=== PATIENT | female | born 1940 | race Caucasian/White ===

== ENCOUNTER 2017-04-11 16:50 | Inpatient (IN) | payer MEDICARE, OTHER ==
[~2017-04-11 16:50] MED LIST: ISOVUE-370 76%-LOCM 1 ML ONE; Iopamidol 370 76% 50 ML VIAL FS ONE
[2017-04-11] MEDS ORDERED: Ondansetron HCl/PF 4 MG/2 ML Vial ONE (17:27)
[2017-04-11] MEDS ORDERED: Morphine 4 MG/ML VIAL ONE (17:27)
[2017-04-11 18:06] LABS: #Lymphocytes 0.7 thou/uL (1.20-3.40); #Monocytes 0.5 thou/uL (0.11-0.59); #Neutrophils 10.1 thou/uL (1.40-6.50); %Basophils 0.4 % (0.0-1.0); %Lymphocytes 6.2 % (21.0-51.0); %Monocytes 4.1 % (0.0-10.0); %Neutrophils 89.3 % (42.0-75.0); Hemoglobin 14.4 g/dL (12.0-16.0); Mean Corpuscular HGB CONC 32.9 g/dL (32.0-36.0); Mean Corpuscular Hemoglobin 31.1 pg (27.0-31.0); Mean Corpuscular Volume 94.5 fl (81.0-99.0); Mean Platelet Volume 10.5 fL (7.4-10.4); Platelet Count 110 thou/uL (130-400); RBC Distribution Width 16.3 % (11.5-14.5); Red Blood Cell (RBC) Count 4.63 mill/uL (4.20-5.40); White Blood Cell (WBC) Count 11.3 thou/uL (4.8-10.8)
[2017-04-11] MEDS ORDERED: ADMIXTURE FEE IVPB SCH (18:15)
[2017-04-11] MEDS ORDERED: STERILE WATER IVPB SCH (18:15)
[2017-04-11] MEDS ORDERED: MEROPENEM IVPB SCH (18:15)
[2017-04-11] MEDS ORDERED: Meropenem 1 GM, Admixture Fee 1 EACH in Sterile Water 20 ML IVPB SCH (18:15)
[2017-04-11 18:28] LABS: Troponin I 0.235 ng/mL (< 0.028)
[2017-04-11 18:31] LABS: ALT (SGPT) 61 U/L (8-55); AST (SGOT) 115 U/L (5-34); Albumin 2.9 g/dL (3.4-4.8); Alkaline Phosphatase 44 U/L (40-150); Anion Gap 20 mmol/L (10-20); BUN (Urea Nitrogen) 57 mg/dL (9.8-20.1); Bilirubin, Total 0.8 mg/dL (0.2-1.2); Calc. Creatinine Clearance 0 mL/min (70-130); Calcium 9.4 mg/dL (7.8-10.44); Carbon Dioxide 13 mmol/L (23-31); Chloride 107 mmol/L (98-107); Estimated GFR-MDRD 26; Globulin 3.6 g/dL (2.4-3.5); Glucose 138 mg/dL (83-110); Lipase 144 U/L (8-78); Potassium 4.8 mmol/L (3.5-5.1); Protein, Total 6.5 g/dL (6.0-8.3); Sodium 135 mmol/L (136-145)
[2017-04-11 18:41] LABS: CKMB 7.8 ng/mL (0-6.6)
[2017-04-11 18:51] LABS: Bilirubin Small (Negative); Blood, Urine Negative (Negative); Clarity CLOUDY (Clear); Glucose, Urine (Dipstick) Negative (Negative); Leukocyte Negative (Negative); Nitrite Negative (Negative); Protein, Urine (Dipstick) 30 mg/dL (Neg-Trace); Specific Gravity, Urine 1.028 (1.002-1.036); Urobilinogen 0.2 mg/dL (0.2-1.0)
[2017-04-11 18:54] LABS: Bacteria/HPF None Seen HPF (None Seen); RBC/HPF 0-3 HPF (0-3); Squamous Epithelial 0-3 HPF (0-3); WBC/HPF 0-3 HPF (0-3); Yeast-AUWi Flag 24.2 (0-25.0)
[2017-04-11 18:55] LABS: Hyaline Casts/LPF 0-3 HYALINE CAST LPF (0-3 Hyaline); Pathc Cast-AUWi Flag 5.01 (0-2.49)
[2017-04-11 18:56] LABS: Manual Microscopic Reviewed? No Path Casts Seen
[2017-04-11] MEDS ORDERED: Sodium Bicarb 50 MEQ/50 ML Abboject 8.4% SYRINGE ONE (19:00)
--- NOTE | 2017-04-11 20:38 | RAD ---
PORTABLE SEMI UPRIGHT CHEST ONE VIEW: History: 76-year-old female for tube placement evaluation. Comparison: 11-13-16 FINDINGS: An NG tube is noted extending into the stomach. Right subclavian catheter in place with the tip in th e superior vena cava. No evidence for pneumothorax, pleural effusion, or other acute process. Stable biapical pleural thickening. IMPRESSION: Minimal stable chronic changes. Left subclavian catheter and NG tubes in satisfactory position. No pn eumothorax, pleural effusion, or other acute process. POS: [facility]
--- NOTE | 2017-04-11 21:57 | CON ---
DATE OF CONSULTATION: 04/11/2017 REQUESTING PHYSICIAN: Dr. Sheng Presley. HISTORY OF PRESENT ILLNESS: A 76-year-old woman with a history of steroid dependent COPD. The patient has been in the inpatient rehabilitation due to steroid-induced myopathy. The patient p resented with acute onset generalized abdominal pain today. She was brought to the CT scan for evalu ation. Following the CT scan, she was directly admitted to the emergency department. I have been as ked to evaluate the patient for the abdominal pain suspicious for partial small-bowel obstruction. A t the time of my evaluation, the patient rates her pain at 10/10. She has had multiple episodes of n onbilious emesis throughout today. She reports having had an episode of diarrhea this morning. She does not recall the last time she passed flatus. The patient denies any unexplained weight loss. Sh e denies any recent hematochezia or melena. She reports profound fatigue over the last several weeks . She denies any symptoms of gastroesophageal reflux disease. She denies any fevers or chills. PAST MEDICAL HISTORY: Significant for steroid dependent COPD, coronary arterial disease, aortic valv ular disease. Other pertinent past medical history includes hypothyroidism, obstructive sleep apnea, gastroesophageal reflux disease, chronic anxiety disorder and degenerative arthritic disease. PAST SURGICAL HISTORY: Pertinent for open cholecystectomy, total abdominal hysterectomy, partial col ectomy with primary anastomosis for diverticular disease, exploratory laparotomy and segmental small bowel resection with primary anastomosis for acute small-bowel obstruction, patient also has had perc utaneous transluminal coronary angiography. I suspect no stent was placed. Coronary arterial bypass graft and also bilateral knee surgeries. SOCIAL HISTORY: Patient is . She denies any cigarette smoking, ethanol or illicit drug abuse . FAMILY HISTORY: Noncontributory for this patient's age. PREHOSPITAL MEDICATION: Has been reviewed and is extensive. ALLERGIES: NEOMYCIN and STATINS. REVIEW OF SYSTEMS: A 10-point review of system is essentially unremarkable except for as stated in p ast medical history and chief complaint. PHYSICAL EXAMINATION: GENERAL: This reveals a 76-year-old normally developed woman who is otherwise coherent, interactive and appears stated age. The patient is alert and oriented x3. She appears to be in moderate acute d istress secondary to abdominal pain. VITAL SIGNS: Initial vital signs included a systolic blood pressure of 104, heart rate was in the 12 0, respiratory rate was 18, oxygen saturation is 100% on 2 L by nasal cannula oxygen. HEENT: Reveals normocephalic and atraumatic. Pupils equal, round, reactive to light and accommodati on. Extraocular muscles are intact bilaterally. No sclerae icterus is present. HEART: Reveals regular rate with sinus tachycardia. No murmurs or gallops auscultated. LUNGS: Clear to auscultation bilaterally. Breathing is regular and unlabored. ABDOMEN: Soft and nondistended. She has diffuse tenderness to palpation, which is nonfocal. Bowel sounds hypoactive. Liver and spleen nonpalpable below costal margins. EXTREMITIES: Reveals 2+ radial and pedal pulses bilaterally. No ankle edema is present. NEUROLOGIC: Reveals no focal deficits present. PERTINENT LABORATORY FINDINGS: Today includes a CBC with 11,300 white blood cells, hemoglobin 14.4, hematocrit is 43.7, platelet count is 110,000. Metabolic profile: Sodium 135, potassium is 4.8, chl oride is 107, bicarbonate 13, BUN 57, creatinine is 1.88, glucose is 138, lactic acid is 4.6, total b ilirubin is 0.8, AST and ALT noted at 115 and 61, respectively. Troponin I is elevated at 0.235. Se rum lipase is mildly elevated at 144. I have reviewed previously obtained noncontrast CT scan of the abdomen and pelvis, which reveals mildly dilated proximal small bowel, no free peritoneal fluid or p neumoperitoneum is noted. The involved dilated small bowel wall is thickened. IMPRESSION: Acute abdominal pain, likely secondary to acute partial small-bowel obstruction versus acute gastroen teritis versus acute ischemic enterocolitis. PLAN: 1. Nasogastric tube will be placed for decompression. 2. We will obtain a repeat CT scan of the abdomen and pelvis at this time with p.o. and IV contrast. 3. In the interim, we will provide patient with aggressive fluid resuscitation prior to repeat CT sc an of abdomen and pelvis. 4. Serial physical examination will be continued. 5. There is no acute surgical indication for this patient at this time; however, should a CT scan of the abdomen and pelvis or serial clinical examination should indicate, we will consider surgical exp loration at that time. Above findings and plan has been discussed with the patient and granddaughter at bedside. They both indicated understanding of information given. I have answered their questions. Thank you again, Dr. Presley, for allowing me the opportunity to participate in the care of this ashley ent.
[2017-04-11 22:52] LABS: Lactic Acid 2.7 mmol/L (0.5-2.2)
--- NOTE | 2017-04-11 23:25 | CT ---
ABDOMEN AND PELVIS CT SCAN WITH AND WITHOUT IV CONTRAST: History: Worsening abdominal pain. Comparison: Noncontrast study, 04-11-17. FINDINGS: Again noted are some parenchymal changes in the right lower lobe. Oral contrast was given approximate ly 2 hours ago, although oral contrast is still only within the stomach and has not progressed into t he duodenum. There is noted to be an area of abnormal intramural gas noted within the fourth portion of the duodenum raising concern for either that of a distal duodenal ulcer or possibly a focal area o f necrosis. There is some minimal focal decreased enhancement in the wall of the duodenum adjacent to this abnormal gas. There is notably one tiny punctate focus of extraluminal gas noted in the adjacen t mesentery concerning for a microperforation. The remainder of the small bowel demonstrates some dil atation and some minimal contrast enhancement of the wall as well as some surrounding mesenteric fat stranding. There is some minimal free fluid around the liver and in the pelvis. The celiac artery and superior mesenteric artery and inferior mesenteric arteries are patent. There is no noted to be a so mewhat flattened IVC raising concern for possible hypovolemia. There are multiple bilateral renal cys ts. Multiple anterior abdominal wall fat containing hernias are noted. There is some reflux into the distal esophagus from the stomach. IMPRESSION: Some abnormal gas within the wall of the fourth portion of the duodenum as well as some surrounding d ecreased wall enhancement and one very tiny punctate focus of gas within the mesentery raising concer n for an area of necrosis and microperforation from ischemia or possibly associated with an ulceratio n. The remainder of the small bowel shows some heterogeneous enhancement and some periintestinal mese nteric fat stranding which can also be seen in ischemia, but is nonspecific. Minimal free fluid aroun d the right lobe of the liver and also within the pelvis. Gastroesophageal reflux. Bilateral renal cy sts. Findings were discussed with Dr. Larson by phone at 10:40 p.m., including the need for potential surge ry. Code CR POS: [facility]
[2017-04-12] MEDS ORDERED: HYDROcodone/Acetaminophen 5/325 mg Tablet PO PRN (00:47)
[2017-04-12] MEDS ORDERED: Morphine 2 MG/ML SYRINGE SLOW IVP PRN (00:47)
[2017-04-12] MEDS ORDERED: Acetaminophen 325 MG TAB PO PRN (00:47)
[2017-04-12 00:58] VITALS: BMI 27.8
[2017-04-12] MEDS ORDERED: Pantoprazole 40 MG VIAL IVP SCH ×3 (01:30→17:00)
[2017-04-12] MEDS: Sodium Bicarbonate 75 MEQ in Dextrose 5% in Water 500 ML IV SCH ×4 (01:45→07:28)
[2017-04-12] MEDS: metroNIDAZOLE 500 MG in Premix Bag 1 BAG IVPB SCH ×2 (02:04→09:20)
[2017-04-12 02:22] LABS: Anion Gap 13 mmol/L (10-20); BUN (Urea Nitrogen) 59 mg/dL (9.8-20.1); Calc. Creatinine Clearance 32 mL/min (70-130); Calcium 8.4 mg/dL (7.8-10.44); Carbon Dioxide 19 mmol/L (23-31); Chloride 109 mmol/L (98-107); Estimated GFR-MDRD 25; Glucose 129 mg/dL (83-110); Potassium 4.9 mmol/L (3.5-5.1); Sodium 136 mmol/L (136-145)
[2017-04-12 02:33] LABS: Anisocytosis SLIGHT = 6-15 cells (100X) (0-5/hpf); Band 19 % (5-11); Lymphocytes 2 % (21-51); MDiff Complete? YES; Mean Corpuscular HGB CONC 32.7 g/dL (32.0-36.0); Mean Corpuscular Hemoglobin 31.3 pg (27.0-31.0); Mean Corpuscular Volume 95.9 fl (81.0-99.0); Mean Platelet Volume 10.3 fL (7.4-10.4); Monocytes 1 % (0-10); Neutrophil 78 % (42-75); PLT Morphology Comment Appears Decreased; Platelet Count 91 thou/uL (130-400); RBC Distribution Width 16.3 % (11.5-14.5); Red Blood Cell (RBC) Count 3.83 mill/uL (4.20-5.40); White Blood Cell (WBC) Count 12.8 thou/uL (4.8-10.8)
[2017-04-12] MEDS: MEROPENEM 1 GM/50 ML 1 GM in Premix Bag 1 BAG IVPB SCH ×2 (04:23→12:00)
[2017-04-12 05:55] LABS: Lactic Acid 1.6 mmol/L (0.5-2.2)
[2017-04-12] MEDS ORDERED: Meropenem 1 GM in Sodium Chloride 0.9% 100 ML IVPB SCH (06:00)
--- NOTE | 2017-04-12 06:33 | HP ---
CHIEF COMPLAINT: Abdominal pain, nausea, vomiting. HISTORY OF PRESENT ILLNESS: This is a 76-year-old pleasant lady, who was admitted to rehabilitation facility for progressive weakness due to steroid induced myopathy on the 03/26 and comes into the [facility] today because of sudden onset of severe abdominal pain, nausea and vomiting. The people out th were consulted and sent her to the hospital to do a CT scan and from there she came to our hospit al. Initial evaluation revealed a troponin of 0.035 and lactate of 4.6 because of the severe abdomin al pain. Dr. Larson was consulted and he has recommended the patient be admitted to the [facility] to rule out ischemic bowel. We are going to do a CT scan of the abdomen with p.o. contrast and IV contrast a s well for further investigation. She also had episodes of vomiting nonbilious material with no bloo d in it today. PAST MEDICAL HISTORY: Significant for steroid induced myopathy, acute renal failure on chronic kidne y injury, coronary artery disease, aortic stenosis, hypertension, hypothyroidism, XU, , GERD, a nxiety, systemic rheumatoid arthritis, CABG, cholecystectomy, hysterectomy, PTCA, bilateral knee surg eries, bilateral shoulder surgeries, and history of colon surgery. The patient also has moderate aor tic stenosis. PSYCHIATRIC HISTORY: Significant for anxiety and depression. PAST SURGICAL HISTORY: Significant for CABG x2, cholecystectomy, hernia repair, hysterectomy, knee s urgery. SOCIAL HISTORY: She is , lives near by the daughter. Denies alcohol, tobacco, or illicit jewell g use. FAMILY HISTORY: No strong family history of premature coronary artery disease, stroke or cancer. ALLERGIES: NEOMYCIN and STATIN. MEDICATIONS: Please see MAR. REVIEW OF SYSTEMS: Significant for abdominal pain and nausea, vomiting, otherwise no fever, no chill s, no headache, no eye pain, no hearing loss, no latencies. No cough or chest pain, diarrhea, dysuri a or polyuria. No memory or mood changes. No neck pain. PHYSICAL EXAMINATION: VITAL SIGNS: Blood pressure 108/85, pulse is 126, respirations 20, temperature afebrile. GENERAL: Patient is lying in bed in moderate distress because of the abdominal pain. HEENT: Atraumatic, normocephalic. Pupils are equally round, react to light. Extraocular movements are intact. Mucous members moist. NECK: Supple. No JVD. CHEST: Breath sounds heard. There are no rales or rhonchi. HEART: S1, S2. No murmurs or gallops. ABDOMEN: Diffusely tender. Bowel sounds are sluggish. No pulsatile masses noted. EXTREMITIES: No cyanosis, clubbing, or edema. Distal pulses present. NEUROLOGIC: Alert, awake, and oriented. No cranial deficits. No sensorimotor deficits. LABORATORY DATA: Lipase is 144. CT scan without contrast reveals enteritis and periumbilical hernia s. Chest x-ray was negative. Ejection fraction done on 10/2016 was 60%. Lactic acid is 4.6, tropon in I 0.235. WBC count is 11 with neutrophils of 83%, hemoglobin is 14, INR is 1.0. Potassium is 4.8 , creatinine is 1.8, AST is 115, ALT is 61. ASSESSMENT AND PLAN: 1. Abdominal pain with nausea and vomiting with a high lactic acid and elevated white count, rule ou t ischemic bowel. Consult Dr. Larson and follow his recommendations. Follow CT with IV contrast and p.o. contrast. 2. Lactic acidosis. IV fluids with 1 ampule of bicarbonate. 3. Follow lactate levels. Empirically treat with Zosyn. 4. Elevated troponins with a history of coronary artery disease, status post coronary artery bypass graft. We will consult Dr. Gusman. We will consult Cardiology and trend troponins. 5. Acute renal failure on chronic kidney disease. We will consult Dr. Freitas and continue IV fluids. 6. History of chronic obstructive pulmonary disease, stable. 7. Coronary artery disease status post coronary artery bypass graft, stable. 8. Moderate aortic stenosis, stable. 9. Hypothyroidism, stable. 10. History of dermatomyositis stable with steroid dependency, stable. We will put the patient on h ydrocortisone. Patient is FULL CODE right now. 11. Sequential compression devices for deep venous thrombosis prophylaxis. I will work with Dr. Danny kay and other consultants further caring for the patient.
--- NOTE | 2017-04-12 06:54 | OP ---
DATE OF OPERATION: 04/11/2017 PREOPERATIVE DIAGNOSES: 1. Acute abdominal pain. 2. Acute lactic acidosis secondary to dehydration secondary to possible ischemic bowel disease versu s gastroenteritis. 3. Acute kidney injury, secondary to #2. POSTOPERATIVE DIAGNOSES: 1. Acute abdominal pain. 2. Acute lactic acidosis secondary to dehydration secondary to possible ischemic bowel disease versu s gastroenteritis. 3. Acute kidney injury, secondary to #2. PROCEDURES PERFORMED: Placement of triple lumen left subclavian central venous catheter. INDICATIONS FOR PROCEDURE: This is a 76-year-old woman presented with acute severe abdominal pain. Noncontrast abdominal CT scan was suspicious for acute partial small-bowel obstruction versus gastroe nteritis versus ischemic gastroenteritis. The patient has a complicating acute lactic acidosis as we ll as acute kidney injury. Multiple attempts to secure a dependable peripheral IV access was then un successful. Placing a central venous catheter to facilitate therapeutics. DESCRIPTION OF PROCEDURE: Informed consent obtained from the [facility] Left chest wall was sterilely prepped and draped in usual fashion. Skin below the left clavicle anesthetized with 1% lidocaine. The left subclavian vein was cannulated with an 18 gauge introducer needle returning dark venous blood. Guidewire was passed through this needle and advanced into the s ubclavian vein without resistance. Needle was withdrawn over the guidewire. A stab incision was mad e adjacent to the guidewire using an 11 scalpel. Dilator was passed over the guidewire dilating subc utaneous tissues. Triple-lumen central venous catheter was then advanced over the guidewire and plac ed in the left subclavian vein without resistance and stopping at the 18 cm ivory. The guidewire was removed. Dark venous blood was aspirated from all 3 ports, which were then individually flushed with saline. Catheter was secured to the anterior chest wall using 3-0 silk suture at 2 points. Biopatc h and sterile dressings was applied. Portable chest x-ray was obtained, which reveals proper placeme nt and no pneumothorax. The patient tolerated this procedure without any apparent complication and r emains hemodynamically stable following completion of the procedure.
[2017-04-12] MEDS ORDERED: FLU VACC TS2017-18 (>65YR) 0.5 ML SYRINGE IM ONE (09:00)
--- NOTE | 2017-04-12 09:25 | RAD ---
KUB: Comparison: 04-11-17 History: Abdominal pain. FINDINGS: Single view of the abdomen shows a nonspecific, nonobstructed bowel gas pattern. Contrast is seen in the colon from previous contrast examination. Contrast is seen in the bladder. No obvious free air is seen on this examination. An NG tube is seen in the stomach. IMPRESSION: Nonobstructed bowel gas pattern. POS: [facility]
[2017-04-12] MEDS: Heparin 5,000 UNITS/ML VIAL SC SCH ×3 (09:26→21:37)
--- NOTE | 2017-04-12 11:05 | PRG ---
DATE OF SERVICE: 04/12/2017 SUBJECTIVE: Ms. Millan is awake and alert today. She reports a 7-8/10 abdominal pain. She denies any nausea at this time. Nasogastric tube returned over a liter of nonbilious effluent since placement yesterday. The patient denies any fever or chills. Urinary output has been approximately 30 mL hour . OBJECTIVE: VITAL SIGNS: Today includes blood pressure 124/69, pulse 122, respiratory rate is 22, maximum temper ature in the last 24 hours is 99 degrees Fahrenheit, oxygen saturation is 100% on 2 liters by nasal c annula oxygen. HEENT: Reveals normocephalic and atraumatic. Pupils equal, round, and reactive to light and accommo dation. HEART: Reveals regular rate with tachycardia. No murmurs or gallops auscultated. CHEST: Lungs clear to auscultation bilaterally. Breathing is regular and unlabored. ABDOMEN: Soft and moderately distended. She has severe pallor umbilical right-sided abdominal pain with gross rebound tenderness present. Bowel sounds hypoactive. Liver and spleen remains nonpalpabl e below costal margins. NEUROLOGIC: Reveals no focal deficits present. LABORATORY DATA: Today includes CBC with increased white blood cell count 12,800, hemoglobin 12.0, h ematocrit is 36.7, platelet count is 91,000. Metabolic profile: Sodium 136, potassium is 4.9, chlor manjula is 109, bicarbonate 19, BUN 59, creatinine is 1.92, glucose is 129. Lactate is normal today at 1 .6. IMPRESSION: 1. Persistent severe abdominal pain. 2. Acute kidney injury. 3. Resolving lactic acidosis. 4. I am concerned about the persistent abdominal pain given the CT scan findings suggestive of ische waleska process with microperforation. PLAN: 1. I have discussed the above findings with the patient and her daughter, Nohemi, via telephone conver dionisio. 2. I recommend exploratory laparotomy with possibility for small bowel resection. I am concerned th at the patient may have a closed loop obstructive process secondary to intra-abdominal adhesions. Th e patient and daughter indicates understanding of information given. I answered their questions.
--- NOTE | 2017-04-12 11:06 | CON ---
DATE OF CONSULTATION: 04/12/2017 HISTORY: The patient is a 76-year-old female who has been to our office before. She has chronic obs tructive pulmonary disease. She is on low flow O2. She presented with abdominal pain. She was seen by General Surgery. She is scheduled to go to surgery this morning for an exploratory l aparotomy. Small-bowel obstruction. She had pain off and on for a period of time, vomiting, also had some loose stools. PAST MEDICAL HISTORY: Pertinent for chronic obstructive pulmonary disease, coronary artery disease, reflux, hypertension, arthritis, renal insufficiency. PAST SURGICAL HISTORY: Have included bypass, gallbladder, hernia repair. SOCIAL/FAMILY HISTORY: No alcohol abuse or tobacco abuse. She has never smoked in the past. Her pulmonary function test done 11/2016 shows mild reduction of vital capacity, flows are normal, de creased capacity, normal essentially and normal study. MEDICATIONS FROM HOME: Her list of medicine from home includes prednisone 10 twice a day, Ranexa 100 0, omeprazole 20, vitamin, Dulera, Midodrine 5, metoprolol 12.5, methotrexate 7.5, lisinopril 10, Syn throid 25, Lasix 10, aspirin, allopurinol. ALLERGIES: NEOMYCIN. REVIEW OF SYSTEMS: Ten point negative. PHYSICAL EXAMINATION: GENERAL: She is much improved. She has had less abdominal pain compared to yesterday. VITAL SIGNS: Sats 100% on 2 liters, respiratory rate 18, temperature 98, pulse 122. CHEST: Chest revealed no wheezing. CARDIAC: Normal S1, S2. ABDOMEN: Soft, no masses. Initial chest x-ray shows no acute infiltrates. Previous surgical scar from her coronary artery bypa ss graft. White count 12,000, H&H 12 and 36, platelet count is low at 91,000. Creatinine 1.92. IMPRESSION: 1. Acute abdomen. 2. Nonsmoker with a relatively normal pulmonary function test. 3. Azotemia. 4. Rheumatoid arthritis. 5. Anxiety. 6. Depression. 7. Acid reflux. 8. Coronary artery disease. 9. Aortic stenosis. PLAN: Broad-spectrum antibiotics as per Surgery. Meropenem and Flagyl initiated. She is to go for a lap today. Pulmonary will follow postoperatively. This is a 50 minute time spent at the bedside for patient management and care.
[2017-04-12] MEDS ORDERED: Midazolam HCl 2 mg/2 ml Vial ONE (11:11)
[2017-04-12] MEDS ORDERED: Fentanyl 250 MCG/5 ML VIAL ONE (11:11)
[2017-04-12] MEDS ORDERED: Ondansetron HCl/PF 4 MG/2 ML Vial IVP PRN (12:43)
--- NOTE | 2017-04-12 13:14 | PDOC.PN ---
- Subjective Encounter Start Date: 04/12/17 Encounter Start Time: 09:15 -: old records requested/rev pt has abdominal pain, has NG tube with LIS, no fever has not passed BM or have bowel sound - Objective MAR Reviewed: Yes Vital Signs & Weight: Vital Signs (12 hours) Temp Pulse Resp BP Pulse Ox 04/12/17 07:53 98.8 F 122 H 22 H 100 04/12/17 07:00 98.7 F 113 H 20 124/69 100 04/12/17 04:00 98.8 F 122 H 22 H 125/68 100 04/12/17 01:45 99.0 F 116 H 20 100 Weight Weight 178 lb 3.2 oz I&O: 04/11/17 04/12/17 04/13/17 06:59 06:59 06:59 Intake Total 850 Output Total 400 Balance 450 Result Diagrams: 04/12/17 01:36 04/12/17 01:36 Radiology Reviewed by me: Yes (CT abdomen) EKG Reviewed by me: Yes (NSR) Phys Exam - Physical Examination Constitutional: NAD HEENT: PERRLA, moist MMs, sclera anicteric NG tube with LIS Neck: no JVD, supple Respiratory: no wheezing, no rales, no rhonchi Cardiovascular: RRR, no rub SM+ at aortic area right side rebount tenderness, Musculoskeletal: no edema, pulses present Neurological: non-focal, normal sensation, moves all 4 limbs Psychiatric: normal affect, A&O x 3 Skin: no rash, normal turgor Dx/Plan (1) Acute abdominal pain Code(s): R10.9 - UNSPECIFIED ABDOMINAL PAIN Status: Acute (2) Acute kidney failure Status: Acute (3) Demand ischemia of myocardium Code(s): I24.8 - OTHER FORMS OF ACUTE ISCHEMIC HEART DISEASE Status: Acute (4) Ischemia, bowel Code(s): K55.9 - VASCULAR DISORDER OF INTESTINE, UNSPECIFIED Status: Acute (5) Lactic acidosis Code(s): E87.2 - ACIDOSIS Status: Acute (6) Transaminitis Code(s): R74.0 - NONSPEC ELEV OF LEVELS OF TRANSAMNS & LACTIC ACID DEHYDRGNSE Status: Acute (7) Anxiety and depression Code(s): F41.9 - ANXIETY DISORDER, UNSPECIFIED; F32.9 - MAJOR DEPRESSIVE DISORDER, SINGLE EPISODE, UNSPECIFIED Status: Chronic (8) Arthritis, rheumatoid Code(s): M06.9 - RHEUMATOID ARTHRITIS, UNSPECIFIED Status: Chronic (9) CAD (coronary artery disease) Code(s): I25.10 - ATHSCL HEART DISEASE OF [place] CORONARY ARTERY W/O ANG PCTRS Status: Chronic (10) COPD (chronic obstructive pulmonary disease) Status: Chronic (11) Dyslipidemia Code(s): E78.5 - HYPERLIPIDEMIA, UNSPECIFIED Status: Chronic (12) GERD (gastroesophageal reflux disease) Code(s): K21.9 - GASTRO-ESOPHAGEAL REFLUX DISEASE WITHOUT ESOPHAGITIS Status: Chronic (13) Gout Code(s): M10.9 - GOUT, UNSPECIFIED Status: Chronic (14) Hypertension Code(s): I10 - ESSENTIAL (PRIMARY) HYPERTENSION Status: Chronic (15) Moderate aortic stenosis Code(s): I35.0 - NONRHEUMATIC AORTIC (VALVE) STENOSIS Status: Chronic - Plan cont current plan of care, continue antibiotics * continue IVF * keep NPO * control pain with pain meds * still has no improvement with conservative treatment * ? may need surgery * continue NG tube with LIS * supportive care * surgeon on case. * monitor labs Review of Systems - Review of Systems ENT: negative: Ear Pain, Ear Discharge, Nose Pain, Nose Discharge, Nose Congestion, Mouth Pain, Mouth Swelling, Throat Pain, Throat Swelling, Other Respiratory: negative: Cough, Dry, Shortness of Breath, Hemoptysis, SOB with Excertion, Pleuritic Pain, Sputum, Wheezing Cardiovascular: negative: chest pain, palpitations, orthopnea, paroxysmal nocturnal dyspnea, edema, light headedness, other Gastrointestinal: Nausea, Abdominal Pain. negative: Vomiting, Diarrhea, Constipation, Melena, Hematochezia, Other Genitourinary: negative: Dysuria, Frequency, Incontinence, Hematuria, Retention , Other Musculoskeletal: negative: Neck Pain, Shoulder Pain, Arm Pain, Back Pain, Hand Pain, Leg Pain, Foot Pain, Other Skin: negative: Rash, Lesions, Abad, Bruising, Other - Medications/Allergies Allergies/Adverse Reactions: Allergies Allergy/AdvReac Type Severity Reaction Status Date / Time latex Allergy Rash Verified 04/12/17 01:00 neomycin Allergy Hives Verified 04/12/17 01:00 Medications: Current Medications Acetaminophen (Tylenol) 650 mg PO Q4H PRN PRN Reason: Headache/Fever or Pain Hydrocodone Bitart/Acetaminophen ([place] 5/325) 1 tab PO Q4H PRN PRN Reason: Moderate Pain (4-6) Fentanyl (Pacu-Sublimaze) 50 mcg SLOW IVP Q10MIN PRN PRN Reason: Moderate to Severe Pain (6-10) Stop: 04/12/17 15:43 Heparin Sodium (Porcine) (Heparin) 5,000 units SC TID [facility] Last Admin: 04/12/17 09:26 Dose: Not Given Metronidazole 500 mg/ Device 100 mls @ 100 mls/hr IVPB 0200,1000,1800 [facility] Last Admin: 04/12/17 09:20 Dose: 100 mls Sodium Bicarbonate 75 meq/ (Dextrose/Water) 575 mls @ 125 mls/hr IV 0115 [facility] Last Admin: 04/12/17 07:28 Dose: 575 mls Meropenem 1 gm/ Device 50 mls @ 100 mls/hr IVPB 0400,1200,2000 [facility] Last Admin: 04/12/17 04:23 Dose: 50 mls Morphine Sulfate (Morphine) 2 mg SLOW IVP Q4H PRN PRN Reason: Mild-Moderate Pain (1-5) Ondansetron HCl (Pacu-Zofran) 4 mg IVP ONE PRN PRN Reason: Nausea/Vomiting Stop: 04/12/17 15:43 Pantoprazole Sodium (Protonix) 40 mg IVP Q12HR [facility] Last Admin: 04/12/17 09:25 Dose: 40 mg Sodium Chloride (Flush - Normal Saline) 10 ml IV Q12HR [facility] Last Admin: 04/12/17 09:26 Dose: 10 ml
[2017-04-12] MEDS ORDERED: Fentanyl 100 MCG/2 ML VIAL ONE ×2 (14:26→15:26)
--- NOTE | 2017-04-12 14:41 | OP ---
DATE OF CONSULTATION: 04/12/2017 GI ENDOSCOPY NOTE SURGEON: Gurmeet Barrios M.D. MILL MANAGER SURGEON: None. PROCEDURES: 1. Esophagogastroduodenoscopy, diagnostic, intraoperative. 2. Flexible sigmoidoscopy, diagnostic, intraoperative. INDICATIONS: 1. Bowel perforation, suspected to be in the fourth portion of the duodenum based on CT imaging appe arance. 2. History of left hemicolectomy. I was called into the operating room by Dr. Larson, who was in the middle of open laparotomy for suspe cted perforation of the fourth portion of the duodenum, based on CT appearance. The patient presente d with acute abdomen and peritonitis. Dr. Larson is requesting intraoperative EGD to try to localize the area of perforation and assess etiology, whether it be ischemic bowel versus duodenal ulcer. He had to take down some dense adhesions from the area of colocolonic anastomosis in the left colon and is requesting evaluation of the anastomotic site with flexible sigmoidoscopy as well. The portable e ndoscopy equipment was brought into the operating room. At first, a Pentax adult upper endoscope was placed into the oropharynx and passed through the cricopharyngeus under direct visualization. The e sophageal mucosa appeared normal throughout. The endoscope was passed into the stomach. Forward and retroflexed views of the entire gastric mucosa were obtained. There are few small ulceration in the gastric fundus which may just represent nasogastric tube trauma. Remainder of the gastric mucosa ap pears normal. The endoscope was passed through the pylorus and into the first and second portions of the duodenum. Unfortunately, the upper endoscope was not long enough with the way the body was posi tioned to reach the area in question and therefore, the upper endoscope was removed and a Pentax adul t colonoscope was used. This was passed through the cricopharyngeus beyond the pylorus and all the w ay to the first portion of the jejunum. Careful examination of the entire duodenum was made. In the fourth portion of the duodenum, there is an edematous ulcerated area. There is no active bleeding f rom this site. I was unable to see into the base of this area, but it does appear to be a duodenal u lcer. On laparoscopic views, this is the site of the perforation confirmed by Dr. Larson with leakage of gas from the bowel at this site with endoscope passage. Therefore, these areas of perforation an d fourth portion of the duodenum was confirmed. The surrounding duodenal mucosa appears normal, so t his is not felt likely to represent ischemic bowel, but rather discrete duodenal ulcer which is perfo rated spontaneously. The endoscope was then removed from the patient's mouth and we changed position . The scope was passed per the rectum. After digital rectal exam was unremarkable, the colonoscope was passed up to 70 cm from the anal verge which is estimated to be just beyond the splenic flexure. This was an unprepped flexible sigmoidoscopy. There was a small amount of adherent stool, but the m ucosa of the entire colon examined and appeared normal. There was a healthy appearing anastomosis in the rectosigmoid area. There was no evidence of perforation or disruption of the lower colonic anas tomosis. The colonoscope was completely withdrawn and my portion of the procedure was complete. Dr. Larson then proceeded with the case. IMPRESSION: 1. Discrete ulcer in the fourth portion of the duodenum, unable to visualize the base, nonbleeding, but representing the site of spontaneous perforation. 2. Few small ulcerations in the gastric fundus, possibly just representing nasogastric tube trauma. 3. Otherwise, normal esophagogastroduodenoscopy. 4. Healthy anastomosis in rectosigmoid colon. 5. Otherwise, normal unprepped flexible sigmoidoscopy to 70 cm. RECOMMENDATIONS: 1. Dr. Larson to complete surgery. 2. Per Dr. Larson, plan will likely be to have the patient on a PPI drip with drains in place and all ow for ulcer to heal. He plans to feed via nasojejunal tube in the meantime. 3. Please call back if GI can be of any assistance going forward.
[2017-04-12] MEDS ORDERED: HYDROmorphone 0.5 MG/0.5 ML SYRINGE ONE (15:26)
[2017-04-12] MEDS ORDERED: Fentanyl 20 MCG/ML 250 ML IVPB SCH (17:00)
[2017-04-12] MEDS ORDERED: ePHEDrine/0.9% NaCl/PF SYRINGE 50 mg/10 ml ONE (17:30)
[2017-04-12] MEDS ORDERED: Lidocaine 1% PF 5 ML VIAL ONE (17:30)
[2017-04-12] MEDS ORDERED: Propofol 200 MG/20 ML VIAL ONE (17:30)
[2017-04-12] MEDS ORDERED: Hydrocortisone Sod Succ/PF 100 mg/2 ml Vial ONE (17:30)
[2017-04-12] MEDS ORDERED: Succinylcholine Chloride 20 MG/ML 10 ml SYRINGE FS ONE (17:30)
[2017-04-12] MEDS ORDERED: PHENYLEPHRINE-NS 100 MCG/ML 10 ML SYRINGE ONE (17:30)
[2017-04-12] MEDS: Acetaminophen 1,000 MG in Premix Bag 1 BAG IVPB SCH (17:49)
[2017-04-12 18:35] LABS: Actual Bicarbonate (HCO3a) 19.4 mEq/L (22-26); Base Excess (BEa) -5.7 mEq/L (0 (+/-) 2.5); CO2 Tension 36.2 mmHg (35.0-45.0); Calcium, Ionized 1.1 mmol/L (1.12-1.30); Hematocrit-ABG 30.1 % (36.0-47.0); Hemoglobin (Hb) 9.8 g/dL (12.0-16.0); O2 Tension (PaO2) 173.5 mmHg (80.0-100.0); Puncture Site RRA; pH, Arterial 7.35 (7.35-7.45)
[2017-04-12] MEDS ORDERED: Lactated Ringer's 1,000 ML IV SCH (18:45)
[2017-04-12] MEDS: Lactated Ringer's 1,000 ML IV SCH ×2 (19:42→21:39)
--- NOTE | 2017-04-12 19:47 | OP ---
DATE OF OPERATION: 04/12/2017 PREOPERATIVE DIAGNOSES: 1. Acute abdominal pain. 2. Suspected ischemic enteritis with partial small-bowel obstruction. POSTOPERATIVE DIAGNOSES: 1. Acute abdominal pain. 2. Perforated fourth portion duodenal ulcer. 3. Extensive intra-abdominal adhesions with acute small-bowel obstruction. SURGERY PERFORMED: 1. Exploratory laparotomy. 2. Extensive adhesiolysis. 3. Oversew of fourth portion of the duodenal ulcer with Maulik patch. 4. Segmental small bowel resection with primary jejunojejunostomy. 5. Feeding surgical jejunostomy tube placement. SURGEON: Frederic Larson D.O. ANESTHESIA: General endotracheal. ESTIMATED BLOOD LOSS: 300 mL. FLUIDS GIVEN: 2200 mL crystalloids. SPONGE AND INSTRUMENT COUNT: Certified as correct x2. COMPLICATIONS: None apparent at the time of operation. INDICATIONS FOR OPERATION: This is a 76-year-old woman presented with severe abdominal pain. Clinic al and radiographic examination was consistent with a partial small-bowel obstruction with a suspicio n for ischemic proximal jejunum at the level of the fourth portion of the duodenum with micro-pneumop eritoneum adjacent to this area. Findings are consistent with a 3-mm ulcer perforation of the fourth portion of the duodenum at the ligament of Treitz. Also noted, extensive intra-abdominal adhesions causing multiple partial closed loop small bowel obstructions. DESCRIPTION OF PROCEDURE: Informed consent was obtained from the patient who was brought to the oper ating room and placed in supine position. Following general anesthesia, previous nasogastric tube wa s placed to wall suction. The abdomen was sterilely prepped and draped in the usual fashion. Midlin e incision was made using #10 scalpel through the previous incisional scar. Incision was carried kevon n to the level of the fascia using cautery with good hemostasis. Fascia is incised along the line of incision. The peritoneal cavity was carefully entered using a scalpel. Immediately, upon entrance into the peritoneal cavity. Extensive amount of intra-abdominal adhesions was encountered involving multiple loops of small bowel, remnant right and transverse colon as well as the stomach. Meticulous dissection of bowel was carried out, taking down adhesions as they were encountered. Once the right colon as well as the transverse colon were mobilized to reflect this off of the underlying small bow el, large amount of purulent pus was evacuated. Multiple loculations of the interloop abscesses were broken down by finger dissection. We then followed this down to the level of the ligament of Treitz where the bowel was markedly inflamed and thick walled. Given a prior knowledge of microperforation in this area and not seen any obvious ulcer, I invited the city auditor and esophagogastroscop y was performed by the city auditor. It was noted that there was bubbles of air once the stoma ch was insufflated. Then decided therefore to proceed with taking down of the fourth portion of the duodenum. This was mobilized off the ligament of Treitz using Metzenbaum scissors. Care was taken t o avoid injury to underlying structures. Immediately, there was 3-mm ulcer perforation in the antime senteric border. This was repaired with interrupted sutures of 3-0 silk and then imbricated with int errupted sutures of 3-0 silk in a Lembert fashion. The small bowel was then mobilized all the way do wn to the level of the terminal ileum taken down adhesions as they were encountered. It was noted th at the segment of jejunum was completely adhered to the level of the colorectal anastomosis. This wa s difficult to mobilize as this was densely adhered to this area. Using Metzenbaum scissors alternat ed with finger dissection, the loop of jejunum was mobilized up off the deep pelvis, taking care to a void injuries to the colorectal anastomosis. I intentionally performed an enterotomy of the adhering jejunal loop to avoid inadvertent injury to the colorectal anastomosis. This segment of bowel was q uite macerated and was densely adhered, decision was made therefore to perform a segmental small lilian l resection. To achieve this, I created a rent proximal and distal to the involved segment using a h emostat. The bowel was divided using a ROSIE stapler. Mesentery of the specimen was serially divided using LigaSure with good hemostasis. The specimen was passed off the operative field for onward bernard smission to pathology. At this juncture, the city auditor performed a flexible proctoscopy and the distal colon and rectum was insufflated and tested under saline. No bubbles of air were noted a s the colorectal anastomosis was intact. We then proceeded at this juncture to perform anastomosis. The staple end of the jejunum was brought in a [id number]-blmm fashion using interrupted sutures of 3-0 silk. Enterotomies were created, performed on both apices through which free ends of ROSIE stapler wa s introduced and a functional end-to-end, but anatomic [id number]-fr-[id number] jejunojejunostomy was perfected. The enterotomies were then closed using a reload of the ROSIE. Mesenteric defect was then repaired us ing interrupted sutures of 2-0 silk. I then turned my attention to the repaired fourth portion of th e duodenum which was inspected for good integrity. The abdominal cavity was copiously irrigated josé antonio r with saline solution at this juncture. I mobilized a lip of omentum placed in this over the repair site of the ulcer perforation in a Maulik patch fashion. This was achieved using 3-0 silk suture. Finding no other pathology, we decided to place a feeding jejunostomy tube as this patient was quite malnourished prior to surgery and will be placed on bowel rest and continuous infusion of proton pump inhibitor for days. I proceeded to place a jejunostomy tube. To achieve this, a 12-Beninese KAVITA jeju nostomy tube was brought into the peritoneal cavity through a separate stab incision in left upper qu adrant. A pursestring suture was made distal to the ulcer repair site, but proximal to the jejunojej unal anastomosis. Enterotomy was made at the center of the pursestring suture. I then introduced th e jejunostomy tube and advanced this distally. The pursestring suture was cinched into place and the n secured in the posterior peritoneum within the abdominal cavity using interrupted sutures of 3-0 si lk at 3 points. The abdominal cavity was again reirrigated with a saline solution, noting good hemos tasis. A #19 Deangelo drain was introduced adjacent to the ulcer repair site and a second Jose Juan-Barba drain was placed in the deep pelvis. Both drains were allowed to exit the abdominal cavity through separate stab incision, securing the drains to the intra-abdominal wall using 2-0 silk suture. The j ejunostomy tube was also secured to intra-abdominal wall using 2-0 silk suture. Finding no other pat hology, exploration was terminated. All sponges and instruments were accounted for. Small bowel was returned to normal anatomic location after 2 pieces of Seprafilm was placed in the deep pelvis and b etween small bowel loops. The redundant colon was drawn over the small bowel. The fascia was approx imated in the midline using a running stitch of #1 single stranded PDS. The subcutaneous tissues wer e then copiously irrigated with 3 liters of saline with pulse lavage. Good hemostasis noted in place . The skin incision was closed using shakeel. Wound VAC dressing was placed over the closure. The patient tolerated the operation without any apparent complication and was returned to the Intensive C are Unit in critical, but stable condition.
[2017-04-12 20:27] LABS: Actual Bicarbonate (HCO3a) 20.2 mEq/L (22-26); Base Excess (BEa) -4.8 mEq/L (0 (+/-) 2.5); CO2 Tension 36.9 mmHg (35.0-45.0); Hematocrit-ABG 28.1 % (36.0-47.0); Hemoglobin (Hb) 9.4 g/dL (12.0-16.0); O2 Tension (PaO2) 122.5 mmHg (80.0-100.0); pH, Arterial 7.36 (7.35-7.45)
[2017-04-12 20:28] LABS: Calcium, Ionized 1.2 mmol/L (1.12-1.30); Puncture Site ER
[2017-04-12 20:29] LABS: ALV-art Gradient 116.575 (0-20)
[2017-04-12] MEDS ORDERED: Calcium Chloride 13.6 MEQ in Sodium Chloride 0.9% 100 ML IVPB SCH (21:00)
[2017-04-12] MEDS ORDERED: STERILE WATER SLOW IVP SCH ×6 (22:30)
[2017-04-12] MEDS ORDERED: MEROPENEM SLOW IVP SCH ×6 (22:30)
[2017-04-12] MEDS ORDERED: ADMIXTURE FEE SLOW IVP SCH ×6 (22:30)
[2017-04-13] MEDS: Acetaminophen 1,000 MG in Premix Bag 1 BAG IVPB SCH ×4 (00:34→18:09)
[2017-04-13] MEDS: Pantoprazole 40 MG VIAL IVP SCH ×3 (00:36→18:09)
[2017-04-13] MEDS ORDERED: ADMIXTURE FEE SLOW IVP SCH (06:00)
[2017-04-13] MEDS ORDERED: STERILE WATER SLOW IVP SCH (06:00)
[2017-04-13] MEDS ORDERED: MEROPENEM SLOW IVP SCH (06:00)
[2017-04-13 06:04] LABS: #Lymphocytes 0.8 thou/uL (1.20-3.40); #Monocytes 0.2 thou/uL (0.11-0.59); #Neutrophils 7.7 thou/uL (1.40-6.50); %Basophils 0.5 % (0.0-1.0); %Lymphocytes 8.8 % (21.0-51.0); %Monocytes 2.4 % (0.0-10.0); %Neutrophils 88.3 % (42.0-75.0); Hemoglobin 8.2 g/dL (12.0-16.0); Mean Corpuscular HGB CONC 31.7 g/dL (32.0-36.0); Mean Corpuscular Hemoglobin 30.6 pg (27.0-31.0); Mean Corpuscular Volume 96.8 fl (81.0-99.0); Mean Platelet Volume 10.3 fL (7.4-10.4); Platelet Count 76 thou/uL (130-400); RBC Distribution Width 16.2 % (11.5-14.5); Red Blood Cell (RBC) Count 2.67 mill/uL (4.20-5.40); White Blood Cell (WBC) Count 8.7 thou/uL (4.8-10.8)
[2017-04-13] MEDS: Meropenem 1 GM, Admixture Fee 1 EACH in Sterile Water 20 ML SLOW IVP SCH ×2 (06:06→13:58)
[2017-04-13 06:22] LABS: Anion Gap 12 mmol/L (10-20); BUN (Urea Nitrogen) 52 mg/dL (9.8-20.1); Calc. Creatinine Clearance 37 mL/min (70-130); Calcium 8.9 mg/dL (7.8-10.44); Carbon Dioxide 24 mmol/L (23-31); Chloride 107 mmol/L (98-107); Estimated GFR-MDRD 30; Glucose 142 mg/dL (83-110); Magnesium 1.5 mg/dL (1.6-2.6); Sodium 138 mmol/L (136-145)
[2017-04-13] MEDS ORDERED: Fentanyl 100 MCG/2 ML VIAL ONE ×2 (07:27→07:30)
[2017-04-13] MEDS: Heparin 5,000 UNITS/ML VIAL SC SCH ×3 (07:33→22:54)
[2017-04-13 08:13] LABS: Actual Bicarbonate (HCO3a) 20.8 mEq/L (22-26); Base Excess (BEa) -2.4 mEq/L (0 (+/-) 2.5); Calcium, Ionized 1.2 mmol/L (1.12-1.30); Hematocrit-ABG 23.7 % (36.0-47.0); Hemoglobin (Hb) 7.9 g/dL (12.0-16.0); O2 Tension (PaO2) 161.6 mmHg (80.0-100.0); pH, Arterial 7.47 (7.35-7.45)
[2017-04-13 08:14] LABS: Puncture Site RRA
--- NOTE | 2017-04-13 08:26 | RAD ---
PORTABLE CHEST: 04/13/2017 PROVIDED CLINICAL HISTORY: Respiratory insufficiency. COMPARISON: 04/11/2017 FINDINGS: Significant interval change with respect to the prior examination is not evident. IMPRESSION: As above. POS: FLORES
[2017-04-13] MEDS ORDERED: Ondansetron HCl/PF 4 MG/2 ML Vial IVP PRN (09:19)
[2017-04-13] MEDS ORDERED: diphenhydrAMINE 50 MG/ML VIAL IM/IV PRN (09:19)
[2017-04-13] MEDS ORDERED: Promethazine HCl 25 MG/ML VIAL IM PRN (09:19)
[2017-04-13] MEDS ORDERED: Zolpidem Tartrate 5 MG TAB PO PRN (09:19)
[2017-04-13] MEDS ORDERED: diphenhydrAMINE 25 MG CAP PO PRN (09:19)
[2017-04-13] MEDS ORDERED: diphenhydrAMINE 50 MG/ML VIAL IM PRN (09:19)
[2017-04-13] MEDS ORDERED: HYDROmorphone 10 mg/100 ml CADD IVPB PRN (09:19)
[2017-04-13] MEDS ORDERED: Naloxone HCl 0.4 mg/ml Vial IV PRN (09:19)
[2017-04-13] MEDS ORDERED: Communication Order-Pharmacy FS SCH (09:30)
--- NOTE | 2017-04-13 09:31 | PRG ---
DATE OF SERVICE: 04/13/2017 SUBJECTIVE: She is extubated post-surgery, she is doing well, less abdominal pain. PHYSICAL EXAMINATION: VITAL SIGNS: Blood pressure 130/70, pulse is 87, respirations 18. CHEST: Reveals bilateral rhonchi. CARDIAC: Normal S1-S2. No gallops. ABDOMEN: Soft. No masses. LABORATORY: White count 8000, H&H 8 and 25, platelet count low at 76. X-ray was otherwise unremarka ble. Creatinine 1.6. IMPRESSION: 1. Abdominal sepsis. 2. Chronic obstructive pulmonary disease. PLAN: Continue neb treatments, broad-spectrum antibiotics per Surgery. She is thrombocytopenic. I will follow.
[2017-04-13] MEDS: Dextrose 5 %-0.45 % NaCl 1,000 ML IV SCH ×2 (10:00→21:11)
[2017-04-13] MEDS: MEROPENEM 1 GM/50 ML 1 GM in Premix Bag 1 BAG IVPB SCH ×2 (10:02→22:57)
--- NOTE | 2017-04-13 10:40 | PRG ---
DATE OF SERVICE: 04/13/2017 SUBJECTIVE: Ms. Millan is postoperative day #1 status post exploratory laparotomy, oversew of a perfor ated duodenal ulcer. The patient is awake and alert on mechanical ventilator support. She is tolera ting ventilatory wean. She reports adequate pain control. Urinary output has been marginal, but imp roving at 25-30 mL per hour which is slightly less than 0.5 liters per kilogram per hour. She is on no vasopressor support. OBJECTIVE: VITAL SIGNS: Includes blood pressure 128/70, pulse is 99, respiratory rate is 15, temperature is 99. 4 degrees Fahrenheit, oxygen saturation is 100% on FiO2 of 40% on CPAP. HEENT: Reveals normocephalic and atraumatic. Pupils equal, round, reactive to light and accommodati on. She has no sclerae icterus present. HEART: Reveals regular rate and rhythm, no murmurs or gallops auscultated. CHEST: Lungs are clear to auscultation bilaterally. Her breathing is regular and unlabored. ABDOMEN: Soft, nondistended. Incision remains intact and clean. She has no gross rebound tendernes s present. Two Jose Juan-Barba drains remain in place with moderate output of serosanguineous fluid. NEUROLOGIC: Reveals no focal deficits present. LABORATORY DATA: Includes CBC with 8700 white blood cells, hemoglobin 8.2, hematocrit is 25.8, plate let count is 76,000. Metabolic profile: Sodium 138, potassium 5.0, chloride is 107, bicarbonate is 24, BUN 52, creatinine is 1.67, glucose is 142, phosphorus is 5.0, magnesium is 1.5. I have personally reviewed chest x-ray obtained this morning which reveals no pneumothorax, pleural e ffusion or cardiomegaly. There is a slight increase in perihilar markings, worse on the left side. IMPRESSION: 1. Postoperative day #1 status post exploratory laparotomy with oversew of a perforated duodenal ulc er. The patient is hemodynamically stable. 2. Acute blood loss anemia with no clinical evidence of ongoing hemorrhage. 3. Resolving acute kidney injury. PLAN: 1. Wean and extubate the patient. 2. Increase activity as tolerated with physical and occupational therapy in progress. 3. Initiate trophic tube feeds through the surgical jejunostomy tube. Above findings and plan discussed with the patient who indicates understanding of the information giv en. I answered her questions.
--- NOTE | 2017-04-13 11:48 | PDOC.PN ---
- Subjective Encounter Start Date: 04/13/17 Encounter Start Time: 10:00 pt had surgery yesterday, after that she required intubation, this morning pt is extubated - Objective MAR Reviewed: Yes Vital Signs & Weight: Vital Signs (12 hours) Temp Pulse Resp BP 04/13/17 08:00 99.4 F 11 L 04/13/17 06:00 13 04/13/17 04:00 98.8 F 12 04/13/17 02:22 100 173/82 H 04/13/17 02:00 12 04/13/17 00:00 98.8 F 12 Weight Weight 178 lb 3.2 oz Most Recent Monitor Data Heart Rate from ECG 101 NIBP 150/66 NIBP BP-Mean 101 Respiration from ECG 17 SpO2 100 I&O: 04/12/17 04/13/17 04/14/17 06:59 06:59 06:59 Intake Total 850 3258 30 Output Total 400 623 205 Balance 450 2635 -175 Result Diagrams: 04/13/17 05:25 04/13/17 05:25 Radiology Reviewed by me: Yes (chest xray- stable) EKG Reviewed by me: Yes (sinus tachycardia) Phys Exam - Physical Examination Constitutional: NAD HEENT: PERRLA, sclera anicteric NG tube+ Neck: no JVD, supple central line+ Respiratory: no wheezing, no rales, no rhonchi Cardiovascular: RRR, no rub SM+ Gastrointestinal: soft surgical site with wound vac, J-tube+, SAMIR drain+ Musculoskeletal: no edema, pulses present Neurological: non-focal, normal sensation Lymphatic: no nodes Psychiatric: normal affect Skin: no rash, normal turgor Dx/Plan (1) Acute abdominal pain Code(s): R10.9 - UNSPECIFIED ABDOMINAL PAIN Status: Acute (2) Acute kidney failure Status: Acute (3) Demand ischemia of myocardium Code(s): I24.8 - OTHER FORMS OF ACUTE ISCHEMIC HEART DISEASE Status: Acute (4) Ischemia, bowel Code(s): K55.9 - VASCULAR DISORDER OF INTESTINE, UNSPECIFIED Status: Acute (5) Lactic acidosis Code(s): E87.2 - ACIDOSIS Status: Acute (6) Transaminitis Code(s): R74.0 - NONSPEC ELEV OF LEVELS OF TRANSAMNS & LACTIC ACID DEHYDRGNSE Status: Acute (7) Anxiety and depression Code(s): F41.9 - ANXIETY DISORDER, UNSPECIFIED; F32.9 - MAJOR DEPRESSIVE DISORDER, SINGLE EPISODE, UNSPECIFIED Status: Chronic (8) Arthritis, rheumatoid Code(s): M06.9 - RHEUMATOID ARTHRITIS, UNSPECIFIED Status: Chronic (9) CAD (coronary artery disease) Code(s): I25.10 - ATHSCL HEART DISEASE OF [place] CORONARY ARTERY W/O ANG PCTRS Status: Chronic (10) COPD (chronic obstructive pulmonary disease) Status: Chronic (11) Dyslipidemia Code(s): E78.5 - HYPERLIPIDEMIA, UNSPECIFIED Status: Chronic (12) GERD (gastroesophageal reflux disease) Code(s): K21.9 - GASTRO-ESOPHAGEAL REFLUX DISEASE WITHOUT ESOPHAGITIS Status: Chronic (13) Gout Code(s): M10.9 - GOUT, UNSPECIFIED Status: Chronic (14) Hypertension Code(s): I10 - ESSENTIAL (PRIMARY) HYPERTENSION Status: Chronic (15) Moderate aortic stenosis Code(s): I35.0 - NONRHEUMATIC AORTIC (VALVE) STENOSIS Status: Chronic (16) Hypomagnesemia Code(s): E83.42 - HYPOMAGNESEMIA Status: Acute (17) Jejunostomy tube present Code(s): Z93.4 - OTHER ARTIFICIAL OPENINGS OF GASTROINTESTINAL TRACT STATUS Status: Acute (18) Perforated duodenal ulcer Code(s): K26.5 - CHRONIC OR UNSPECIFIED DUODENAL ULCER WITH PERFORATION Status : Acute (19) Respiratory insufficiency Code(s): R06.89 - OTHER ABNORMALITIES OF BREATHING Status: Acute (20) S/P exploratory laparotomy Status: Acute (21) S/P small bowel resection Code(s): Z90.49 - ACQUIRED ABSENCE OF OTHER SPECIFIED PARTS OF DIGESTIVE TRACT Status: Acute (22) Small bowel obstruction due to adhesions Code(s): K56.50 - INTESTNL ADHESIONS, UNSP TO PARTIAL VERSUS COMPLETE OBST Status: Acute (23) Status post jejunostomy Code(s): Z93.4 - OTHER ARTIFICIAL OPENINGS OF GASTROINTESTINAL TRACT STATUS Status: Acute - Plan cont current plan of care, continue antibiotics, respiratory therapy * pt is extubated * critical care post op as per Dr Larson * post surgical care * J-tube feeding * OUTPATIENT PHARMACY MANAGER for pain control * continue meropenam * medication reviewed as below * symptomatic treatment * will monitor in CCU. Review of Systems - Review of Systems Other: pt is sleepy and groggy after extubation , unable to participate with ROS so not reliable. - Medications/Allergies Allergies/Adverse Reactions: Allergies Allergy/AdvReac Type Severity Reaction Status Date / Time latex Allergy Rash Verified 04/12/17 01:00 neomycin Allergy Hives Verified 04/12/17 01:00 Medications: Current Medications Albuterol/Ipratropium (Duoneb) 3 ml NEB [id number] GABY Diphenhydramine HCl (Benadryl) 25 mg IM/IV Q3H PRN PRN Reason: Itching Diphenhydramine HCl (Benadryl) 25 mg PO Q3H PRN PRN Reason: Itching Heparin Sodium (Porcine) (Heparin) 5,000 units SC TID [facility] Last Admin: 04/13/17 07:33 Dose: 5,000 units Hydromorphone HCl (Dilaudid Cadd) 0 mg IVPB INF PRN PRN Reason: Pain Last Admin: 04/13/17 10:57 Dose: 10 mg Acetaminophen 1,000 mg/ Device 100 mls @ 400 mls/hr IVPB Q6HR [facility] Stop: 04/13/17 18:01 Last Admin: 04/13/17 06:06 Dose: 100 mls Meropenem 1 gm/ Miscellaneous Medication 1 each/ Sterile Water 20 mls @ 120 mls /hr SLOW IVP Q8HR [facility] Last Admin: 04/13/17 06:06 Dose: 20 mls Dextrose/Sodium Chloride (D5 1/2 Ns) 1,000 mls @ 100 mls/hr IV .Q10H [facility] Last Admin: 04/13/17 10:00 Dose: 1,000 mls Mometasone Furoate/Formoterol Fumar (Dulera 200 Mcg/5 Mcg Inhaler) 2 puff INH BID-RT [facility] Naloxone HCl (Narcan) 0.2 mg IV Q5MIN PRN PRN Reason: Opiate Reversal Ondansetron HCl (Zofran) 4 mg IVP Q6H PRN PRN Reason: Nausea/Vomiting Pantoprazole Sodium (Protonix) 40 mg IVP 0100,0900,1700 [facility] Last Admin: 04/13/17 07:33 Dose: 40 mg Promethazine HCl (Phenergan) 12.5 mg IM Q4H PRN PRN Reason: Nausea/Vomiting Sodium Chloride (Flush - Normal Saline) 10 ml IV 0100,0900,1700 [facility] Last Admin: 04/13/17 07:33 Dose: 10 ml Sodium Chloride (Flush - Normal Saline) 10 ml IVF PRN PRN PRN Reason: Saline Flush Zolpidem Tartrate (Ambien) 5 mg PO HSPRN PRN PRN Reason: Insomnia
[2017-04-13] MEDS ORDERED: Fentanyl 100 MCG/2 ML VIAL SLOW IVP SCH (12:15)
[2017-04-13] MEDS ORDERED: Albumin 5% 0 ML ONE (13:17)
[2017-04-13] MEDS ORDERED: Insulin Detemir 100 UNITS/ML 16 UNITS in Pre-Filled Syringe 1 EACH SC SCH (15:00)
[2017-04-13] MEDS: Mometasone/Formoterol 120 PUFF INHALER INH SCH (20:05)
[2017-04-14] MEDS: Pantoprazole 40 MG VIAL IVP SCH ×3 (01:46→17:29)
[2017-04-14] MEDS: MEROPENEM 1 GM/50 ML 1 GM in Premix Bag 1 BAG IVPB SCH (05:23)
[2017-04-14] MEDS: Dextrose 5 %-0.45 % NaCl 1,000 ML IV SCH ×2 (05:23→14:04)
[2017-04-14 05:51] LABS: #Lymphocytes 0.7 thou/uL (1.20-3.40); #Monocytes 0.2 thou/uL (0.11-0.59); #Neutrophils 6.3 thou/uL (1.40-6.50); %Basophils 0.2 % (0.0-1.0); %Eosinophils 0.3 % (0.0-10.0); %Lymphocytes 9.7 % (21.0-51.0); %Monocytes 2.1 % (0.0-10.0); %Neutrophils 87.7 % (42.0-75.0); Hemoglobin 6.8 g/dL (12.0-16.0); Mean Corpuscular Hemoglobin 31.1 pg (27.0-31.0); Mean Corpuscular Volume 97.2 fl (81.0-99.0); Mean Platelet Volume 9.7 fL (7.4-10.4); Platelet Count 79 thou/uL (130-400); RBC Distribution Width 16.1 % (11.5-14.5); Red Blood Cell (RBC) Count 2.17 mill/uL (4.20-5.40); White Blood Cell (WBC) Count 7.2 thou/uL (4.8-10.8)
[2017-04-14] MEDS: Mometasone/Formoterol 120 PUFF INHALER INH SCH ×2 (07:22→20:00)
[2017-04-14] MEDS ORDERED: Magnesium Sulfate 3 GM in Sodium Chloride 0.9% 100 ML IVPB SCH (07:30)
[2017-04-14] MEDS ORDERED: Furosemide 40 MG/4 ML VIAL SLOW IVP SCH (08:30)
[2017-04-14 08:56] LABS: Anion Gap 9 mmol/L (10-20); BUN (Urea Nitrogen) 38 mg/dL (9.8-20.1); Calc. Creatinine Clearance 58 mL/min (70-130); Calcium 8.4 mg/dL (7.8-10.44); Carbon Dioxide 24 mmol/L (23-31); Chloride 108 mmol/L (98-107); Estimated GFR-MDRD 50; Glucose 115 mg/dL (83-110); Magnesium 1.5 mg/dL (1.6-2.6); Phosphorus 3.2 mg/dL (2.3-4.7); Potassium 4.2 mmol/L (3.5-5.1); Sodium 137 mmol/L (136-145)
--- NOTE | 2017-04-14 10:07 | PDOC.PN ---
- Subjective Encounter Start Date: 04/14/17 Encounter Start Time: 08:30 Patient seen and examined. No new complaints. No overnight events - Objective MAR Reviewed: Yes Vital Signs & Weight: Vital Signs (12 hours) Temp Pulse Resp BP Pulse Ox 04/14/17 07:45 98.3 F 109 H 16 151/74 H 97 04/14/17 07:20 97 20 98 04/14/17 04:00 97.7 F 94 16 144/70 H 97 04/13/17 23:58 99.4 F 95 17 131/62 97 Weight Admit Weight 178 lb Weight 178 lb 3.2 oz Most Recent Monitor Data Heart Rate from ECG 104 NIBP 116/54 NIBP BP-Mean 78 Respiration from ECG 17 SpO2 95 I&O: 04/13/17 04/14/17 04/15/17 06:59 06:59 06:59 Intake Total 3258 3254 0 Output Total 623 1520 Balance 2635 1734 0 Result Diagrams: 04/14/17 05:21 04/14/17 05:21 Phys Exam - Physical Examination Constitutional: NAD HEENT: PERRLA, moist MMs, sclera anicteric NG tube+ Neck: no JVD, supple Respiratory: no wheezing, no rales, no rhonchi reduced air entry at base Cardiovascular: RRR, no significant murmur, no rub Gastrointestinal: soft surigcal site with wound vac, 2 SAMIR drain, J-tube+, hill+ Musculoskeletal: no edema, pulses present SCD+ Neurological: non-focal, normal sensation Lymphatic: no nodes Psychiatric: normal affect Skin: no rash, normal turgor Dx/Plan (1) Acute abdominal pain Code(s): R10.9 - UNSPECIFIED ABDOMINAL PAIN Status: Acute (2) Acute kidney failure Status: Acute (3) Demand ischemia of myocardium Code(s): I24.8 - OTHER FORMS OF ACUTE ISCHEMIC HEART DISEASE Status: Acute (4) Ischemia, bowel Code(s): K55.9 - VASCULAR DISORDER OF INTESTINE, UNSPECIFIED Status: Acute (5) Lactic acidosis Code(s): E87.2 - ACIDOSIS Status: Acute (6) Transaminitis Code(s): R74.0 - NONSPEC ELEV OF LEVELS OF TRANSAMNS & LACTIC ACID DEHYDRGNSE Status: Acute (7) Anxiety and depression Code(s): F41.9 - ANXIETY DISORDER, UNSPECIFIED; F32.9 - MAJOR DEPRESSIVE DISORDER, SINGLE EPISODE, UNSPECIFIED Status: Chronic (8) Arthritis, rheumatoid Code(s): M06.9 - RHEUMATOID ARTHRITIS, UNSPECIFIED Status: Chronic (9) CAD (coronary artery disease) Code(s): I25.10 - ATHSCL HEART DISEASE OF [place] CORONARY ARTERY W/O ANG PCTRS Status: Chronic (10) COPD (chronic obstructive pulmonary disease) Status: Chronic (11) Dyslipidemia Code(s): E78.5 - HYPERLIPIDEMIA, UNSPECIFIED Status: Chronic (12) GERD (gastroesophageal reflux disease) Code(s): K21.9 - GASTRO-ESOPHAGEAL REFLUX DISEASE WITHOUT ESOPHAGITIS Status: Chronic (13) Gout Code(s): M10.9 - GOUT, UNSPECIFIED Status: Chronic (14) Hypertension Code(s): I10 - ESSENTIAL (PRIMARY) HYPERTENSION Status: Chronic (15) Moderate aortic stenosis Code(s): I35.0 - NONRHEUMATIC AORTIC (VALVE) STENOSIS Status: Chronic (16) Hypomagnesemia Code(s): E83.42 - HYPOMAGNESEMIA Status: Acute (17) Jejunostomy tube present Code(s): Z93.4 - OTHER ARTIFICIAL OPENINGS OF GASTROINTESTINAL TRACT STATUS Status: Acute (18) Perforated duodenal ulcer Code(s): K26.5 - CHRONIC OR UNSPECIFIED DUODENAL ULCER WITH PERFORATION Status : Acute (19) Respiratory insufficiency Code(s): R06.89 - OTHER ABNORMALITIES OF BREATHING Status: Acute (20) S/P exploratory laparotomy Status: Acute (21) S/P small bowel resection Code(s): Z90.49 - ACQUIRED ABSENCE OF OTHER SPECIFIED PARTS OF DIGESTIVE TRACT Status: Acute (22) Small bowel obstruction due to adhesions Code(s): K56.50 - INTESTNL ADHESIONS, UNSP TO PARTIAL VERSUS COMPLETE OBST Status: Acute (23) Status post jejunostomy Code(s): Z93.4 - OTHER ARTIFICIAL OPENINGS OF GASTROINTESTINAL TRACT STATUS Status: Acute (24) Anemia due to acute blood loss Code(s): D62 - ACUTE POSTHEMORRHAGIC ANEMIA Status: Acute (25) Thrombocytopenia Code(s): D69.6 - THROMBOCYTOPENIA, UNSPECIFIED Status: Acute - Plan cont current plan of care, continue antibiotics, incentive spirometry, DVT proph w/SCDs * continue J-tube feeding * replace magnesium * transfuse 1 unit PRBC * monitor labs * post operative care as per surgeon * medication reviewed as below * symptomatic treatment. * continue BAB[employer] REG[employer] SALES CONSULTANT for pain control * continue meropenam Review of Systems - Review of Systems ENT: negative: Ear Pain, Ear Discharge, Nose Pain, Nose Discharge, Nose Congestion, Mouth Pain, Mouth Swelling, Throat Pain, Throat Swelling, Other Respiratory: negative: Cough, Dry, Shortness of Breath, Hemoptysis, SOB with Excertion, Pleuritic Pain, Sputum, Wheezing Cardiovascular: negative: chest pain, palpitations, orthopnea, paroxysmal nocturnal dyspnea, edema, light headedness, other Gastrointestinal: negative: Nausea, Vomiting, Abdominal Pain, Diarrhea, Constipation, Melena, Hematochezia, Other Genitourinary: negative: Dysuria, Frequency, Incontinence, Hematuria, Retention , Other Musculoskeletal: negative: Neck Pain, Shoulder Pain, Arm Pain, Back Pain, Hand Pain, Leg Pain, Foot Pain, Other - Medications/Allergies Allergies/Adverse Reactions: Allergies Allergy/AdvReac Type Severity Reaction Status Date / Time latex Allergy Rash Verified 04/12/17 01:00 neomycin Allergy Hives Verified 04/12/17 01:00 Oltnndg-Rnk-Xmi Reductase Allergy Verified 04/14/17 07:53 Inhibitor Medications: Current Medications Albuterol/Ipratropium (Duoneb) 3 ml NEB [id number] GABY Last Admin: 04/14/17 07:20 Dose: 3 ml Diphenhydramine HCl (Benadryl) 25 mg IM/IV Q3H PRN PRN Reason: Itching Diphenhydramine HCl (Benadryl) 25 mg PO Q3H PRN PRN Reason: Itching Hydromorphone HCl (Dilaudid Cadd) 0 mg IVPB INF PRN PRN Reason: Pain Last Admin: 04/13/17 10:57 Dose: 10 mg Dextrose/Sodium Chloride (D5 1/2 Ns) 1,000 mls @ 100 mls/hr IV .Q10H [facility] Last Admin: 04/14/17 05:23 Dose: 1,000 mls Meropenem 1 gm/ Device 50 mls @ 100 mls/hr IVPB Q8HR [facility] Last Admin: 04/14/17 05:23 Dose: 50 mls Meropenem 1 gm/ Sterile Water 20 mls @ 240 mls/hr IVPB Q8HR GABY Mometasone Furoate/Formoterol Fumar (Dulera 200 Mcg/5 Mcg Inhaler) 2 puff INH BID-RT [facility] Last Admin: 04/14/17 07:22 Dose: 2 puff Naloxone HCl (Narcan) 0.2 mg IV Q5MIN PRN PRN Reason: Opiate Reversal Ondansetron HCl (Zofran) 4 mg IVP Q6H PRN PRN Reason: Nausea/Vomiting Pantoprazole Sodium (Protonix) 40 mg IVP 0100,0900,1700 [facility] Last Admin: 04/14/17 08:12 Dose: 40 mg Promethazine HCl (Phenergan) 12.5 mg IM Q4H PRN PRN Reason: Nausea/Vomiting Sodium Chloride (Flush - Normal Saline) 10 ml IV 0100,0900,1700 [facility] Last Admin: 04/14/17 08:12 Dose: 10 ml Sodium Chloride (Flush - Normal Saline) 10 ml IVF PRN PRN PRN Reason: Saline Flush Zolpidem Tartrate (Ambien) 5 mg PO HSPRN PRN PRN Reason: Insomnia
--- NOTE | 2017-04-14 12:54 | PRG ---
DATE OF VISIT: 04/14/2017 SUBJECTIVE: Ms. Millan is postoperative day #3 status post exploratory laparotomy, repair of perforate d duodenal ulcer, extensive adhesiolysis, segmental bowel resection with primary anastomosis. The pa aura reports adequate pain control. She denies any flatus or bowel movement. OBJECTIVE: VITAL SIGNS: Today includes blood pressure 151/74, pulse 109, respiratory rate is 16, maximum temper ature in the last 24 hours is 99.4 degrees Fahrenheit. Oxygen saturation is 97% on room air. HEENT: Reveals normocephalic and atraumatic. Pupils are equal, round, and reactive to light and acc ommodation. HEART: Reveals regular rate with sinus tachycardia. No murmurs or gallops auscultated. CHEST: Clear to auscultation bilaterally. Breathing is regular and unlabored. ABDOMEN: Soft and nondistended. Bowel sounds in all four quadrants appear normoactive. Nasogastric tube return is 210 mL of bile-tinged fluid over the last 24 hours. Left Jose Juan-Barba drain 190 mL, right drain 120 mL, both serous within the last 24 hours. Urinary output has been adequate. PERTINENT LABORATORY FINDINGS: Today includes CBC with 7200 white blood cells, hemoglobin 6.8, hemat ocrit is 21.1, platelet count is 79,000. Metabolic profile: Sodium 137, potassium is 4.2, chloride is 108, bicarbonate 24, BUN 38, creatinine is 1.06, glucose 115, magnesium 1.5, phosphorus is 3.2. ASSESSMENT AND PLAN: 1. Postoperative day #3 status post exploratory laparotomy with oversew of perforated duodenal ulcer . 2. Acute blood loss anemia. 3. Acute hypomagnesemia. PLAN: 1. Correct abnormal electrolytes. 2. The patient will be transfused with a unit of packed red blood cells. 3. Increase activity per physical and occupational therapy. 4. Continue trophic tube feeds until return of bowel function. Above findings and plan discussed with the patient who indicates understanding of the information giv en. I have answered her questions.
[2017-04-14] MEDS: Meropenem 1 GM in Sterile Water 20 ML IVPB SCH ×2 (14:03→21:18)
--- NOTE | 2017-04-14 15:34 | PQF ---
CLINICAL DOCUMENTATION IMPROVEMENT CLARIFICATION FORM: ICD-10 Updated PLEASE DO AN ADDENDUM TO THE PROGRESS NOTE WITH ANY DOCUMENTATION UPDATES OR ADDITIONS AND CARRY THROUGH TO DC SUMMARY. THANK YOU. DATE: 04/14/17 ATTN: Dr. Baird Please exercise your independent, professional judgment in responding to the clarification form. Clinical indicators are provided on the bottom of this form for your review Please check appropriate box(s): [ ] Sepsis due to: (Pna, UTI, gangrenous gall bladder, etc.) [ x] Severe sepsis with acute organ dysfunction of: (Examples: respiratory failure, encephalopathy, acute kidney failure, other ) [ ] Localized infection without sepsis [ ] Other diagnosis [ ] Unable to determine In addition, please specify: Present on Admission (POA): [x ] Yes [ ] No [ ] Unable to determine For continuity of documentation, please document condition throughout progress notes and discharge summary. Thank You. CLINICAL INDICATORS - SIGNS / SYMPTOMS / LABS ED REPORT: BP 101/77, PULSE 126, RESP 22 H&P: LACTATE 4.6 PULMONOLOGY PN 04/13: ABDOMINAL SEPSIS RISKS: H&P: HIGH LACTIC ACID & ELEVATED WHITE COUNT. ACUTE RENAL FAILURE ON CKD. HX OF STEROID INDUCED MYOPATHY, CAD. HTN. OP REPORT 04/12: PERFORATED FOURTH DUODENAL ULCER. TREATMENT: ORDER 04/14: MEROPENEM 1 GM IV Q 8 HR OP REPORT 04/11: OVERSEW OF FOURTH PORTION OF DUODENAL ULCER W/ CYDNEY PATCH. Thank you, Angelita (This form is maintained as a part of the permanent medical record) 2015 [employer]. All Rights Reserved Angelita Mccrary RN, BSN [email or web address] Office: [phone] [facility]
--- NOTE | 2017-04-14 18:34 | PRG ---
DATE OF SERVICE: 04/14/2017 SUBJECTIVE: Valarie Millan this morning, she is better, less pain, less shortness of breath. OBJECTIVE: VITAL SIGNS: Sats 96% on room air, temperature 98, blood pressure 151/74. CHEST: Decreased breath sounds without any wheezing. CARDIAC: Normal S1 and S2. No gallops. LABORATORY DATA: Electrolytes are normal. White count 7, hemoglobin and hematocrit is [address] atelet count is low at 79,000. IMPRESSION: 1. Thrombocytopenia. 2. Anemia. 3. Chronic obstructive pulmonary disease. 4. Status post lap. PLAN: She will benefit from 2 units of packed cells. Otherwise continue neb treatments, supportive care. We will follow.
[2017-04-15 01:25] LABS: Hemoglobin 8.6 g/dL (12.0-16.0)
[2017-04-15] MEDS: Pantoprazole 40 MG VIAL IVP SCH ×3 (01:43→19:22)
[2017-04-15] MEDS: Dextrose 5 %-0.45 % NaCl 1,000 ML IV SCH (01:44)
[2017-04-15] MEDS: Meropenem 1 GM in Sterile Water 20 ML IVPB SCH ×3 (05:48→21:27)
[2017-04-15] MEDS: Mometasone/Formoterol 120 PUFF INHALER INH SCH ×2 (06:45→20:07)
[2017-04-15] MEDS ORDERED: traMADol HCl 50 MG TAB PO PRN (08:23)
[2017-04-15 08:46] LABS: #Monocytes 0.2 thou/uL (0.11-0.59); #Neutrophils 6.5 thou/uL (1.40-6.50); %Basophils 0.1 % (0.0-1.0); %Eosinophils 0.4 % (0.0-10.0); %Lymphocytes 13.1 % (21.0-51.0); %Neutrophils 83.3 % (42.0-75.0); Hemoglobin 8.7 g/dL (12.0-16.0); Mean Corpuscular HGB CONC 31.7 g/dL (32.0-36.0); Mean Corpuscular Hemoglobin 30.4 pg (27.0-31.0); Mean Corpuscular Volume 95.9 fl (81.0-99.0); Mean Platelet Volume 9.5 fL (7.4-10.4); Platelet Count 96 thou/uL (130-400); RBC Distribution Width 16.2 % (11.5-14.5); Red Blood Cell (RBC) Count 2.87 mill/uL (4.20-5.40); White Blood Cell (WBC) Count 7.7 thou/uL (4.8-10.8)
[2017-04-15 09:13] LABS: ALT (SGPT) 69 U/L (8-55); AST (SGOT) 133 U/L (5-34); Albumin 2.3 g/dL (3.4-4.8); Alkaline Phosphatase 45 U/L (40-150); Anion Gap 9 mmol/L (10-20); BUN (Urea Nitrogen) 31 mg/dL (9.8-20.1); Bilirubin, Total 0.4 mg/dL (0.2-1.2); Calc. Creatinine Clearance 61 mL/min (70-130); Calcium 8.3 mg/dL (7.8-10.44); Carbon Dioxide 26 mmol/L (23-31); Chloride 105 mmol/L (98-107); Estimated GFR-MDRD 54; Globulin 2.7 g/dL (2.4-3.5); Glucose 120 mg/dL (83-110); Potassium 4.3 mmol/L (3.5-5.1); Sodium 136 mmol/L (136-145)
[2017-04-15] MEDS: Acetaminophen 500 MG TAB PO SCH ×3 (10:37→20:28)
--- NOTE | 2017-04-15 11:07 | PRG ---
DATE OF SERVICE: 04/15/2017 SUBJECTIVE: Ms. Millan is postoperative day #3 status post exploratory laparotomy with oversew of perf orated duodenal ulcer, extensive adhesiolysis, segmental small bowel resection with primary anastomos is. She reports adequate pain control today. She has an indwelling Hancock catheter, which returns ad equate urinary output. The patient denies any flatus or bowel movement. She has no nausea or vomiti ng. The indwelling nasogastric tube has returned 125 mL of slightly bile-tinged fluid over the last 24 ho urs. OBJECTIVE: VITAL SIGNS: Current vital sign includes blood pressure 109/70, pulse 103, respiratory rate 16, temp erature is 97.7 degrees Fahrenheit, oxygen saturation is 99% on 2 liters by nasal cannula oxygen. HEENT: Reveals normocephalic and atraumatic. Pupils are equal, round, and reactive to light and acc ommodation. Extraocular muscles are intact bilaterally. She has no sclerae icterus is present. Ora l mucosa is pink and moist. No lesions are noted. HEART: Reveals regular rate and rhythm. No murmurs or gallops auscultated. CHEST: Lungs clear to auscultation bilaterally. Her breathing is regular and unlabored. ABDOMEN: Soft and nondistended. Incision remains intact, clean, and dry. Two Jose Juan-Barba drain r emains in place returning 90 and 85 mL of serous fluid respectively. NEUROLOGIC: Reveals no focal deficits present. PERTINENT LABORATORY FINDINGS: Today includes CBC with a stable white blood cell count 7700, hemoglo bin and hematocrit stable at 8.7 and 27.5 respectively. Platelet count 96,000. Metabolic profile: Sodium 136, potassium 4.3, chloride is 105, bicarbonate 26, BUN 31, creatinine is 1.0, glucose 120, m agnesium is 2.0. AST and ALT noted at 133 and 69 respectively. IMPRESSION: 1. Postoperative day #3 status post exploratory laparotomy. The patient is hemodynamically stable. 2. Stable acute blood loss anemia. PLAN: 1. The patient will be saline locked. 2. We will increase tube feeds to 20 mL per hour. 3. Nasogastric tube was discontinued and the patient may start to take ice chips, popsicles, and nelsy d candy. 4. We will increase activity per physical and occupational therapy. The patient has been evaluated by PM&R for possible inpatient rehabilitation upon discharge. Above findings and plan has been discussed with the patient and also with her daughter via telephone conversation. They both indicated understanding of information given. I answered their questions.
--- NOTE | 2017-04-15 11:49 | PDOC.PN ---
- Subjective Encounter Start Date: 04/15/17 Encounter Start Time: 07:45 pt's pain controlled with TYPING BOOKKEEPER, on tube feeding, did not have BM yet - Objective MAR Reviewed: Yes Vital Signs & Weight: Vital Signs (12 hours) Temp Pulse Resp BP Pulse Ox 04/15/17 11:43 93 16 99 04/15/17 07:27 97.7 F 103 H 16 109/70 99 04/15/17 06:45 99 16 100 04/15/17 06:43 99 16 100 04/15/17 04:29 97.7 F 111 H 17 140/77 97 04/15/17 01:16 113 H 20 99 04/15/17 00:02 97.9 F 117 H 18 113/68 96 Weight Admit Weight 178 lb Weight 178 lb 3.2 oz Most Recent Monitor Data Heart Rate from ECG 104 NIBP 136/77 NIBP BP-Mean 78 Respiration from ECG 17 SpO2 95 I&O: 04/14/17 04/15/17 04/16/17 06:59 06:59 06:59 Intake Total 3254 3040 Output Total 1520 2500 Balance 1734 540 Result Diagrams: 04/15/17 08:05 04/15/17 08:05 Phys Exam - Physical Examination Constitutional: NAD HEENT: PERRLA, moist MMs, sclera anicteric NG tube with LIS Neck: no JVD, supple Respiratory: no wheezing, no rales, no rhonchi central line+ Cardiovascular: RRR, no significant murmur, no rub Gastrointestinal: soft surgical site with wound vac, 2 SAMIR drain+, J-tube+, hill+ Musculoskeletal: no edema, pulses present scd+ Neurological: non-focal, normal sensation Lymphatic: no nodes Psychiatric: normal affect, A&O x 3 Skin: no rash, normal turgor Dx/Plan (1) Acute abdominal pain Code(s): R10.9 - UNSPECIFIED ABDOMINAL PAIN Status: Resolved (2) Acute kidney failure Status: Resolved (3) Demand ischemia of myocardium Code(s): I24.8 - OTHER FORMS OF ACUTE ISCHEMIC HEART DISEASE Status: Acute (4) Ischemia, bowel Code(s): K55.9 - VASCULAR DISORDER OF INTESTINE, UNSPECIFIED Status: Acute (5) Lactic acidosis Code(s): E87.2 - ACIDOSIS Status: Resolved (6) Transaminitis Code(s): R74.0 - NONSPEC ELEV OF LEVELS OF TRANSAMNS & LACTIC ACID DEHYDRGNSE Status: Acute (7) Anxiety and depression Code(s): F41.9 - ANXIETY DISORDER, UNSPECIFIED; F32.9 - MAJOR DEPRESSIVE DISORDER, SINGLE EPISODE, UNSPECIFIED Status: Chronic (8) Arthritis, rheumatoid Code(s): M06.9 - RHEUMATOID ARTHRITIS, UNSPECIFIED Status: Chronic (9) CAD (coronary artery disease) Code(s): I25.10 - ATHSCL HEART DISEASE OF [place] CORONARY ARTERY W/O ANG PCTRS Status: Chronic (10) COPD (chronic obstructive pulmonary disease) Status: Chronic (11) Dyslipidemia Code(s): E78.5 - HYPERLIPIDEMIA, UNSPECIFIED Status: Chronic (12) GERD (gastroesophageal reflux disease) Code(s): K21.9 - GASTRO-ESOPHAGEAL REFLUX DISEASE WITHOUT ESOPHAGITIS Status: Chronic (13) Gout Code(s): M10.9 - GOUT, UNSPECIFIED Status: Chronic (14) Hypertension Code(s): I10 - ESSENTIAL (PRIMARY) HYPERTENSION Status: Chronic (15) Moderate aortic stenosis Code(s): I35.0 - NONRHEUMATIC AORTIC (VALVE) STENOSIS Status: Chronic (16) Hypomagnesemia Code(s): E83.42 - HYPOMAGNESEMIA Status: Resolved (17) Jejunostomy tube present Code(s): Z93.4 - OTHER ARTIFICIAL OPENINGS OF GASTROINTESTINAL TRACT STATUS Status: Acute (18) Perforated duodenal ulcer Code(s): K26.5 - CHRONIC OR UNSPECIFIED DUODENAL ULCER WITH PERFORATION Status : Acute Comment: s/p surgical repair (19) Respiratory insufficiency Code(s): R06.89 - OTHER ABNORMALITIES OF BREATHING Status: Acute (20) S/P exploratory laparotomy Status: Acute (21) S/P small bowel resection Code(s): Z90.49 - ACQUIRED ABSENCE OF OTHER SPECIFIED PARTS OF DIGESTIVE TRACT Status: Acute (22) Small bowel obstruction due to adhesions Code(s): K56.50 - INTESTNL ADHESIONS, UNSP TO PARTIAL VERSUS COMPLETE OBST Status: Acute (23) Status post jejunostomy Code(s): Z93.4 - OTHER ARTIFICIAL OPENINGS OF GASTROINTESTINAL TRACT STATUS Status: Acute (24) Anemia due to acute blood loss Code(s): D62 - ACUTE POSTHEMORRHAGIC ANEMIA Status: Acute (25) Thrombocytopenia Code(s): D69.6 - THROMBOCYTOPENIA, UNSPECIFIED Status: Acute - Plan cont current plan of care, hill catheter, continue antibiotics, PT/OT, incentive spirometry * continue post operative care as per surgeon * on TYPING BOOKKEEPER, J-tube feeding * labs are OK today * medication reviewed as below * symptomatic treatment * wound care. Review of Systems - Review of Systems ENT: negative: Ear Pain, Ear Discharge, Nose Pain, Nose Discharge, Nose Congestion, Mouth Pain, Mouth Swelling, Throat Pain, Throat Swelling, Other Respiratory: negative: Cough, Dry, Shortness of Breath, Hemoptysis, SOB with Excertion, Pleuritic Pain, Sputum, Wheezing Cardiovascular: negative: chest pain, palpitations, orthopnea, paroxysmal nocturnal dyspnea, edema, light headedness, other Gastrointestinal: negative: Nausea, Vomiting, Abdominal Pain, Diarrhea, Constipation, Melena, Hematochezia, Other Genitourinary: negative: Dysuria, Frequency, Incontinence, Hematuria, Retention , Other Musculoskeletal: negative: Neck Pain, Shoulder Pain, Arm Pain, Back Pain, Hand Pain, Leg Pain, Foot Pain, Other - Medications/Allergies Allergies/Adverse Reactions: Allergies Allergy/AdvReac Type Severity Reaction Status Date / Time latex Allergy Rash Verified 04/12/17 01:00 neomycin Allergy Hives Verified 04/12/17 01:00 Jjwzsgd-Caj-Wll Reductase Allergy Verified 04/14/17 07:53 Inhibitor Medications: Current Medications Acetaminophen (Tylenol) 1,000 mg PO 0300,0900,1500,2100 [facility] Last Admin: 04/15/17 10:37 Dose: 1,000 mg Albuterol/Ipratropium (Duoneb) 3 ml NEB [id number] [facility] Last Admin: 04/15/17 11:43 Dose: 3 ml Ascorbic Acid (Vitamin C) 500 mg PO BID [facility] Diphenhydramine HCl (Benadryl) 25 mg IM/IV Q3H PRN PRN Reason: Itching Diphenhydramine HCl (Benadryl) 25 mg PO Q3H PRN PRN Reason: Itching Enoxaparin Sodium (Lovenox) 40 mg SC 2100 [facility] Ferrous Sulfate (Feosol) 325 mg PO BID-[facility] Meropenem 1 gm/ Sterile Water 20 mls @ 240 mls/hr IVPB Q8HR [facility] Last Admin: 04/15/17 05:48 Dose: 20 mls Mometasone Furoate/Formoterol Fumar (Dulera 200 Mcg/5 Mcg Inhaler) 2 puff INH BID-RT [facility] Last Admin: 04/15/17 06:45 Dose: 2 puff Naloxone HCl (Narcan) 0.2 mg IV Q5MIN PRN PRN Reason: Opiate Reversal Ondansetron HCl (Zofran) 4 mg IVP Q6H PRN PRN Reason: Nausea/Vomiting Pantoprazole Sodium (Protonix) 40 mg IVP 0100,0900,1700 [facility] Last Admin: 04/15/17 10:37 Dose: 40 mg Promethazine HCl (Phenergan) 12.5 mg IM Q4H PRN PRN Reason: Nausea/Vomiting Sodium Chloride (Flush - Normal Saline) 10 ml IV 0100,0900,1700 [facility] Last Admin: 04/15/17 01:44 Dose: 10 ml Sodium Chloride (Flush - Normal Saline) 10 ml IVF PRN PRN PRN Reason: Saline Flush Tramadol HCl (Ultram) 50 mg PO Q6H PRN PRN Reason: Pain Zolpidem Tartrate (Ambien) 5 mg PO HSPRN PRN PRN Reason: Insomnia
--- NOTE | 2017-04-15 12:46 | PRG ---
DATE OF SERVICE: 04/15/2017 SUBJECTIVE: She is feeling better. She is glad that she is off morphine. PHYSICAL EXAMINATION: VITAL SIGNS: Temperature 97.7, pulse 93, respiration rate 16, O2 sat 99% on 2 liters. HEENT: Unremarkable. NECK: No JVD. LUNGS: Clear without wheezing. CARDIAC: S1 and S2 regular. ABDOMEN: Soft. EXTREMITIES: No edema. LABORATORY DATA: White blood cell count 7.7, hematocrit 27.5, platelet count 96. Sodium 136, potass ium 4.3, chloride 105, CO2 26, BUN 31, creatinine 1.0, glucose 120. ASSESSMENT: 1. Chronic obstructive pulmonary disease which seems to be under control with nebulization treatment s. 2. Postoperative from intestine surgery. PLAN: Continue nebulization treatments. We will be available as needed.
[2017-04-15] MEDS: Ferrous Sulfate 325 MG TAB PO SCH (19:23)
[2017-04-15] MEDS: Ascorbic Acid 500 mg Chewable Tablet PO SCH (20:29)
[2017-04-15] MEDS: Enoxaparin Sodium 40 MG/0.4 ML SYRINGE SC SCH (21:27)
[2017-04-15] MEDS: Sodium Chloride 0.9% 1,000 ML IV SCH (22:30)
[2017-04-16] MEDS: Pantoprazole 40 MG VIAL IVP SCH ×3 (00:44→17:21)
[2017-04-16] MEDS: Acetaminophen 500 MG TAB PO SCH ×4 (02:23→18:24)
[2017-04-16] MEDS: Meropenem 1 GM in Sterile Water 20 ML IVPB SCH ×3 (05:55→23:48)
[2017-04-16] MEDS: Mometasone/Formoterol 120 PUFF INHALER INH SCH ×2 (07:42→18:53)
--- NOTE | 2017-04-16 11:14 | PDOC.PN ---
- Subjective Encounter Start Date: 04/16/17 Encounter Start Time: 08:10 pt is anxious, asking for anxiety meds, daughter bedside, NG removed, does not have BM but she feels sound Patient seen and examined. No overnight events - Objective MAR Reviewed: Yes Vital Signs & Weight: Vital Signs (12 hours) Temp Pulse Resp BP BP Pulse Ox 04/16/17 08:33 98.7 F 99 20 153/80 H 98 04/16/17 07:42 100 16 97 04/16/17 04:28 97.7 F 98 14 144/72 H 96 04/16/17 00:45 98 04/16/17 00:00 97.9 F 99 16 136/78 97 Weight Admit Weight 178 lb Weight 178 lb 3.2 oz Most Recent Monitor Data Heart Rate from ECG 104 NIBP 136/77 NIBP BP-Mean 78 Respiration from ECG 17 SpO2 95 I&O: 04/15/17 04/16/17 04/17/17 06:59 06:59 06:59 Intake Total 3040 900 Output Total 2500 725 Balance 540 175 Result Diagrams: 04/15/17 08:05 04/15/17 08:05 Phys Exam - Physical Examination Constitutional: NAD HEENT: PERRLA, moist MMs, sclera anicteric Neck: no JVD, supple Respiratory: no wheezing, no rales, no rhonchi Cardiovascular: RRR, no rub SM+ Gastrointestinal: soft, no distention, positive bowel sounds surgical site with small wound vac, [address], J-tube+ Musculoskeletal: no edema, pulses present Neurological: non-focal, normal sensation, moves all 4 limbs Lymphatic: no nodes Psychiatric: normal affect Skin: no rash, normal turgor Dx/Plan (1) Acute abdominal pain Code(s): R10.9 - UNSPECIFIED ABDOMINAL PAIN Status: Resolved (2) Acute kidney failure Status: Resolved (3) Demand ischemia of myocardium Code(s): I24.8 - OTHER FORMS OF ACUTE ISCHEMIC HEART DISEASE Status: Acute (4) Ischemia, bowel Code(s): K55.9 - VASCULAR DISORDER OF INTESTINE, UNSPECIFIED Status: Acute (5) Lactic acidosis Code(s): E87.2 - ACIDOSIS Status: Resolved (6) Transaminitis Code(s): R74.0 - NONSPEC ELEV OF LEVELS OF TRANSAMNS & LACTIC ACID DEHYDRGNSE Status: Acute (7) Anxiety and depression Code(s): F41.9 - ANXIETY DISORDER, UNSPECIFIED; F32.9 - MAJOR DEPRESSIVE DISORDER, SINGLE EPISODE, UNSPECIFIED Status: Chronic (8) Arthritis, rheumatoid Code(s): M06.9 - RHEUMATOID ARTHRITIS, UNSPECIFIED Status: Chronic (9) CAD (coronary artery disease) Code(s): I25.10 - ATHSCL HEART DISEASE OF [place] CORONARY ARTERY W/O ANG PCTRS Status: Chronic (10) COPD (chronic obstructive pulmonary disease) Status: Chronic (11) Dyslipidemia Code(s): E78.5 - HYPERLIPIDEMIA, UNSPECIFIED Status: Chronic (12) GERD (gastroesophageal reflux disease) Code(s): K21.9 - GASTRO-ESOPHAGEAL REFLUX DISEASE WITHOUT ESOPHAGITIS Status: Chronic (13) Gout Code(s): M10.9 - GOUT, UNSPECIFIED Status: Chronic (14) Hypertension Code(s): I10 - ESSENTIAL (PRIMARY) HYPERTENSION Status: Chronic (15) Moderate aortic stenosis Code(s): I35.0 - NONRHEUMATIC AORTIC (VALVE) STENOSIS Status: Chronic (16) Hypomagnesemia Code(s): E83.42 - HYPOMAGNESEMIA Status: Resolved (17) Jejunostomy tube present Code(s): Z93.4 - OTHER ARTIFICIAL OPENINGS OF GASTROINTESTINAL TRACT STATUS Status: Acute (18) Perforated duodenal ulcer Code(s): K26.5 - CHRONIC OR UNSPECIFIED DUODENAL ULCER WITH PERFORATION Status : Acute Comment: s/p surgical repair (19) Respiratory insufficiency Code(s): R06.89 - OTHER ABNORMALITIES OF BREATHING Status: Acute (20) S/P exploratory laparotomy Status: Acute (21) S/P small bowel resection Code(s): Z90.49 - ACQUIRED ABSENCE OF OTHER SPECIFIED PARTS OF DIGESTIVE TRACT Status: Acute (22) Small bowel obstruction due to adhesions Code(s): K56.50 - INTESTNL ADHESIONS, UNSP TO PARTIAL VERSUS COMPLETE OBST Status: Acute (23) Status post jejunostomy Code(s): Z93.4 - OTHER ARTIFICIAL OPENINGS OF GASTROINTESTINAL TRACT STATUS Status: Acute (24) Anemia due to acute blood loss Code(s): D62 - ACUTE POSTHEMORRHAGIC ANEMIA Status: Acute (25) Thrombocytopenia Code(s): D69.6 - THROMBOCYTOPENIA, UNSPECIFIED Status: Acute - Plan cont current plan of care, plan discussed w/ family, continue antibiotics * continue meropenam * J-tube feeding * will add xanax and lexapro * APPLICATION COORDINATOR is off, pt does not like narcotics, continue IV tyelnol as needed * ambulate as tolerated * pt is slowly recovering * medication reviewed as below * symptomatic treatment. Review of Systems - Review of Systems ENT: negative: Ear Pain, Ear Discharge, Nose Pain, Nose Discharge, Nose Congestion, Mouth Pain, Mouth Swelling, Throat Pain, Throat Swelling, Other Respiratory: negative: Cough, Dry, Shortness of Breath, Hemoptysis, SOB with Excertion, Pleuritic Pain, Sputum, Wheezing Cardiovascular: negative: chest pain, palpitations, orthopnea, paroxysmal nocturnal dyspnea, edema, light headedness, other Gastrointestinal: negative: Nausea, Vomiting, Abdominal Pain, Diarrhea, Constipation, Melena, Hematochezia, Other Genitourinary: negative: Dysuria, Frequency, Incontinence, Hematuria, Retention , Other Musculoskeletal: negative: Neck Pain, Shoulder Pain, Arm Pain, Back Pain, Hand Pain, Leg Pain, Foot Pain, Other - Medications/Allergies Allergies/Adverse Reactions: Allergies Allergy/AdvReac Type Severity Reaction Status Date / Time latex Allergy Rash Verified 04/12/17 01:00 neomycin Allergy Hives Verified 04/12/17 01:00 Kacfurc-Jdf-Klc Reductase Allergy Verified 04/14/17 07:53 Inhibitor Medications: Current Medications Albuterol/Ipratropium (Duoneb) 3 ml NEB [id number] [facility] Last Admin: 04/16/17 07:42 Dose: 3 ml Alprazolam (Xanax) 0.25 mg PO TIDPRN PRN PRN Reason: Anxiety Ascorbic Acid (Vitamin C) 500 mg PO BID [facility] Last Admin: 04/15/17 20:29 Dose: Not Given Enoxaparin Sodium (Lovenox) 40 mg SC 2100 [facility] Last Admin: 04/15/17 21:27 Dose: Not Given Escitalopram Oxalate (Lexapro) 10 mg PO DAILY [facility] Ferrous Sulfate (Feosol) 325 mg PO BID-[facility] Last Admin: 04/15/17 19:23 Dose: 325 mg Meropenem 1 gm/ Sterile Water 20 mls @ 240 mls/hr IVPB Q8HR [facility] Last Admin: 04/16/17 05:55 Dose: 20 mls Sodium Chloride (Normal Saline 0.9%) 1,000 mls @ 50 mls/hr IV .Q20H [facility] Last Admin: 04/15/17 22:30 Dose: 1,000 mls Acetaminophen 1,000 mg/ Device 100 mls @ 400 mls/hr IVPB Q6HR [facility] Stop: 04/17/17 12:01 Levothyroxine Sodium (Synthroid) 25 mcg PO 0600 [facility] Metoprolol Succinate (Toprol Xl) 12.5 mg PO DAILY [facility] Mometasone Furoate/Formoterol Fumar (Dulera 200 Mcg/5 Mcg Inhaler) 2 puff INH BID-RT [facility] Last Admin: 04/16/17 07:42 Dose: 2 puff Naloxone HCl (Narcan) 0.2 mg IV Q5MIN PRN PRN Reason: Opiate Reversal Pantoprazole Sodium (Protonix) 40 mg IVP 0100,0900,1700 [facility] Last Admin: 04/16/17 00:44 Dose: 40 mg Promethazine HCl (Phenergan) 12.5 mg IM Q4H PRN PRN Reason: Nausea/Vomiting Sodium Chloride (Flush - Normal Saline) 10 ml IV 0100,0900,1700 [facility] Last Admin: 04/16/17 00:48 Dose: 10 ml Sodium Chloride (Flush - Normal Saline) 10 ml IVF PRN PRN PRN Reason: Saline Flush Tramadol HCl (Ultram) 50 mg PO Q6H PRN PRN Reason: Pain Last Admin: 04/16/17 05:54 Dose: 50 mg Zolpidem Tartrate (Ambien) 5 mg PO HSPRN PRN PRN Reason: Insomnia
[2017-04-16] MEDS ORDERED: traMADol HCl 50 MG TAB PO PRN (11:25)
[2017-04-16] MEDS: Ferrous Sulfate 325 MG TAB PO SCH ×2 (11:50→17:21)
[2017-04-16] MEDS: traMADol HCl 50 MG TAB PO SCH ×2 (11:51→17:21)
[2017-04-16] MEDS: Ascorbic Acid 500 mg Chewable Tablet PO SCH ×2 (11:52→21:09)
[2017-04-16] MEDS: ALPRAZolam 0.25 MG TAB PO PRN ×2 (11:52→21:09)
[2017-04-16] MEDS ORDERED: Acetaminophen 1,000 MG in Premix Bag 1 BAG IVPB SCH (12:00)
[2017-04-16] MEDS ORDERED: Levothyroxine Sodium 25 MCG TAB PO SCH (13:30)
[2017-04-16] MEDS ORDERED: Escitalopram Oxalate 10 mg Tablet PO SCH (13:30)
--- NOTE | 2017-04-16 13:53 | PRG ---
DATE OF SERVICE: 04/16/2017 SUBJECTIVE: Ms. Millan is a 76-year-old woman who is 4 days status post exploratory laparotomy, overse w of perforated duodenal ulcer, segmental small bowel resection with primary anastomosis. The patien t is awake and alert today. She reports adequate pain control. She denies any flatus or bowel movem ent. She also denies any nausea. She was placed on ice chips and popsicle by mouth. She denies any fevers or chills. OBJECTIVE: VITAL SIGNS: This morning includes blood pressure 149/80, pulse is 104, respiratory rate is 18, temp erature 98.7 degrees Fahrenheit, oxygen saturation is 96% on room air. HEENT: Examination reveals normocephalic and atraumatic. Pupils are equal, round, and reactive to l ight and accommodation. She has no jugular venous distention noted. HEART: Reveals regular rate with mild sinus tachycardia, no murmurs or gallops auscultated. CHEST: Clear to auscultation bilaterally. Her breathing is regular and unlabored. ABDOMEN: Soft and nondistended. Incisions remain intact, clean, and dry. Jose Juan-Barba drain retur ns serous fluid. Bowel sounds in all 4 quadrants are normoactive. Liver and spleen remained nonpalp able below costal margins. NEUROLOGIC: Examination reveals no focal deficits present. LABORATORY DATA: Urine output has been marginal. IMPRESSION: 1. Postoperative day #4 status post exploratory laparotomy and oversew of perforated duodenal ulcer. The patient is hemodynamically stable. 2. Acute blood loss anemia, stable. 3. We will obtain laboratory studies today first to evaluate patient's renal function as well as mon itor serum hemoglobin for hemostasis. PLAN: 1. We will initiate clear liquid diet today. 2. Increase activity per physical and occupational therapy. 3. Gentle fluid resuscitation will be provided. 4. We will rule out acute congestive heart failure as the etiology of low urinary output which may w arrant diuresis. Above findings and plan have been discussed with the patient who indicates understanding of the infor mation given. I answered all of her questions.
[2017-04-16 13:58] LABS: #Eosinphils 0.1 thou/uL (0.0-0.7); #Lymphocytes 0.8 thou/uL (1.20-3.40); #Monocytes 0.2 thou/uL (0.11-0.59); #Neutrophils 5.8 thou/uL (1.40-6.50); %Basophils 0.1 % (0.0-1.0); %Eosinophils 0.8 % (0.0-10.0); %Lymphocytes 11.9 % (21.0-51.0); %Monocytes 3.1 % (0.0-10.0); Mean Corpuscular HGB CONC 32.4 g/dL (32.0-36.0); Mean Corpuscular Hemoglobin 30.8 pg (27.0-31.0); Mean Platelet Volume 9.7 fL (7.4-10.4); Platelet Count 105 thou/uL (130-400); RBC Distribution Width 16.2 % (11.5-14.5); Red Blood Cell (RBC) Count 2.93 mill/uL (4.20-5.40); White Blood Cell (WBC) Count 6.9 thou/uL (4.8-10.8)
[2017-04-16 14:17] LABS: Anion Gap 11 mmol/L (10-20); BUN (Urea Nitrogen) 31 mg/dL (9.8-20.1); Calc. Creatinine Clearance 69 mL/min (70-130); Calcium 7.8 mg/dL (7.8-10.44); Carbon Dioxide 23 mmol/L (23-31); Chloride 105 mmol/L (98-107); Estimated GFR-MDRD 62; Glucose 109 mg/dL (83-110); Magnesium 1.7 mg/dL (1.6-2.6); Phosphorus 3.1 mg/dL (2.3-4.7); Potassium 4.5 mmol/L (3.5-5.1); Sodium 134 mmol/L (136-145)
[2017-04-16] MEDS: Enoxaparin Sodium 40 MG/0.4 ML SYRINGE SC SCH (21:10)
[2017-04-17] MEDS: Sodium Bicarbonate Tab 325 MG TAB PER TUBE PRN ×3 (01:23→19:49)
[2017-04-17] MEDS: Pancrelipase DR 12000 1 CAP FS PRN ×3 (01:27→19:50)
[2017-04-17] MEDS: Acetaminophen 500 MG TAB PO SCH ×4 (01:31→18:03)
[2017-04-17] MEDS: traMADol HCl 50 MG TAB PO SCH ×4 (01:32→18:03)
[2017-04-17] MEDS: Pantoprazole 40 MG VIAL IVP SCH ×3 (01:33→22:28)
[2017-04-17] MEDS: Sodium Chloride 0.9% 1,000 ML IV SCH (02:33)
[2017-04-17] MEDS: Meropenem 1 GM in Sterile Water 20 ML IVPB SCH ×3 (06:57→22:20)
[2017-04-17] MEDS: Levothyroxine Sodium 25 MCG TAB PO SCH (06:58)
[2017-04-17] MEDS: Mometasone/Formoterol 120 PUFF INHALER INH SCH ×2 (07:55→19:20)
--- NOTE | 2017-04-17 10:02 | PDOC.PN ---
- Subjective Encounter Start Date: 04/17/17 Encounter Start Time: 07:40 Patient seen and examined. No new complaints. No overnight events today J-tube is clogged, no anxiety - Objective MAR Reviewed: Yes Vital Signs & Weight: Vital Signs (12 hours) Temp Pulse Resp BP Pulse Ox 04/17/17 07:53 87 14 94 L 04/17/17 07:30 97.9 F 86 14 133/74 94 L 04/17/17 00:02 87 12 04/17/17 00:00 98.3 F 93 14 149/74 H 93 L Weight Admit Weight 178 lb Weight 178 lb 3.2 oz Most Recent Monitor Data Heart Rate from ECG 104 NIBP 136/77 NIBP BP-Mean 78 Respiration from ECG 17 SpO2 95 I&O: 04/16/17 04/17/17 04/18/17 06:59 06:59 06:59 Intake Total 900 2140 Output Total 725 605 Balance 175 1535 Result Diagrams: 04/16/17 13:34 04/16/17 13:34 Phys Exam - Physical Examination Constitutional: NAD HEENT: PERRLA, moist MMs, sclera anicteric Neck: no JVD, supple Respiratory: no wheezing, no rales, no rhonchi Cardiovascular: RRR, no rub SM+ Gastrointestinal: soft, non-tender, no distention, positive bowel sounds surgical site with dressing, misty drain, j-tube, hill+ Musculoskeletal: no edema, pulses present Neurological: non-focal, normal sensation Psychiatric: normal affect, A&O x 3 Skin: no rash, normal turgor Dx/Plan (1) Acute abdominal pain Code(s): R10.9 - UNSPECIFIED ABDOMINAL PAIN Status: Resolved (2) Acute kidney failure Status: Resolved (3) Demand ischemia of myocardium Code(s): I24.8 - OTHER FORMS OF ACUTE ISCHEMIC HEART DISEASE Status: Acute (4) Ischemia, bowel Code(s): K55.9 - VASCULAR DISORDER OF INTESTINE, UNSPECIFIED Status: Acute (5) Lactic acidosis Code(s): E87.2 - ACIDOSIS Status: Resolved (6) Transaminitis Code(s): R74.0 - NONSPEC ELEV OF LEVELS OF TRANSAMNS & LACTIC ACID DEHYDRGNSE Status: Acute (7) Anxiety and depression Code(s): F41.9 - ANXIETY DISORDER, UNSPECIFIED; F32.9 - MAJOR DEPRESSIVE DISORDER, SINGLE EPISODE, UNSPECIFIED Status: Chronic (8) Arthritis, rheumatoid Code(s): M06.9 - RHEUMATOID ARTHRITIS, UNSPECIFIED Status: Chronic (9) CAD (coronary artery disease) Code(s): I25.10 - ATHSCL HEART DISEASE OF [place] CORONARY ARTERY W/O ANG PCTRS Status: Chronic (10) COPD (chronic obstructive pulmonary disease) Status: Chronic (11) Dyslipidemia Code(s): E78.5 - HYPERLIPIDEMIA, UNSPECIFIED Status: Chronic (12) GERD (gastroesophageal reflux disease) Code(s): K21.9 - GASTRO-ESOPHAGEAL REFLUX DISEASE WITHOUT ESOPHAGITIS Status: Chronic (13) Gout Code(s): M10.9 - GOUT, UNSPECIFIED Status: Chronic (14) Hypertension Code(s): I10 - ESSENTIAL (PRIMARY) HYPERTENSION Status: Chronic (15) Moderate aortic stenosis Code(s): I35.0 - NONRHEUMATIC AORTIC (VALVE) STENOSIS Status: Chronic (16) Hypomagnesemia Code(s): E83.42 - HYPOMAGNESEMIA Status: Resolved (17) Jejunostomy tube present Code(s): Z93.4 - OTHER ARTIFICIAL OPENINGS OF GASTROINTESTINAL TRACT STATUS Status: Acute (18) Perforated duodenal ulcer Code(s): K26.5 - CHRONIC OR UNSPECIFIED DUODENAL ULCER WITH PERFORATION Status : Acute Comment: s/p surgical repair (19) Respiratory insufficiency Code(s): R06.89 - OTHER ABNORMALITIES OF BREATHING Status: Acute (20) S/P exploratory laparotomy Status: Acute (21) S/P small bowel resection Code(s): Z90.49 - ACQUIRED ABSENCE OF OTHER SPECIFIED PARTS OF DIGESTIVE TRACT Status: Acute (22) Small bowel obstruction due to adhesions Code(s): K56.50 - INTESTNL ADHESIONS, UNSP TO PARTIAL VERSUS COMPLETE OBST Status: Acute (23) Status post jejunostomy Code(s): Z93.4 - OTHER ARTIFICIAL OPENINGS OF GASTROINTESTINAL TRACT STATUS Status: Acute (24) Anemia due to acute blood loss Code(s): D62 - ACUTE POSTHEMORRHAGIC ANEMIA Status: Acute (25) Thrombocytopenia Code(s): D69.6 - THROMBOCYTOPENIA, UNSPECIFIED Status: Acute - Plan cont current plan of care, plan discussed w/ family, continue antibiotics, PT/OT , social welfare administrator * medication reviewed as below * symptomatic treatment * discussed with daughter * discussed with surgeon * continue meropenam * will need rehab on discharge * diet as tolerated. Review of Systems - Review of Systems ENT: negative: Ear Pain, Ear Discharge, Nose Pain, Nose Discharge, Nose Congestion, Mouth Pain, Mouth Swelling, Throat Pain, Throat Swelling, Other Respiratory: negative: Cough, Dry, Shortness of Breath, Hemoptysis, SOB with Excertion, Pleuritic Pain, Sputum, Wheezing Cardiovascular: negative: chest pain, palpitations, orthopnea, paroxysmal nocturnal dyspnea, edema, light headedness, other Gastrointestinal: negative: Nausea, Vomiting, Abdominal Pain, Diarrhea, Constipation, Melena, Hematochezia, Other Genitourinary: negative: Dysuria, Frequency, Incontinence, Hematuria, Retention , Other Musculoskeletal: negative: Neck Pain, Shoulder Pain, Arm Pain, Back Pain, Hand Pain, Leg Pain, Foot Pain, Other - Medications/Allergies Allergies/Adverse Reactions: Allergies Allergy/AdvReac Type Severity Reaction Status Date / Time latex Allergy Rash Verified 04/12/17 01:00 neomycin Allergy Hives Verified 04/12/17 01:00 Zlpvobc-Bpw-Twu Reductase Allergy Verified 04/14/17 07:53 Inhibitor Medications: Current Medications Acetaminophen (Tylenol) 1,000 mg PO Q6HR [facility] Last Admin: 04/17/17 06:58 Dose: 1,000 mg Albuterol/Ipratropium (Duoneb) 3 ml NEB [id number] [facility] Last Admin: 04/17/17 07:53 Dose: 3 ml Alprazolam (Xanax) 0.25 mg PO TIDPRN PRN PRN Reason: Anxiety Last Admin: 04/16/17 21:09 Dose: 0.25 mg Lipase/Protease/Amylase ([place] [id number]) 1 cap FS .PER PROTOCOL PRN PRN Reason: TUBE OCCLUSION PROTOCOL Last Admin: 04/17/17 01:50 Dose: 1 cap Ascorbic Acid (Vitamin C) 500 mg PO BID [facility] Last Admin: 04/16/17 21:09 Dose: 500 mg Enoxaparin Sodium (Lovenox) 40 mg SC 2100 [facility] Last Admin: 04/16/17 21:10 Dose: 40 mg Escitalopram Oxalate (Lexapro) 10 mg PO DAILY [facility] Ferrous Sulfate (Feosol) 325 mg PO BID-[facility] Last Admin: 04/16/17 17:21 Dose: 325 mg Furosemide (Lasix) 40 mg SLOW IVP DAILY [facility] Meropenem 1 gm/ Sterile Water 20 mls @ 240 mls/hr IVPB Q8HR [facility] Last Admin: 04/17/17 06:57 Dose: 20 mls Levothyroxine Sodium (Synthroid) 25 mcg PO 0600 [facility] Last Admin: 04/17/17 06:58 Dose: 25 mcg Metoprolol Succinate (Toprol Xl) 12.5 mg PO DAILY [facility] Mometasone Furoate/Formoterol Fumar (Dulera 200 Mcg/5 Mcg Inhaler) 2 puff INH BID-RT [facility] Last Admin: 04/17/17 07:55 Dose: 2 puff Naloxone HCl (Narcan) 0.2 mg IV Q5MIN PRN PRN Reason: Opiate Reversal Pantoprazole Sodium (Protonix) 40 mg IVP 0100,0900,1700 [facility] Last Admin: 04/17/17 01:33 Dose: 40 mg Promethazine HCl (Phenergan) 12.5 mg IM Q4H PRN PRN Reason: Nausea/Vomiting Sodium Bicarbonate (Bicarbonate, Sodium) 650 mg PER TUBE .PER PROTOCOL PRN PRN Reason: ENTERAL TUBE OCCLUSION Last Admin: 04/17/17 01:48 Dose: 650 mg Sodium Chloride (Flush - Normal Saline) 10 ml IV 0100,0900,1700 [facility] Last Admin: 04/17/17 01:33 Dose: 10 ml Sodium Chloride (Flush - Normal Saline) 10 ml IVF PRN PRN PRN Reason: Saline Flush Tramadol HCl (Ultram) 50 mg PO Q6H PRN PRN Reason: breakthrough painn Tramadol HCl (Ultram) 50 mg PO Q6HR [facility] Last Admin: 04/17/17 06:58 Dose: 50 mg Zolpidem Tartrate (Ambien) 5 mg PO HSPRN PRN PRN Reason: Insomnia
--- NOTE | 2017-04-17 11:38 | PRG ---
DATE OF SERVICE: 04/17/2017. SUBJECTIVE: Ms. Millan is postoperative day #5 status post exploratory laparotomy, oversew of a perfor ated fourth portion duodenal ulcer, extensive adhesiolysis, segmental small bowel resection with prim lawrence anastomosis. The patient reports adequate pain control. She is passing flatus, but has not had any bowel movement . She tolerates clear liquid diet. The surgical jejunostomy tube inadvertently clogged last night. Attempts to clog has been successful . Urinary output has been marginal. The patient denies any dyspnea. She reports feeling "100% better than yesterday." OBJECTIVE: VITAL SIGNS: Today includes blood pressure 133/74, pulse is 86, respiratory rate 14. Maximum temper ature in the last 24 hours is 98.3 degrees Fahrenheit, oxygen saturation is 94% on room air. HEENT: Reveals normocephalic and atraumatic. Pupils are equal, round, and reactive to light and acc ommodation. She has a slight sclerae edema. NECK: No jugular venous distention noted. HEART: Reveals regular rate and rhythm, no murmurs or gallops auscultated. CHEST: Clear to auscultation bilaterally. Her breathing is regular and unlabored. CARDIOVASCULAR: Regular and unlabored. ABDOMEN: Soft and nondistended. She has mild tenderness to palpation with no gross rebound tenderne ss present. Two Jose Juan-Barba drains remain in place with moderate amount of serous fluid present. NEUROLOGIC: Reveals no focal deficits present. I removed the wound VAC dressing and the incisional wound remains intact, clean, and dry. IMPRESSION: Postoperative day #5, status post exploratory laparotomy. The patient is hemodynamicall y stable. PLAN: 1. We will start gentle diuresis. 2. The patient will be saline locked. 3. We will obtain a small bowel follow through, which if normal, diet will be advanced as tolerated. 4. Increase activity per physical and occupational therapy in anticipation to return to inpatient re habilitation.
[2017-04-17] MEDS: Ferrous Sulfate 325 MG TAB PO SCH ×2 (11:43→18:02)
[2017-04-17] MEDS: Ascorbic Acid 500 mg Chewable Tablet PO SCH ×2 (11:43→22:28)
[2017-04-17] MEDS: Escitalopram Oxalate 10 mg Tablet PO SCH (11:44)
[2017-04-17] MEDS: Furosemide 40 MG/4 ML VIAL SLOW IVP SCH (11:45)
[2017-04-17] MEDS ORDERED: Mag-Al 1200 mg/1200 mg/30 ML UDCUP PO PRN (12:34)
[2017-04-17] MEDS ORDERED: Diabetic Tussin 200 MG/10 ML UDCUP PO PRN (12:34)
[2017-04-17] MEDS ORDERED: Milk Of Magnesia 30 ML UDCUP PO PRN (12:34)
[2017-04-17] MEDS ORDERED: Ondansetron ODT 4 MG TAB PO PRN (12:34)
[2017-04-17] MEDS ORDERED: Senokot 8.6 MG TAB PO PRN (12:34)
[2017-04-17] MEDS ORDERED: Sodium Chloride 0.65% Nasal 44 ML BOT EA NARE PRN (12:34)
[2017-04-17] MEDS ORDERED: Artificial Tears 18 DROP/0.9 ML EA EYE PRN (12:34)
[2017-04-17] MEDS ORDERED: Eucerin (Mineral Oil/Petrolatum,White) 30 gm Jar TOP PRN (12:34)
[2017-04-17] MEDS ORDERED: hydrALAZINE 20 MG/ML VIAL SLOW IVP PRN (12:34)
[2017-04-17] MEDS ORDERED: Chloraseptic Spray 180 ml Bottle PO PRN (12:34)
[2017-04-17] MEDS ORDERED: Loratadine 10 MG TAB PO PRN (12:34)
[2017-04-17] MEDS: Ondansetron HCl/PF 4 MG/2 ML Vial IVP PRN (12:52)
[2017-04-17] MEDS ORDERED: MD-Gastroview 120 ML BOT ONE (17:07)
--- NOTE | 2017-04-17 20:10 | RAD ---
SMALL BOWEL FOLLOW-THROUGH: INDICATIONS: Gastroduodenal ulcer perforation. FINDINGS: [employer] images demonstrate some mildly distended loops of small bowel within the left central abdomen. There are surgical shakeel overlying the midline. There is a surgical drain projecting within the u pper aspect of the mid abdomen. There is gas present within the colon and rectum. Subsequent images after the administration of Gastrografin contrast demonstrate opacification of the stomach and loops of small bowel within the left lower quadrant. There is mild distention of a few l oops of small bowel within the left upper quadrant of the abdomen. Subsequent images performed over an eight-hour time period demonstrate eventual passage of the contrast through loops of normal appear ing small bowel, to the level of the colon and rectum. IMPRESSION: 1. Mild delay in transit of the Gastrografin contrast through the small bowel with contrast visualiz ed within the region of the colon and rectum by eight hours. 2. Mildly distended loops of small bowel in the left upper quadrant may reflect changes of a regiona l ileus. Continued followup is recommended. POS: [facility]
[2017-04-17] MEDS: Enoxaparin Sodium 40 MG/0.4 ML SYRINGE SC SCH (22:21)
[2017-04-17] MEDS ORDERED: Sodium Chloride 0.9% 500 ML IV SCH (23:00)
[2017-04-17] MEDS: D5 1/2 NS w/20 mEq KCL 1,000 ML IV SCH (23:54)
[2017-04-18] MEDS: traMADol HCl 50 MG TAB PO SCH ×4 (00:10→16:38)
[2017-04-18] MEDS: Acetaminophen 500 MG TAB PO SCH ×4 (00:10→16:38)
[2017-04-18 05:10] LABS: #Lymphocytes 0.6 thou/uL (1.20-3.40); #Monocytes 0.3 thou/uL (0.11-0.59); #Neutrophils 7.4 thou/uL (1.40-6.50); %Basophils 0.1 % (0.0-1.0); %Eosinophils 0.2 % (0.0-10.0); %Lymphocytes 7.6 % (21.0-51.0); Hemoglobin 9.3 g/dL (12.0-16.0); Mean Corpuscular HGB CONC 32.4 g/dL (32.0-36.0); Mean Corpuscular Hemoglobin 30.7 pg (27.0-31.0); Mean Corpuscular Volume 94.8 fl (81.0-99.0); Mean Platelet Volume 9.6 fL (7.4-10.4); Platelet Count 126 thou/uL (130-400); RBC Distribution Width 16.1 % (11.5-14.5); Red Blood Cell (RBC) Count 3.04 mill/uL (4.20-5.40); White Blood Cell (WBC) Count 8.3 thou/uL (4.8-10.8)
[2017-04-18 05:43] LABS: Anion Gap 14 mmol/L (10-20); BUN (Urea Nitrogen) 34 mg/dL (9.8-20.1); Calc. Creatinine Clearance 59 mL/min (70-130); Calcium 8.3 mg/dL (7.8-10.44); Carbon Dioxide 23 mmol/L (23-31); Chloride 109 mmol/L (98-107); Estimated GFR-MDRD 52; Glucose 119 mg/dL (83-110); Magnesium 1.6 mg/dL (1.6-2.6); Phosphorus 4.2 mg/dL (2.3-4.7); Potassium 4.6 mmol/L (3.5-5.1); Sodium 141 mmol/L (136-145)
[2017-04-18] MEDS: Levothyroxine Sodium 25 MCG TAB PO SCH (06:26)
[2017-04-18] MEDS: Pantoprazole 40 MG VIAL IVP SCH ×3 (06:27→16:38)
[2017-04-18] MEDS: Meropenem 1 GM in Sterile Water 20 ML IVPB SCH ×3 (06:46→22:07)
[2017-04-18] MEDS: Mometasone/Formoterol 120 PUFF INHALER INH SCH ×2 (08:41→20:49)
[2017-04-18] MEDS: Ascorbic Acid 500 mg Chewable Tablet PO SCH ×2 (09:30→21:50)
[2017-04-18] MEDS: Escitalopram Oxalate 10 mg Tablet PO SCH (09:30)
[2017-04-18] MEDS: Ferrous Sulfate 325 MG TAB PO SCH ×2 (09:30→10:35)
--- NOTE | 2017-04-18 10:07 | PDOC.PN ---
- Subjective Encounter Start Date: 04/18/17 Encounter Start Time: 08:50 Patient seen and examined. No new complaints. No overnight events pt had recurrent vomiting, required NG tube today resting - Objective MAR Reviewed: Yes Vital Signs & Weight: Vital Signs (12 hours) Temp Pulse Resp BP Pulse Ox 04/18/17 08:36 111 H 24 H 98 04/18/17 07:37 97.5 F L 102 H 14 147/73 H 96 04/18/17 04:00 97.3 F L 104 H 16 156/79 H 92 L 04/18/17 00:00 97.8 F 114 H 14 144/82 H 95 04/17/17 23:28 111 H 16 96 04/17/17 23:05 148/81 H Weight Admit Weight 178 lb Weight 178 lb 3.2 oz Most Recent Monitor Data Heart Rate from ECG 104 NIBP 136/77 NIBP BP-Mean 78 Respiration from ECG 17 SpO2 95 I&O: 04/17/17 04/18/17 04/19/17 06:59 06:59 06:59 Intake Total 2140 100 Output Total 605 2755 Balance 1535 -2655 Result Diagrams: 04/18/17 04:38 04/18/17 04:38 Radiology Reviewed by me: Yes (chest xray, abdomen xray) Phys Exam - Physical Examination Constitutional: NAD HEENT: moist MMs, sclera anicteric NG tube with LIS Neck: no JVD, supple Respiratory: no wheezing, no rales, no rhonchi Cardiovascular: RRR, no significant murmur, no rub Gastrointestinal: soft surgical site clean, 2 SAMIR drain+, J-tube+ Musculoskeletal: no edema, pulses present hill+ Neurological: non-focal, normal sensation Lymphatic: no nodes Psychiatric: normal affect Skin: no rash, normal turgor Dx/Plan (1) Acute abdominal pain Code(s): R10.9 - UNSPECIFIED ABDOMINAL PAIN Status: Resolved Comment: s/p laparotomy (2) Acute kidney failure Status: Resolved (3) Demand ischemia of myocardium Code(s): I24.8 - OTHER FORMS OF ACUTE ISCHEMIC HEART DISEASE Status: Resolved (4) Ischemia, bowel Code(s): K55.9 - VASCULAR DISORDER OF INTESTINE, UNSPECIFIED Status: Acute Comment: treated surgically (5) Lactic acidosis Code(s): E87.2 - ACIDOSIS Status: Resolved (6) Transaminitis Code(s): R74.0 - NONSPEC ELEV OF LEVELS OF TRANSAMNS & LACTIC ACID DEHYDRGNSE Status: Acute (7) Anxiety and depression Code(s): F41.9 - ANXIETY DISORDER, UNSPECIFIED; F32.9 - MAJOR DEPRESSIVE DISORDER, SINGLE EPISODE, UNSPECIFIED Status: Chronic (8) Arthritis, rheumatoid Code(s): M06.9 - RHEUMATOID ARTHRITIS, UNSPECIFIED Status: Chronic (9) CAD (coronary artery disease) Code(s): I25.10 - ATHSCL HEART DISEASE OF [place] CORONARY ARTERY W/O ANG PCTRS Status: Chronic (10) COPD (chronic obstructive pulmonary disease) Status: Chronic (11) Dyslipidemia Code(s): E78.5 - HYPERLIPIDEMIA, UNSPECIFIED Status: Chronic (12) GERD (gastroesophageal reflux disease) Code(s): K21.9 - GASTRO-ESOPHAGEAL REFLUX DISEASE WITHOUT ESOPHAGITIS Status: Chronic (13) Gout Code(s): M10.9 - GOUT, UNSPECIFIED Status: Chronic (14) Hypertension Code(s): I10 - ESSENTIAL (PRIMARY) HYPERTENSION Status: Chronic (15) Moderate aortic stenosis Code(s): I35.0 - NONRHEUMATIC AORTIC (VALVE) STENOSIS Status: Chronic (16) Hypomagnesemia Code(s): E83.42 - HYPOMAGNESEMIA Status: Resolved (17) Jejunostomy tube present Code(s): Z93.4 - OTHER ARTIFICIAL OPENINGS OF GASTROINTESTINAL TRACT STATUS Status: Acute (18) Perforated duodenal ulcer Code(s): K26.5 - CHRONIC OR UNSPECIFIED DUODENAL ULCER WITH PERFORATION Status : Acute Comment: s/p surgical repair (19) Respiratory insufficiency Code(s): R06.89 - OTHER ABNORMALITIES OF BREATHING Status: Resolved (20) S/P exploratory laparotomy Status: Acute (21) S/P small bowel resection Code(s): Z90.49 - ACQUIRED ABSENCE OF OTHER SPECIFIED PARTS OF DIGESTIVE TRACT Status: Acute (22) Small bowel obstruction due to adhesions Code(s): K56.50 - INTESTNL ADHESIONS, UNSP TO PARTIAL VERSUS COMPLETE OBST Status: Acute (23) Status post jejunostomy Code(s): Z93.4 - OTHER ARTIFICIAL OPENINGS OF GASTROINTESTINAL TRACT STATUS Status: Acute (24) Anemia due to acute blood loss Code(s): D62 - ACUTE POSTHEMORRHAGIC ANEMIA Status: Acute (25) Thrombocytopenia Code(s): D69.6 - THROMBOCYTOPENIA, UNSPECIFIED Status: Acute (26) Ileus, postoperative Code(s): K91.89 - OTH POSTPROCEDURAL COMPLICATIONS AND DISORDERS OF DGSTV SYS; K56.7 - ILEUS, UNSPECIFIED Status: Acute - Plan cont current plan of care, continue antibiotics * continue post operative care as per surgeon * continue meropenam * NG tube with LIS * J-tube feeding as tolerated * continue IVF * medication reviewed as below * symptomatic treatment. Review of Systems - Review of Systems Other: unable to review this morning as pt was sleeping - Medications/Allergies Allergies/Adverse Reactions: Allergies Allergy/AdvReac Type Severity Reaction Status Date / Time latex Allergy Rash Verified 04/12/17 01:00 neomycin Allergy Hives Verified 04/12/17 01:00 [id number] Reductase Allergy Verified 04/14/17 07:53 Inhibitor Medications: Current Medications Acetaminophen (Tylenol) 1,000 mg PO Q6HR [facility] Last Admin: 04/18/17 06:26 Dose: Not Given Al Hydroxide/Mg Hydroxide (Maalox) 15 ml PO Q4H PRN PRN Reason: Heartburn or Indigestion Albuterol/Ipratropium (Duoneb) 3 ml NEB [id number] Last Admin: 04/18/17 08:36 Dose: 3 ml Alprazolam (Xanax) 0.25 mg PO TIDPRN PRN PRN Reason: Anxiety Last Admin: 04/16/17 21:09 Dose: 0.25 mg Lipase/Protease/[place] ([place] [id number]) 1 cap FS .PER PROTOCOL PRN PRN Reason: TUBE OCCLUSION PROTOCOL Last Admin: 04/17/17 19:50 Dose: 1 cap Artificial Tears (Tears Naturale) 0 drop EA EYE PRN PRN PRN Reason: Dry Eyes Ascorbic Acid (Vitamin C) 500 mg PO BID [facility] Last Admin: 04/18/17 09:30 Dose: Not Given Enoxaparin Sodium (Lovenox) 40 mg SC 2100 [facility] Last Admin: 04/17/17 22:21 Dose: 40 mg Escitalopram Oxalate (Lexapro) 10 mg PO DAILY [facility] Last Admin: 04/18/17 09:30 Dose: Not Given Ferrous Sulfate (Feosol) 325 mg PO BID-[facility] Last Admin: 04/18/17 09:30 Dose: Not Given Furosemide (Lasix) 40 mg SLOW IVP DAILY [facility] Last Admin: 04/17/17 11:45 Dose: 40 mg Guaifenesin (Robitussin Sf) 200 mg PO Q4H PRN PRN Reason: Cough Hydralazine HCl (Apresoline) 10 mg SLOW IVP Q4H PRN PRN Reason: Systolic BP > 180 Meropenem 1 gm/ Sterile Water 20 mls @ 240 mls/hr IVPB Q8HR [facility] Last Admin: 04/18/17 06:46 Dose: 20 mls Potassium Chloride/Dextrose/Sod Cl (D5 1/2 Ns W/20 Meq Kcl) 1,000 mls @ 100 mls /hr IV .Q10H [facility] Last Admin: 04/17/17 23:54 Dose: 1,000 mls Sodium Chloride (Normal Saline 0.9%) 500 mls @ 999 mls/hr IV .Q31M [facility] Stop: 04/18/17 12:00 Levothyroxine Sodium (Synthroid) 25 mcg PO 0600 [facility] Last Admin: 04/18/17 06:26 Dose: Not Given Loratadine (Claritin) 10 mg PO DAILYPRN PRN PRN Reason: Sinus Symptoms Magnesium Hydroxide (Milk Of Magnesium) 30 ml PO DAILYPRN PRN PRN Reason: Constipation Metoprolol Succinate (Toprol Xl) 12.5 mg PO DAILY [facility] Last Admin: 04/17/17 11:43 Dose: 12.5 mg Mineral Oil/White Petrolatum (Eucerin Cream) 0 gm TOP BIDPRN PRN PRN Reason: Dry Skin Mometasone Furoate/Formoterol Fumar (Dulera 200 Mcg/5 Mcg Inhaler) 2 puff INH BID-[facility] Last Admin: 04/18/17 08:41 Dose: 2 puff Naloxone HCl (Narcan) 0.2 mg IV Q5MIN PRN PRN Reason: Opiate Reversal Ondansetron HCl (Zofran Odt) 4 mg PO Q6H PRN PRN Reason: Nausea/Vomiting Ondansetron HCl (Zofran) 4 mg IVP Q6H PRN PRN Reason: Nausea/Vomiting Last Admin: 04/17/17 12:52 Dose: 4 mg Pantoprazole Sodium (Protonix) 40 mg IVP 0100,0900,1700 [facility] Last Admin: 04/18/17 06:27 Dose: Not Given Phenol (Chloraseptic [place] 180 Ml Bot) 0 ml PO PRN PRN PRN Reason: Sore Throat Promethazine HCl (Phenergan) 12.5 mg IM Q4H PRN PRN Reason: Nausea/Vomiting Last Admin: 04/17/17 17:37 Dose: 12.5 mg Senna (Senokot) 2 tab PO HSPRN PRN PRN Reason: Constipation Sodium Bicarbonate (Bicarbonate, Sodium) 650 mg PER TUBE .PER PROTOCOL PRN PRN Reason: ENTERAL TUBE OCCLUSION Last Admin: 04/17/17 19:49 Dose: 650 mg Sodium Chloride (Flush - Normal Saline) 10 ml IV 0100,0900,1700 [facility] Last Admin: 04/17/17 22:28 Dose: Not Given Sodium Chloride (Flush - Normal Saline) 10 ml IVF PRN PRN PRN Reason: Saline Flush Sodium Chloride ([place] Nasal [place] 0.65%) 0 ml EA NARE QIDPRN PRN PRN Reason: Nasal Congestion Tramadol HCl (Ultram) 50 mg PO Q6H PRN PRN Reason: breakthrough painn Tramadol HCl (Ultram) 50 mg PO Q6HR [facility] Last Admin: 04/18/17 06:37 Dose: Not Given Zolpidem Tartrate (Ambien) 5 mg PO HSPRN PRN PRN Reason: Insomnia
[2017-04-18] MEDS: Furosemide 40 MG/4 ML VIAL SLOW IVP SCH (10:22)
[2017-04-18] MEDS: D5 1/2 NS w/20 mEq KCL 1,000 ML IV SCH ×2 (10:23→21:47)
[2017-04-18] MEDS: Sodium Chloride 0.9% 500 ML IV SCH ×3 (10:25→14:24)
--- NOTE | 2017-04-18 15:05 | RAD ---
RADIOGRAPH CHEST 1 VIEW: Date: 04-18-2017 Time: 10:04 a.m. HISTORY: 76-year-old female with tachypnea. COMPARISON: 04-13-17 FINDINGS: Endotracheal tube, NG tube, and left subclavian central line remain. Two new foci of subsegmental ate lectasis at the bilateral lower lung zones compared to the previous study. No other interval change. No cardiomegaly, pulmonary edema, pneumothorax, or effacement of lateral costophrenic angles. Sternot denise wires. IMPRESSION: 1. Interval development of subsegmental atelectasis at the bilateral lower lung zones. 2. No other interval change. DORIS POS: [facility]
--- NOTE | 2017-04-18 15:10 | RAD ---
RADIOGRAPH ABDOMEN ONE VIEW SUPINE: Date: 04-18-2017 Time: 10:02 a.m. History: 76-year-old female with ileus. Comparison: The last image of the small bowel series, 04-17-17 at 7:05 p.m. FINDINGS: Almost all of the enteric contrast material has exited the stomach and small intestine, and is now en tirely within the nondilated colon, including the rectum. Midline skin shakeel and multiple catheters coiled over the abdomen, are again noted. IMPRESSION: No evidence of high-grade small bowel obstruction. POS: [facility]
--- NOTE | 2017-04-18 18:32 | PRG ---
DATE OF SERVICE: 04/18/2017 ATTENDING PHYSICIAN: Dr. Carlo Jang. This is Charmaine Mckeon, nurse practitioner, dictating daily progress note for Dr. Carlo Jang. SUBJECTIVE: Ms. Millan is postop day #6 status post exploratory laparotomy, oversew of a perforated fourth portion duodenal ulcer, extensive adhesiolysis, segmental small bowel resection with primary anastomosis. Patient had small bowel follow through yesterday. Last night, she began vomiting and NG tube was placed. A small bowel follow through showed mild delay in transit of Gastrografin contrast through the small bowel with contrast visualized within the region of the colon and rectum by 8 hours as well as mildly distended loops of small bowel in the left upper quadrant, which may reflect ileus. NG tube was placed and nausea subsequently resolved. She was seen multiple times today with Dr. Jang. She has not had any further nausea. She has been passing flatus. Follow up x-ray shows contrast in the colon. Hospital medicine is continuing to follow. OBJECTIVE: VITAL SIGNS: This morning, temperature 97.4, pulse 110, respirations 16, O2 sat 94%, blood pressure 156/83. HEENT: Normocephalic, atraumatic. PULMONARY: Respirations even, unlabored. No respiratory distress. Bilateral breath sounds clear to auscultation. CARDIOVASCULAR: Regular rate and rhythm. ABDOMEN: Soft, nontender, nondistended. G-tube in place. SAMIR drains in place with serosanguineous drainage. EXTREMITIES: Moves all extremities. NEUROLOGIC: GCS of 15. PSYCHIATRIC: A and O x3. ASSESSMENT: 1. Status post exploratory laparotomy with repair of ulcer. 2. Postoperative ileus. 3. Status post NG tube placement. 4. Follow up abdominal x-ray shows contrast in colon. PLAN: 1. Discontinue NG tube and start her on clear liquid diet. 2. Patient out of bed to chair today. 3. Continue maintenance IV fluids. 4. Case management following for discharge planning. Anticipate patient will return to SNF or rehab after discharge. The patient was seen and examined with Dr. Jang, who agrees with the assessment and plan. [facility]
[2017-04-18] MEDS: ALPRAZolam 0.25 MG TAB PO PRN (19:09)
[2017-04-18] MEDS: Enoxaparin Sodium 40 MG/0.4 ML SYRINGE SC SCH (21:50)
[2017-04-19] MEDS: Acetaminophen 500 MG TAB PO SCH ×5 (00:47→23:45)
[2017-04-19] MEDS: traMADol HCl 50 MG TAB PO SCH ×3 (00:48→12:14)
[2017-04-19] MEDS: Pantoprazole 40 MG VIAL IVP SCH ×4 (01:24→23:47)
[2017-04-19] MEDS: D5 1/2 NS w/20 mEq KCL 1,000 ML IV SCH ×2 (03:30→15:56)
[2017-04-19 05:42] LABS: #Eosinphils 0.1 thou/uL (0.0-0.7); #Lymphocytes 0.9 thou/uL (1.20-3.40); #Monocytes 0.4 thou/uL (0.11-0.59); #Neutrophils 6.5 thou/uL (1.40-6.50); %Basophils 0.2 % (0.0-1.0); %Lymphocytes 11.1 % (21.0-51.0); %Monocytes 4.7 % (0.0-10.0); Mean Corpuscular Volume 93.9 fl (81.0-99.0); Mean Platelet Volume 9.5 fL (7.4-10.4); Platelet Count 136 thou/uL (130-400); RBC Distribution Width 16.1 % (11.5-14.5); Red Blood Cell (RBC) Count 2.68 mill/uL (4.20-5.40); White Blood Cell (WBC) Count 7.9 thou/uL (4.8-10.8)
[2017-04-19 06:08] LABS: Anion Gap 9 mmol/L (10-20); BUN (Urea Nitrogen) 33 mg/dL (9.8-20.1); Calc. Creatinine Clearance 63 mL/min (70-130); Calcium 7.9 mg/dL (7.8-10.44); Carbon Dioxide 25 mmol/L (23-31); Chloride 108 mmol/L (98-107); Estimated GFR-MDRD 56; Glucose 137 mg/dL (83-110); Magnesium 1.5 mg/dL (1.6-2.6); Phosphorus 2.8 mg/dL (2.3-4.7); Potassium 4.6 mmol/L (3.5-5.1); Sodium 137 mmol/L (136-145)
[2017-04-19] MEDS: Mometasone/Formoterol 120 PUFF INHALER INH SCH ×2 (06:54→20:26)
[2017-04-19] MEDS: Meropenem 1 GM in Sterile Water 20 ML IVPB SCH ×3 (06:58→21:28)
[2017-04-19] MEDS: Levothyroxine Sodium 25 MCG TAB PO SCH (06:59)
[2017-04-19] MEDS ORDERED: Magnesium Sulfate 3 GM in Sodium Chloride 0.9% 100 ML IVPB SCH (08:00)
[2017-04-19] MEDS: Escitalopram Oxalate 10 mg Tablet PO SCH (08:53)
[2017-04-19] MEDS: Ferrous Sulfate 325 MG TAB PO SCH ×2 (08:53→19:04)
[2017-04-19] MEDS: Ascorbic Acid 500 mg Chewable Tablet PO SCH ×2 (08:54→21:25)
--- NOTE | 2017-04-19 10:20 | PDOC.PN ---
- Subjective Encounter Start Date: 04/19/17 Encounter Start Time: 08:00 today she is doing well. tolerating diet so far, NG removed yesterday - Objective MAR Reviewed: Yes Vital Signs & Weight: Vital Signs (12 hours) Temp Pulse Resp BP BP Pulse Ox 04/19/17 07:50 97.3 F L 96 20 111/69 96 04/19/17 06:51 94 18 95 04/19/17 04:00 97.5 F L 99 18 115/68 98 04/19/17 00:47 105 H 18 92 L 04/19/17 00:00 99 F 102 H 16 135/70 93 L Weight Admit Weight 178 lb Weight 178 lb 3.2 oz Most Recent Monitor Data Heart Rate from ECG 104 NIBP 136/77 NIBP BP-Mean 78 Respiration from ECG 17 SpO2 95 I&O: 04/18/17 04/19/17 04/20/17 06:59 06:59 06:59 Intake Total 100 3940 Output Total 2755 1020 Balance -2655 2920 Result Diagrams: 04/19/17 05:05 04/19/17 05:05 Radiology Reviewed by me: Yes (Small bowel xray) Phys Exam - Physical Examination Constitutional: NAD HEENT: PERRLA, moist MMs, sclera anicteric Neck: no JVD, supple Respiratory: no wheezing, no rales, no rhonchi reduced air entry at base Cardiovascular: RRR, no rub SM+ Gastrointestinal: soft surgical site with shakeel, [address], J-tube+ Musculoskeletal: no edema, pulses present Neurological: non-focal, normal sensation, moves all 4 limbs Psychiatric: normal affect, A&O x 3 Skin: no rash, normal turgor Dx/Plan (1) Acute abdominal pain Code(s): R10.9 - UNSPECIFIED ABDOMINAL PAIN Status: Resolved Comment: s/p laparotomy (2) Acute kidney failure Status: Resolved (3) Demand ischemia of myocardium Code(s): I24.8 - OTHER FORMS OF ACUTE ISCHEMIC HEART DISEASE Status: Resolved (4) Ischemia, bowel Code(s): K55.9 - VASCULAR DISORDER OF INTESTINE, UNSPECIFIED Status: Acute Comment: treated surgically (5) Lactic acidosis Code(s): E87.2 - ACIDOSIS Status: Resolved (6) Transaminitis Code(s): R74.0 - NONSPEC ELEV OF LEVELS OF TRANSAMNS & LACTIC ACID DEHYDRGNSE Status: Acute (7) Anxiety and depression Code(s): F41.9 - ANXIETY DISORDER, UNSPECIFIED; F32.9 - MAJOR DEPRESSIVE DISORDER, SINGLE EPISODE, UNSPECIFIED Status: Chronic (8) Arthritis, rheumatoid Code(s): M06.9 - RHEUMATOID ARTHRITIS, UNSPECIFIED Status: Chronic (9) CAD (coronary artery disease) Code(s): I25.10 - ATHSCL HEART DISEASE OF [place] CORONARY ARTERY W/O ANG PCTRS Status: Chronic (10) COPD (chronic obstructive pulmonary disease) Status: Chronic (11) Dyslipidemia Code(s): E78.5 - HYPERLIPIDEMIA, UNSPECIFIED Status: Chronic (12) GERD (gastroesophageal reflux disease) Code(s): K21.9 - GASTRO-ESOPHAGEAL REFLUX DISEASE WITHOUT ESOPHAGITIS Status: Chronic (13) Gout Code(s): M10.9 - GOUT, UNSPECIFIED Status: Chronic (14) Hypertension Code(s): I10 - ESSENTIAL (PRIMARY) HYPERTENSION Status: Chronic (15) Moderate aortic stenosis Code(s): I35.0 - NONRHEUMATIC AORTIC (VALVE) STENOSIS Status: Chronic (16) Hypomagnesemia Code(s): E83.42 - HYPOMAGNESEMIA Status: Resolved (17) Jejunostomy tube present Code(s): Z93.4 - OTHER ARTIFICIAL OPENINGS OF GASTROINTESTINAL TRACT STATUS Status: Acute (18) Perforated duodenal ulcer Code(s): K26.5 - CHRONIC OR UNSPECIFIED DUODENAL ULCER WITH PERFORATION Status : Acute Comment: s/p surgical repair (19) Respiratory insufficiency Code(s): R06.89 - OTHER ABNORMALITIES OF BREATHING Status: Resolved (20) S/P exploratory laparotomy Status: Acute (21) S/P small bowel resection Code(s): Z90.49 - ACQUIRED ABSENCE OF OTHER SPECIFIED PARTS OF DIGESTIVE TRACT Status: Acute (22) Small bowel obstruction due to adhesions Code(s): K56.50 - INTESTNL ADHESIONS, UNSP TO PARTIAL VERSUS COMPLETE OBST Status: Acute (23) Status post jejunostomy Code(s): Z93.4 - OTHER ARTIFICIAL OPENINGS OF GASTROINTESTINAL TRACT STATUS Status: Acute (24) Anemia due to acute blood loss Code(s): D62 - ACUTE POSTHEMORRHAGIC ANEMIA Status: Acute (25) Thrombocytopenia Code(s): D69.6 - THROMBOCYTOPENIA, UNSPECIFIED Status: Acute (26) Ileus, postoperative Code(s): K91.89 - OTH POSTPROCEDURAL COMPLICATIONS AND DISORDERS OF DGSTV SYS; K56.7 - ILEUS, UNSPECIFIED Status: Acute - Plan cont current plan of care, hill catheter, continue antibiotics, PT/OT, respiratory therapy, incentive spirometry * continue IVF * replace magnesium sulfate * diet as tolerated * wean off fluid * continue post surgical care * will need rehab when surgically cleared * medication reviewed as below * symptomatic treatment. * [facility] Systems - Review of Systems ENT: negative: Ear Pain, Ear Discharge, Nose Pain, Nose Discharge, Nose Congestion, Mouth Pain, Mouth Swelling, Throat Pain, Throat Swelling, Other Respiratory: negative: Cough, Dry, Shortness of Breath, Hemoptysis, SOB with Excertion, Pleuritic Pain, Sputum, Wheezing Cardiovascular: negative: chest pain, palpitations, orthopnea, paroxysmal nocturnal dyspnea, edema, light headedness, other Gastrointestinal: negative: Nausea, Vomiting, Abdominal Pain, Diarrhea, Constipation, Melena, Hematochezia, Other Genitourinary: negative: Dysuria, Frequency, Incontinence, Hematuria, Retention , Other Musculoskeletal: negative: Neck Pain, Shoulder Pain, Arm Pain, Back Pain, Hand Pain, Leg Pain, Foot Pain, Other Skin: negative: Rash, Lesions, Abad, Bruising, Other - Medications/Allergies Allergies/Adverse Reactions: Allergies Allergy/AdvReac Type Severity Reaction Status Date / Time latex Allergy Rash Verified 04/12/17 01:00 neomycin Allergy Hives Verified 04/12/17 01:00 [id number]-Smu-Qbc Reductase Allergy Verified 04/14/17 07:53 Inhibitor Medications: Current Medications Acetaminophen (Tylenol) 1,000 mg PO Q6HR GABY Last Admin: 04/19/17 06:59 Dose: 1,000 mg Al Hydroxide/Mg Hydroxide (Maalox) 15 ml PO Q4H PRN PRN Reason: Heartburn or Indigestion Albumin Human (Albumin 25%) 25 gm IVPB ONE ONE Stop: 04/19/17 10:11 Albuterol/Ipratropium (Duoneb) 3 ml NEB [id number] GABY Last Admin: 04/19/17 06:51 Dose: 3 ml Alprazolam (Xanax) 0.25 mg PO TIDPRN PRN PRN Reason: Anxiety Last Admin: 04/18/17 19:09 Dose: 0.25 mg Lipase/Protease/Amylase ([place] [id number]) 1 cap FS .PER PROTOCOL PRN PRN Reason: TUBE OCCLUSION PROTOCOL Last Admin: 04/17/17 19:50 Dose: 1 cap Artificial Tears (Tears Naturale) 0 drop EA EYE PRN PRN PRN Reason: Dry Eyes Ascorbic Acid (Vitamin C) 500 mg PO BID [facility] Last Admin: 04/19/17 08:54 Dose: 500 mg Enoxaparin Sodium (Lovenox) 40 mg SC 2100 [facility] Last Admin: 04/18/17 21:50 Dose: 40 mg Escitalopram Oxalate (Lexapro) 10 mg PO DAILY [facility] Last Admin: 04/19/17 08:53 Dose: 10 mg [facility]ous S[facility] ([facility]) [facility] Last Admin: 04/19/17 08:53 Dose: 325 mg Furosemide (Lasix) 20 mg SLOW IVP ONE [facility] Guaifenesin (Robitussin Sf) 200 mg PO Q4H PRN PRN Reason: Cough Hydralazine HCl (Apresoline) 10 mg SLOW IVP Q4H PRN PRN Reason: Systolic BP > 180 Meropenem 1 gm/ Sterile Water 20 mls @ 240 mls/hr IVPB Q8HR [facility] Last Admin: 04/19/17 06:58 Dose: 20 mls Potassium Chloride/Dextrose/Sod Cl (D5 1/2 Ns W/20 Meq Kcl) 1,000 mls @ 100 mls /hr IV .Q10H [facility] Last Admin: 04/19/17 03:30 Dose: 1,000 mls Magnesium Sulfate 3 gm/ Sodium (Chloride) 106 mls @ 70.667 mls/hr IVPB 0800 [facility] Stop: 04/19/17 11:00 Last Admin: 04/19/17 08:52 Dose: 106 mls Levothyroxine Sodium (Synthroid) 25 mcg PO 0600 [facility] Last Admin: 04/19/17 06:59 Dose: 25 mcg Loratadine (Claritin) 10 mg PO DAILYPRN PRN PRN Reason: Sinus Symptoms Magnesium Hydroxide (Milk Of Magnesium) 30 ml PO DAILYPRN PRN PRN Reason: Constipation Metoprolol Succinate (Toprol Xl) 12.5 mg PO DAILY [facility] Last Admin: 04/19/17 08:53 Dose: 12.5 mg Mineral Oil/White Petrolatum (Eucerin Cream) 0 gm TOP BIDPRN PRN PRN Reason: Dry Skin Mometasone Furoate/Formoterol Fumar (Dulera 200 Mcg/5 Mcg Inhaler) 2 puff INH BID-RT [facility] Last Admin: 04/19/17 06:54 Dose: 2 puff Naloxone HCl (Narcan) 0.2 mg IV Q5MIN PRN PRN Reason: Opiate Reversal Ondansetron HCl (Zofran Odt) 4 mg PO Q6H PRN PRN Reason: Nausea/Vomiting Ondansetron HCl (Zofran) 4 mg IVP Q6H PRN PRN Reason: Nausea/Vomiting Last Admin: 04/17/17 12:52 Dose: 4 mg Pantoprazole Sodium (Protonix) 40 mg IVP 0100,0900,1700 [facility] Last Admin: 04/19/17 01:24 Dose: 40 mg Phenol (Chloraseptic [place] 180 Ml Bot) 0 ml PO PRN PRN PRN Reason: Sore Throat Promethazine HCl (Phenergan) 12.5 mg IM Q4H PRN PRN Reason: Nausea/Vomiting Last Admin: 04/17/17 17:37 Dose: 12.5 mg Senna (Senokot) 2 tab PO HSPRN PRN PRN Reason: Constipation Sodium Bicarbonate (Bicarbonate, Sodium) 650 mg PER TUBE .PER PROTOCOL PRN PRN Reason: ENTERAL TUBE OCCLUSION Last Admin: 04/17/17 19:49 Dose: 650 mg Sodium Chloride (Flush - Normal Saline) 10 ml IV 0100,0900,1700 [facility] Last Admin: 04/19/17 08:56 Dose: 10 ml Sodium Chloride (Flush - Normal Saline) 10 ml IVF PRN PRN PRN Reason: Saline Flush Sodium Chloride ([place] Nasal [place] 0.65%) 0 ml EA NARE QIDPRN PRN PRN Reason: Nasal Congestion Tramadol HCl (Ultram) 50 mg PO Q6H PRN PRN Reason: breakthrough painn Tramadol HCl (Ultram) 50 mg PO Q6HR [facility] Last Admin: 04/19/17 06:59 Dose: 50 mg Zolpidem Tartrate (Ambien) 5 mg PO HSPRN PRN PRN Reason: Insomnia
--- NOTE | 2017-04-19 11:27 | RAD ---
FRONTAL ABDOMEN SERIES: Comparison: 04-18-17 Clinical history: Ileus. J tube verification. FINDINGS: Catheter tubing overlies the abdomen. There is opacification of small bowel loops of the left abdomen . Residual contrast in the colon is again seen. There are metallic shakeel overlying the abdomen. IMPRESSION: 1. Contrast opacification of loops of small bowel with adjacent catheter tubing of the left abdomen. This corresponds to the provided history of J tube placement. 2. Residual contrast of the colon remains. POS: АЛЕКСАНДР
[2017-04-19] MEDS ORDERED: Albumin 25% 25 GM/100 ML BOT IVPB ONE (11:30)
[2017-04-19] MEDS ORDERED: GASTROGRAFIN 30 ML BOT ONE (11:48)
[2017-04-19] MEDS ORDERED: Furosemide 20 MG/2 ML VIAL SLOW IVP SCH (14:30)
[2017-04-19] MEDS ORDERED: traMADol HCl 50 MG TAB PO PRN ×2 (15:43)
--- NOTE | 2017-04-19 17:14 | PRG ---
DATE OF SERVICE: 04/19/2017 SUBJECTIVE: Ms. Millan is 7 days status post exploratory laparotomy. She denies any abdominal pain. Nausea has resolved. Nasogastric tube has since been discontinued. The nonfunctional surgical jejun ostomy tube has been resolved today. The tube is now patent. The patient reports adequate pain cont rol. She tolerates clear liquid diet. She reports one bowel movement last night. OBJECTIVE: VITAL SIGNS: Today includes blood pressure 118/61, pulse 93, respiratory rate 16, temperature is 98. 2 degrees Fahrenheit, and oxygen saturation is 93% on room air. HEENT: Examination reveals normocephalic and atraumatic. She has no jugular venous distention noted . HEART: Reveals regular rate and rhythm, no murmurs or gallops auscultated. LUNGS: Clear to auscultation bilaterally. Breathing is regular and unlabored. ABDOMEN: Soft, nontender, nondistended. Bowel sounds in all four quadrants appear normoactive. The Jose Juan-Barba drain is returning scant serous fluid. NEUROLOGIC: Examination reveals no focal deficits present. LABORATORY DATA: Pertinent laboratory finding today includes metabolic profile: Sodium 137, potassi um is 4.6, chloride is 108, bicarbonate 25, BUN 33, creatinine is 0.97, glucose is 137, magnesium is 1.5, and phosphorus is 2.8. CBC with 7,900 white blood cells, hemoglobin and hematocrit are stable a t 8.0 and 25.1 respectively, platelet count is 136,000. IMPRESSION: 1. Postoperative day #7 status post exploratory laparotomy. 2. Stable acute blood loss anemia. 3. Acute hypomagnesemia. 4. Acute hypophosphatemia. 5. Resolving acute on chronic renal insufficiency. PLAN: We will saline lock. Diet will be advanced as tolerated. We will correct abnormal electrolyt es. Activity will be increased per physical and occupational therapy in anticipation to return to in patient rehabilitation. Both findings and plan discussed with the patient and adult daughter at [facility]. They both indicated understanding of information given. I have answered her questions.
[2017-04-19] MEDS: Ondansetron HCl/PF 4 MG/2 ML Vial IVP PRN (19:03)
[2017-04-19] MEDS: Enoxaparin Sodium 40 MG/0.4 ML SYRINGE SC SCH (21:25)
[2017-04-19] MEDS: ALPRAZolam 0.25 MG TAB PO PRN (21:34)
--- NOTE | 2017-04-20 00:01 | PRG ---
DATE OF SERVICE: 04/19/2017 SUBJECTIVE: Valarie Millan is a 76-year-old female status post lysis of adhesions. Her J-tube was fer ar today; however, she was started on a clear liquid diet by the day shift team. She was also starte d on Ensure; however, the patient reports that she has had a negative reaction with nausea and diarrh ea associated with Ensure use in the past. Shortly after receiving Ensure, the patient had nausea wi thout vomiting, and diarrhea. Nausea was improved with Zofran. The patient states that she just fee ls tired at this time. OBJECTIVE: VITAL SIGNS: Stable. The patient is afebrile. GENERAL: Resting in bed, in no acute distress. RESPIRATORY: Normal work of breathing. ABDOMEN: Soft, nontender, nondistended. ASSESSMENT AND PLAN: As documented by Dr. Larson earlier today. Continue diet for now. If nausea co ntinues, may need further investigation. However, this episode may be related to Ensure as she has h ad similar occurrences in the past. We will continue to monitor.
[2017-04-20] MEDS: Acetaminophen 500 MG TAB PO SCH ×3 (05:03→17:29)
[2017-04-20] MEDS: Meropenem 1 GM in Sterile Water 20 ML IVPB SCH ×3 (05:04→21:25)
[2017-04-20] MEDS: Levothyroxine Sodium 25 MCG TAB PO SCH (05:04)
--- NOTE | 2017-04-20 10:19 | PDOC.PN ---
- Subjective Encounter Start Date: 04/20/17 Encounter Start Time: 08:20 Patient seen and examined. No new complaints. No overnight events c/o sore throat - Objective MAR Reviewed: Yes Vital Signs & Weight: Vital Signs (12 hours) Temp Pulse Resp BP BP Pulse Ox 04/20/17 08:10 97.4 F L 93 18 126/73 95 04/20/17 03:47 99.1 F 101 H 18 129/65 95 04/20/17 01:30 99.3 F 97 20 125/69 95 04/19/17 23:54 99.7 F H 95 20 130/76 99 Weight Admit Weight 178 lb Weight 178 lb 3.2 oz Most Recent Monitor Data Heart Rate from ECG 104 NIBP 136/77 NIBP BP-Mean 78 Respiration from ECG 17 SpO2 95 I&O: 04/19/17 04/20/17 04/21/17 06:59 06:59 06:59 Intake Total 3940 2117 Output Total 1020 679 Balance 2920 1438 Result Diagrams: 04/19/17 05:05 04/19/17 05:05 Phys Exam - Physical Examination Constitutional: NAD HEENT: PERRLA, moist MMs, sclera anicteric Neck: no JVD, supple Respiratory: no wheezing, no rales, no rhonchi Cardiovascular: RRR, no significant murmur, no rub Gastrointestinal: soft, non-tender, no distention, positive bowel sounds surgical site clean, drain, j-tube Musculoskeletal: no edema, pulses present Neurological: non-focal, normal sensation Lymphatic: no nodes Psychiatric: normal affect Skin: no rash, normal turgor Dx/Plan (1) Acute abdominal pain Code(s): R10.9 - UNSPECIFIED ABDOMINAL PAIN Status: Resolved Comment: s/p laparotomy (2) Acute kidney failure Status: Resolved (3) Demand ischemia of myocardium Code(s): I24.8 - OTHER FORMS OF ACUTE ISCHEMIC HEART DISEASE Status: Resolved (4) Ischemia, bowel Code(s): K55.9 - VASCULAR DISORDER OF INTESTINE, UNSPECIFIED Status: Acute Comment: treated surgically (5) Lactic acidosis Code(s): E87.2 - ACIDOSIS Status: Resolved (6) Transaminitis Code(s): R74.0 - NONSPEC ELEV OF LEVELS OF TRANSAMNS & LACTIC ACID DEHYDRGNSE Status: Acute (7) Anxiety and depression Code(s): F41.9 - ANXIETY DISORDER, UNSPECIFIED; F32.9 - MAJOR DEPRESSIVE DISORDER, SINGLE EPISODE, UNSPECIFIED Status: Chronic (8) Arthritis, rheumatoid Code(s): M06.9 - RHEUMATOID ARTHRITIS, UNSPECIFIED Status: Chronic (9) CAD (coronary artery disease) Code(s): I25.10 - ATHSCL HEART DISEASE OF [place] CORONARY ARTERY W/O ANG PCTRS Status: Chronic (10) COPD (chronic obstructive pulmonary disease) Status: Chronic (11) Dyslipidemia Code(s): E78.5 - HYPERLIPIDEMIA, UNSPECIFIED Status: Chronic (12) GERD (gastroesophageal reflux disease) Code(s): K21.9 - GASTRO-ESOPHAGEAL REFLUX DISEASE WITHOUT ESOPHAGITIS Status: Chronic (13) Gout Code(s): M10.9 - GOUT, UNSPECIFIED Status: Chronic (14) Hypertension Code(s): I10 - ESSENTIAL (PRIMARY) HYPERTENSION Status: Chronic (15) Moderate aortic stenosis Code(s): I35.0 - NONRHEUMATIC AORTIC (VALVE) STENOSIS Status: Chronic (16) Hypomagnesemia Code(s): E83.42 - HYPOMAGNESEMIA Status: Resolved (17) Jejunostomy tube present Code(s): Z93.4 - OTHER ARTIFICIAL OPENINGS OF GASTROINTESTINAL TRACT STATUS Status: Acute (18) Perforated duodenal ulcer Code(s): K26.5 - CHRONIC OR UNSPECIFIED DUODENAL ULCER WITH PERFORATION Status : Acute Comment: s/p surgical repair (19) Respiratory insufficiency Code(s): R06.89 - OTHER ABNORMALITIES OF BREATHING Status: Resolved (20) S/P exploratory laparotomy Status: Acute (21) S/P small bowel resection Code(s): Z90.49 - ACQUIRED ABSENCE OF OTHER SPECIFIED PARTS OF DIGESTIVE TRACT Status: Acute (22) Small bowel obstruction due to adhesions Code(s): K56.50 - INTESTNL ADHESIONS, UNSP TO PARTIAL VERSUS COMPLETE OBST Status: Acute (23) Status post jejunostomy Code(s): Z93.4 - OTHER ARTIFICIAL OPENINGS OF GASTROINTESTINAL TRACT STATUS Status: Acute (24) Anemia due to acute blood loss Code(s): D62 - ACUTE POSTHEMORRHAGIC ANEMIA Status: Acute (25) Thrombocytopenia Code(s): D69.6 - THROMBOCYTOPENIA, UNSPECIFIED Status: Acute (26) Ileus, postoperative Code(s): K91.89 - OTH POSTPROCEDURAL COMPLICATIONS AND DISORDERS OF DGSTV SYS; K56.7 - ILEUS, UNSPECIFIED Status: Acute - Plan cont current plan of care, plan discussed w/ family, continue antibiotics * very weak but needs more PT * throat is clear, no exudate * dc when surgeon ok * high risk for readmission * medication reviewed as below * symptomatic treatment. Review of Systems - Review of Systems ENT: negative: Ear Pain, Ear Discharge, Nose Pain, Nose Discharge, Nose Congestion, Mouth Pain, Mouth Swelling, Throat Pain, Throat Swelling, Other Respiratory: negative: Cough, Dry, Shortness of Breath, Hemoptysis, SOB with Excertion, Pleuritic Pain, Sputum, Wheezing Cardiovascular: negative: chest pain, palpitations, orthopnea, paroxysmal nocturnal dyspnea, edema, light headedness, other Gastrointestinal: negative: Nausea, Vomiting, Abdominal Pain, Diarrhea, Constipation, Melena, Hematochezia, Other Genitourinary: negative: Dysuria, Frequency, Incontinence, Hematuria, Retention , Other Musculoskeletal: negative: Neck Pain, Shoulder Pain, Arm Pain, Back Pain, Hand Pain, Leg Pain, Foot Pain, Other Skin: negative: Rash, Lesions, Abad, Bruising, Other - Medications/Allergies Allergies/Adverse Reactions: Allergies Allergy/AdvReac Type Severity Reaction Status Date / Time latex Allergy Rash Verified 04/12/17 01:00 neomycin Allergy Hives Verified 04/12/17 01:00 Zsbzdta-Axg-Vyk Reductase Allergy Verified 04/14/17 07:53 Inhibitor Medications: Current Medications Acetaminophen (Tylenol) 1,000 mg PO Q6HR [facility] Last Admin: 04/20/17 05:03 Dose: 1,000 mg Al Hydroxide/Mg Hydroxide (Maalox) 15 ml PO Q4H PRN PRN Reason: Heartburn or Indigestion Albuterol/Ipratropium (Duoneb) 3 ml NEB [id number] GABY Last Admin: 04/20/17 01:58 Dose: Not Given Alprazolam (Xanax) 0.25 mg PO TIDPRN PRN PRN Reason: Anxiety Last Admin: 04/19/17 21:34 Dose: 0.25 mg Lipase/Protease/Amylase ([place] [id number]) 1 cap FS .PER PROTOCOL PRN PRN Reason: TUBE OCCLUSION PROTOCOL Last Admin: 04/17/17 19:50 Dose: 1 cap Artificial Tears (Tears Naturale) 0 drop EA EYE PRN PRN PRN Reason: Dry Eyes Ascorbic Acid (Vitamin C) 500 mg PO BID [facility] Last Admin: 04/19/17 21:25 Dose: 500 mg Aspirin (Ecotrin) 81 mg PO DAILY [facility] Calcium Carbonate (Oscal-500) 500 mg PO DAILY [facility] Enoxaparin Sodium (Lovenox) 40 mg SC 2100 [facility] Last Admin: 04/19/17 21:25 Dose: 40 mg Escitalopram Oxalate (Lexapro) 10 mg PO DAILY [facility] Last Admin: 04/19/17 08:53 Dose: 10 mg Ferrous Sulfate (Feosol) 325 [facility] Last Admin: 04/19/17 19:04 Dose: Not Given Folic Acid (Folvite) 1 mg PO DAILY [facility] Guaifenesin (Robitussin Sf) 200 mg PO Q4H PRN PRN Reason: Cough Hydralazine HCl (Apresoline) 10 mg SLOW IVP Q4H PRN PRN Reason: Systolic BP > 180 Meropenem 1 gm/ Sterile Water 20 mls @ 240 mls/hr IVPB Q8HR [facility] Last Admin: 04/20/17 05:04 Dose: 20 mls Levothyroxine Sodium (Synthroid) 25 mcg PO 0600 [facility] Last Admin: 04/20/17 05:04 Dose: 25 mcg Loratadine (Claritin) 10 mg PO DAILYPRN PRN PRN Reason: Sinus Symptoms Magnesium Hydroxide (Milk Of Magnesium) 30 ml PO DAILYPRN PRN PRN Reason: Constipation Metoprolol Succinate (Toprol Xl) 12.5 mg PO DAILY [facility] Last Admin: 04/19/17 08:53 Dose: 12.5 mg Mineral Oil/White Petrolatum (Eucerin Cream) 0 gm TOP BIDPRN PRN PRN Reason: Dry Skin Mometasone Furoate/Formoterol Fumar (Dulera 200 Mcg/5 Mcg Inhaler) 2 puff INH BID-RT [facility] Last Admin: 04/19/17 20:26 Dose: Not Given Naloxone HCl (Narcan) 0.2 mg IV Q5MIN PRN PRN Reason: Opiate Reversal Ondansetron HCl (Zofran Odt) 4 mg PO Q6H PRN PRN Reason: Nausea/Vomiting Ondansetron HCl (Zofran) 4 mg IVP Q6H PRN PRN Reason: Nausea/Vomiting Last Admin: 04/19/17 19:03 Dose: 4 mg Pantoprazole Sodium (Protonix) 40 mg IVP 0100,0900,1700 [facility] Last Admin: 04/19/17 23:47 Dose: 40 mg Phenol (Chloraseptic [place] 180 Ml Bot) 0 ml PO PRN PRN PRN Reason: Sore Throat Promethazine HCl (Phenergan) 12.5 mg IM Q4H PRN PRN Reason: Nausea/Vomiting Last Admin: 04/17/17 17:37 Dose: 12.5 mg Senna (Senokot) 2 tab PO HSPRN PRN PRN Reason: Constipation Sodium Bicarbonate (Bicarbonate, Sodium) 650 mg PER TUBE .PER PROTOCOL PRN PRN Reason: ENTERAL TUBE OCCLUSION Last Admin: 04/17/17 19:49 Dose: 650 mg Sodium Chloride (Flush - Normal Saline) 10 ml IV 0100,0900,1700 [facility] Last Admin: 04/19/17 23:48 Dose: 10 ml Sodium Chloride (Flush - Normal Saline) 10 ml IVF PRN PRN PRN Reason: Saline Flush Sodium Chloride ([place] Nasal [place] 0.65%) 0 ml EA NARE QIDPRN PRN PRN Reason: Nasal Congestion Tramadol HCl (Ultram) 100 mg PO Q4H PRN PRN Reason: Moderate to Severe Pain (6-10) Tramadol HCl (Ultram) 50 mg PO Q4H PRN PRN Reason: Mild-Moderate Pain (1-5) Last Admin: 04/20/17 05:03 Dose: 50 mg Zolpidem Tartrate (Ambien) 5 mg PO HSPRN PRN PRN Reason: Insomnia
[2017-04-20] MEDS: Pantoprazole 40 MG VIAL IVP SCH ×2 (10:29→17:29)
[2017-04-20] MEDS: Calcium Carbonate 500 MG TAB PO SCH (10:30)
[2017-04-20] MEDS: Folic Acid 1 MG TAB PO SCH (10:30)
[2017-04-20] MEDS: Ferrous Sulfate 325 MG TAB PO SCH ×2 (10:30→17:28)
[2017-04-20] MEDS: Escitalopram Oxalate 10 mg Tablet PO SCH (10:31)
[2017-04-20] MEDS: Ascorbic Acid 500 mg Chewable Tablet PO SCH ×2 (10:31→21:25)
[2017-04-20] MEDS: Aspirin 81 mg Enteric Coated Tablet PO SCH (10:31)
[2017-04-20] MEDS: Mometasone/Formoterol 120 PUFF INHALER INH SCH ×2 (12:12→18:51)
[2017-04-20] MEDS ORDERED: Nystatin 100,000 Units/mL UDCUP SSW SCH (13:00)
[2017-04-20 13:21] LABS: #Eosinphils 0.1 thou/uL (0.0-0.7); #Lymphocytes 0.9 thou/uL (1.20-3.40); #Monocytes 0.4 thou/uL (0.11-0.59); #Neutrophils 8.1 thou/uL (1.40-6.50); %Basophils 0.3 % (0.0-1.0); %Lymphocytes 8.9 % (21.0-51.0); %Monocytes 4.6 % (0.0-10.0); %Neutrophils 85.2 % (42.0-75.0); Hemoglobin 8.2 g/dL (12.0-16.0); Mean Corpuscular HGB CONC 32.1 g/dL (32.0-36.0); Mean Corpuscular Hemoglobin 30.4 pg (27.0-31.0); Mean Corpuscular Volume 94.6 fl (81.0-99.0); Mean Platelet Volume 9.5 fL (7.4-10.4); Platelet Count 151 thou/uL (130-400); RBC Distribution Width 16.1 % (11.5-14.5); Red Blood Cell (RBC) Count 2.72 mill/uL (4.20-5.40); White Blood Cell (WBC) Count 9.5 thou/uL (4.8-10.8)
[2017-04-20 13:40] LABS: Anion Gap 15 mmol/L (10-20); BUN (Urea Nitrogen) 32 mg/dL (9.8-20.1); Calc. Creatinine Clearance 65 mL/min (70-130); Calcium 8.3 mg/dL (7.8-10.44); Carbon Dioxide 20 mmol/L (23-31); Chloride 106 mmol/L (98-107); Estimated GFR-MDRD 58; Glucose 70 mg/dL (83-110); Phosphorus 2.7 mg/dL (2.3-4.7); Potassium 4.5 mmol/L (3.5-5.1); Sodium 136 mmol/L (136-145)
--- NOTE | 2017-04-20 14:12 | PRG ---
DATE OF SERVICE: 04/20/2017 SUBJECTIVE: The patient is postop day #7 from exploratory laparotomy. The patient this morning repo rts just being sore "all over", which she states is due to her arthritis and being in bed frequently. Otherwise, she states her pain is controlled. She is tolerating a clear liquid diet. The patient did have an episode of diarrhea last night after she was given Ensure through her J tube. PHYSICAL EXAMINATION: VITAL SIGNS: Temperature is 97.4, heart rate 93, blood pressure 126/73, respirations 18, oxygen satu ration 95% on room air. HEENT: Unremarkable. LUNGS: Clear to auscultation bilaterally. HEART: Regular rate and rhythm. ABDOMEN: Soft, flat, nontender with active bowel sounds. The patient has two SAMIR drains, which have a small amount of serosanguineous fluid. EXTREMITIES: Neurovascularly intact x4. LABORATORY DATA: White blood cell count 9.5, hemoglobin 8.2, hematocrit 25.7, platelets 151. Sodium 136, potassium 4.5, chloride 106, CO2 20, BUN 32, creatinine 0.94, glucose 70, magnesium 2.0, phosph orus 2.7. There are no radiographs reviewed this morning. ASSESSMENT AND PLAN: 1. Status post exploratory laparotomy. 2. Stable acute blood loss anemia. 3. Hypomagnesemia, resolved. Plan will be to continue supportive care. Clear liquid diet. Physical and occupational therapy and await placement. We will also most likely discontinue her SAMIR drains this morning and they have put o ut 60 and 65 mL respectively. We will recheck labs in the morning. We were also having the nurse kenny anna her home medications to resume any that have not been restarted. This case was discussed with Dr. Larson during rounds this morning.
[2017-04-20] MEDS: Nystatin 500,000 UNITS/5 ML UDCUP SSW SCH ×3 (14:42→21:25)
[2017-04-20] MEDS: Enoxaparin Sodium 40 MG/0.4 ML SYRINGE SC SCH (21:25)
--- NOTE | 2017-04-20 23:00 | PRG ---
DATE OF SERVICE: 04/20/2017 SUBJECTIVE: This is a 76-year-old female postop day 7, exploratory laparotomy and lysis of adhesions . Patient states that pain is controlled. She is tolerating her diet. Nausea and diarrhea from yes terday have resolved with the discontinuation of Ensure. OBJECTIVE: VITAL SIGNS: Reviewed and stable. Patient is afebrile. Resting in bed in no acute distress. Breat renetta is nonlabored. ABDOMEN: Soft, nontender, nondistended. ASSESSMENT AND PLAN: As documented in the daily progress note. Continue care as ordered. Continue to monitor.
[2017-04-21] MEDS: Acetaminophen 500 MG TAB PO SCH ×3 (00:55→12:13)
[2017-04-21] MEDS: Pantoprazole 40 MG VIAL IVP SCH (00:55)
[2017-04-21] MEDS: Levothyroxine Sodium 25 MCG TAB PO SCH (06:02)
[2017-04-21] MEDS: Meropenem 1 GM in Sterile Water 20 ML IVPB SCH (06:02)
[2017-04-21] MEDS: Folic Acid 1 MG TAB PO SCH (08:54)
[2017-04-21] MEDS: Ascorbic Acid 500 mg Chewable Tablet PO SCH (08:54)
[2017-04-21] MEDS: Calcium Carbonate 500 MG TAB PO SCH (08:54)
[2017-04-21] MEDS: Aspirin 81 mg Enteric Coated Tablet PO SCH (08:54)
[2017-04-21] MEDS: Ferrous Sulfate 325 MG TAB PO SCH (08:54)
[2017-04-21] MEDS: Escitalopram Oxalate 10 mg Tablet PO SCH (08:54)
[2017-04-21] MEDS ORDERED: predniSONE 5 MG TAB PO SCH (09:00)
[2017-04-21] MEDS: Nystatin 500,000 UNITS/5 ML UDCUP SSW SCH ×2 (09:04→12:16)
[2017-04-21] MEDS: Mometasone/Formoterol 120 PUFF INHALER INH SCH (09:25)
--- NOTE | 2017-04-21 10:18 | PDOC.PN ---
- Subjective Encounter Start Date: 04/21/17 Encounter Start Time: 08:40 Patient seen and examined. No new complaints. No overnight events - Objective MAR Reviewed: Yes Vital Signs & Weight: Vital Signs (12 hours) Temp Pulse Resp BP Pulse Ox 04/21/17 07:15 98.7 F 94 20 127/74 97 04/21/17 05:07 97.3 F L 95 15 124/69 97 04/21/17 00:15 97.7 F 95 18 161/71 H 95 Weight Admit Weight 178 lb Weight 178 lb 3.2 oz Most Recent Monitor Data Heart Rate from ECG 104 NIBP 136/77 NIBP BP-Mean 78 Respiration from ECG 17 SpO2 95 I&O: 04/20/17 04/21/17 04/22/17 06:59 06:59 06:59 Intake Total 2117 960 Output Total 679 1785 Balance 1438 -825 Result Diagrams: 04/20/17 13:12 04/20/17 13:12 Phys Exam - Physical Examination Constitutional: NAD HEENT: PERRLA, moist MMs, sclera anicteric Neck: no JVD, supple Respiratory: no wheezing, no rales, no rhonchi Cardiovascular: RRR, no significant murmur, no rub Gastrointestinal: soft, non-tender, no distention, positive bowel sounds Musculoskeletal: no edema, pulses present Neurological: non-focal, normal sensation Lymphatic: no nodes Psychiatric: normal affect, A&O x 3 Skin: no rash, normal turgor Dx/Plan (1) Acute abdominal pain Code(s): R10.9 - UNSPECIFIED ABDOMINAL PAIN Status: Resolved Comment: s/p laparotomy (2) Acute kidney failure Status: Resolved (3) Demand ischemia of myocardium Code(s): I24.8 - OTHER FORMS OF ACUTE ISCHEMIC HEART DISEASE Status: Resolved (4) Ischemia, bowel Code(s): K55.9 - VASCULAR DISORDER OF INTESTINE, UNSPECIFIED Status: Acute Comment: treated surgically (5) Lactic acidosis Code(s): E87.2 - ACIDOSIS Status: Resolved (6) Transaminitis Code(s): R74.0 - NONSPEC ELEV OF LEVELS OF TRANSAMNS & LACTIC ACID DEHYDRGNSE Status: Acute (7) Anxiety and depression Code(s): F41.9 - ANXIETY DISORDER, UNSPECIFIED; F32.9 - MAJOR DEPRESSIVE DISORDER, SINGLE EPISODE, UNSPECIFIED Status: Chronic (8) Arthritis, rheumatoid Code(s): M06.9 - RHEUMATOID ARTHRITIS, UNSPECIFIED Status: Chronic (9) CAD (coronary artery disease) Code(s): I25.10 - ATHSCL HEART DISEASE OF [place] CORONARY ARTERY W/O ANG PCTRS Status: Chronic (10) COPD (chronic obstructive pulmonary disease) Status: Chronic (11) Dyslipidemia Code(s): E78.5 - HYPERLIPIDEMIA, UNSPECIFIED Status: Chronic (12) GERD (gastroesophageal reflux disease) Code(s): K21.9 - GASTRO-ESOPHAGEAL REFLUX DISEASE WITHOUT ESOPHAGITIS Status: Chronic (13) Gout Code(s): M10.9 - GOUT, UNSPECIFIED Status: Chronic (14) Hypertension Code(s): I10 - ESSENTIAL (PRIMARY) HYPERTENSION Status: Chronic (15) Moderate aortic stenosis Code(s): I35.0 - NONRHEUMATIC AORTIC (VALVE) STENOSIS Status: Chronic (16) Hypomagnesemia Code(s): E83.42 - HYPOMAGNESEMIA Status: Resolved (17) Jejunostomy tube present Code(s): Z93.4 - OTHER ARTIFICIAL OPENINGS OF GASTROINTESTINAL TRACT STATUS Status: Acute (18) Perforated duodenal ulcer Code(s): K26.5 - CHRONIC OR UNSPECIFIED DUODENAL ULCER WITH PERFORATION Status : Acute Comment: s/p surgical repair (19) Respiratory insufficiency Code(s): R06.89 - OTHER ABNORMALITIES OF BREATHING Status: Resolved (20) S/P exploratory laparotomy Status: Acute (21) S/P small bowel resection Code(s): Z90.49 - ACQUIRED ABSENCE OF OTHER SPECIFIED PARTS OF DIGESTIVE TRACT Status: Acute (22) Small bowel obstruction due to adhesions Code(s): K56.50 - INTESTNL ADHESIONS, UNSP TO PARTIAL VERSUS COMPLETE OBST Status: Acute (23) Status post jejunostomy Code(s): Z93.4 - OTHER ARTIFICIAL OPENINGS OF GASTROINTESTINAL TRACT STATUS Status: Acute (24) Anemia due to acute blood loss Code(s): D62 - ACUTE POSTHEMORRHAGIC ANEMIA Status: Acute (25) Thrombocytopenia Code(s): D69.6 - THROMBOCYTOPENIA, UNSPECIFIED Status: Acute (26) Ileus, postoperative Code(s): K91.89 - OTH POSTPROCEDURAL COMPLICATIONS AND DISORDERS OF DGSTV SYS; K56.7 - ILEUS, UNSPECIFIED Status: Acute - Plan cont current plan of care, renal social worker * stable for discharge as per surgeon * medication reviewed as below * symptomatic treatment * dc to rehab * see discharge evans. Review of Systems - Review of Systems ENT: negative: Ear Pain, Ear Discharge, Nose Pain, Nose Discharge, Nose Congestion, Mouth Pain, Mouth Swelling, Throat Pain, Throat Swelling, Other Respiratory: negative: Cough, Dry, Shortness of Breath, Hemoptysis, SOB with Excertion, Pleuritic Pain, Sputum, Wheezing Cardiovascular: negative: chest pain, palpitations, orthopnea, paroxysmal nocturnal dyspnea, edema, light headedness, other Gastrointestinal: negative: Nausea, Vomiting, Abdominal Pain, Diarrhea, Constipation, Melena, Hematochezia, Other Genitourinary: negative: Dysuria, Frequency, Incontinence, Hematuria, Retention , Other Musculoskeletal: negative: Neck Pain, Shoulder Pain, Arm Pain, Back Pain, Hand Pain, Leg Pain, Foot Pain, Other Skin: negative: Rash, Lesions, Abad, Bruising, Other - Medications/Allergies Allergies/Adverse Reactions: Allergies Allergy/AdvReac Type Severity Reaction Status Date / Time latex Allergy Rash Verified 04/12/17 01:00 neomycin Allergy Hives Verified 04/12/17 01:00 [id number] Reductase Allergy Verified 04/14/17 07:53 Inhibitor Medications: Current Medications Acetaminophen (Tylenol) 1,000 mg PO Q6HR [facility] Last Admin: 04/21/17 06:02 Dose: 1,000 mg Al Hydroxide/Mg Hydroxide (Maalox) 15 ml PO Q4H PRN PRN Reason: Heartburn or Indigestion Albuterol/Ipratropium (Duoneb) 3 ml NEB [id number] [facility] Last Admin: 04/21/17 09:25 Dose: Not Given Alprazolam (Xanax) 0.25 mg PO TIDPRN PRN PRN Reason: Anxiety Last Admin: 04/19/17 21:34 Dose: 0.25 mg Lipase/Protease/Amylase ([place] [id number]) 1 cap FS .PER PROTOCOL PRN PRN Reason: TUBE OCCLUSION PROTOCOL Last Admin: 04/17/17 19:50 Dose: 1 cap Artificial Tears (Tears Naturale) 0 drop EA EYE PRN PRN PRN Reason: Dry Eyes Ascorbic Acid (Vitamin C) 500 mg PO BID [facility] Last Admin: 04/21/17 08:54 Dose: 500 mg Aspirin (Ecotrin) 81 mg PO DAILY [facility] Last Admin: 04/21/17 08:54 Dose: 81 mg Calcium Carbonate (Oscal-500) 500 mg PO DAILY [facility] Last Admin: 04/21/17 08:54 Dose: 500 mg Enoxaparin Sodium (Lovenox) 40 mg SC 2100 [facility] Last Admin: 04/20/17 21:25 Dose: 40 mg Escitalopram Oxalate (Lexapro) 10 mg PO DAILY [facility] Last Admin: 04/21/17 08:54 Dose: 10 mg Ferrous Sulfate (Feosol) 325 mg PO BID-[facility] Last Admin: 04/21/17 08:54 Dose: 325 mg Folic Acid (Folvite) 1 mg PO DAILY [facility] Last Admin: 04/21/17 08:54 Dose: 1 mg Guaifenesin (Robitussin Sf) 200 mg PO Q4H PRN PRN Reason: Cough Hydralazine HCl (Apresoline) 10 mg SLOW IVP Q4H PRN PRN Reason: Systolic BP > 180 Levothyroxine Sodium (Synthroid) 25 mcg PO 0600 [facility] Last Admin: 04/21/17 06:02 Dose: 25 mcg Loratadine (Claritin) 10 mg PO DAILYPRN PRN PRN Reason: Sinus Symptoms Magnesium Hydroxide (Milk Of Magnesium) 30 ml PO DAILYPRN PRN PRN Reason: Constipation Metoprolol Succinate (Toprol Xl) 12.5 mg PO DAILY [facility] Last Admin: 04/21/17 08:55 Dose: 12.5 mg Mineral Oil/White Petrolatum (Eucerin Cream) 0 gm TOP BIDPRN PRN PRN Reason: Dry Skin Mometasone Furoate/Formoterol Fumar (Dulera 200 Mcg/5 Mcg Inhaler) 2 puff INH BID-RT [facility] Last Admin: 04/21/17 09:25 Dose: Not Given Naloxone HCl (Narcan) 0.2 mg IV Q5MIN PRN PRN Reason: Opiate Reversal Nystatin (Mycostatin) 500,000 units SSW QID [facility] Last Admin: 04/21/17 09:04 Dose: 500,000 units Ondansetron HCl (Zofran Odt) 4 mg PO Q6H PRN PRN Reason: Nausea/Vomiting Ondansetron HCl (Zofran) 4 mg IVP Q6H PRN PRN Reason: Nausea/Vomiting Last Admin: 04/19/17 19:03 Dose: 4 mg Pantoprazole Sodium (Protonix) 40 mg PO BID [facility] Last Admin: 04/21/17 08:55 Dose: 40 mg Phenol (Chloraseptic Lena 180 Ml Bot) 0 ml PO PRN PRN PRN Reason: Sore Throat Prednisone (Prednisone) 10 mg PO BID [facility] Last Admin: 04/21/17 08:54 Dose: 10 mg Promethazine HCl (Phenergan) 12.5 mg IM Q4H PRN PRN Reason: Nausea/Vomiting Last Admin: 04/17/17 17:37 Dose: 12.5 mg Senna (Senokot) 2 tab PO HSPRN PRN PRN Reason: Constipation Sodium Bicarbonate (Bicarbonate, Sodium) 650 mg PER TUBE .PER PROTOCOL PRN PRN Reason: ENTERAL TUBE OCCLUSION Last Admin: 04/17/17 19:49 Dose: 650 mg Sodium Chloride (Flush - Normal Saline) 10 ml IV 0100,0900,1700 [facility] Last Admin: 04/21/17 08:56 Dose: 10 ml Sodium Chloride (Flush - Normal Saline) 10 ml IVF PRN PRN PRN Reason: Saline Flush Sodium Chloride ([place] Nasal Lena 0.65%) 0 ml EA NARE QIDPRN PRN PRN Reason: Nasal Congestion Tramadol HCl (Ultram) 100 mg PO Q4H PRN PRN Reason: Moderate to Severe Pain (6-10) Tramadol HCl (Ultram) 50 mg PO Q4H PRN PRN Reason: Mild-Moderate Pain (1-5) Last Admin: 04/20/17 05:03 Dose: 50 mg Zolpidem Tartrate (Ambien) 5 mg PO HSPRN PRN PRN Reason: Insomnia
--- NOTE | 2017-04-21 12:53 | DIS ---
DATE OF ADMISSION: 04/11/2017 DATE OF DISCHARGE: 04/21/2017 PRIMARY CARE PHYSICIAN: Dr. Lesly Collins. DISCHARGE DISPOSITION: [facility]. PRIMARY DISCHARGE DIAGNOSES: 1. Perforated duodenal ulcer. 2. Acute abdomen. 3. Ischemic bowel. 4. Status post laparotomy and repair of duodenal ulcer. 5. Jejunostomy tube placement. 6. Anemia due to acute blood loss. 7. Postoperative ileus. 8. Status post small bowel resection. 9. Small bowel obstruction due to adhesions. 10. Status post adhesiolysis. 11. Jejunostomy. 12. Transaminitis due to sepsis. 13. Thrombocytopenia due to sepsis. 14. Sepsis with acute organ dysfunction. 15. Acute kidney failure. 16. Demand ischemia of myocardium. 17. Lactic acidosis, resolved. 18. Hypomagnesemia, resolved. 19. Respiratory insufficiency, resolved. SECONDARY DISCHARGE DIAGNOSES: 1. Anxiety and depression. 2. Rheumatoid arthritis. 3. Coronary artery disease. 4. Chronic obstructive pulmonary disease. 5. Dyslipidemia. 6. Gastroesophageal reflux disease. 7. Gout. 8. Hypertension. 9. Moderate aortic stenosis. 10. Physical deconditioning. PRIMARY PROCEDURE/OPERATION: Dr. Larson did central line placement. Dr. Barrios did EGD, diagnostic int raoperative and flexible sigmoidoscopy, diagnostic intraoperative found with bowel perforation. Dr. Larson did laparotomy, adhesiolysis, duodenal ulcer repair, small bowel resection and jejunojejunostom y, jejunojejunostomy tube placement, endotracheal intubation and mechanical ventilatory support. RADIOLOGICAL INVESTIGATION: Abdomen and pelvis CT scan on admission showed abnormal gas within the w all of the fourth portion of duodenum concerning for necrosis and microperforation from ischemia. Mclean bsequently, the patient had abdomen x-ray and Chest x-ray. SIGNIFICANT LABORATORY DATA: Labs by the time of discharge, WBC 9.5, hemoglobin 8.2, platelets 151. Sodium 136, potassium 4.5, BUN 32, creatinine 0.94, calcium 8.3, phosphorus 2.7, magnesium 2.0. BNP 121.6. Urinalysis unremarkable. Blood culture negative. DISCHARGE MEDICATIONS: Patient is advised to continue all her previous medication, allopurinol 200 m g p.o. daily, aspirin 81 mg p.o. daily, calcium carbonate 500 mg p.o. daily, Lexapro 10 mg p.o. daily , folic acid 1 mg p.o. daily, Lasix 10 mg p.o. every other day, Synthroid 25 mcg p.o. daily, lisinopr il 10 mg p.o. daily, methotrexate 7.5 mg every 7 days, Toprol-XL 12.5 mg p.o. daily, midodrine 5 mg t .i.d., Dulera 2 puffs inhalation daily, multivitamin 1 tablet p.o. daily, omeprazole 20 mg p.o. daily , Ranexa 1000 mg p.o. b.i.d., multivitamin 1 tablet p.o. daily. CONTRAINDICATIONS: None. CODE STATUS: FULL CODE. INPATIENT CONSULTANTS: Dr. Barrios was consulted while in hospital. Dr[facility] saw this patient, because patient was in ICU. TEST RESULTS PENDING ON DISCHARGE: None. ALLERGIES: LATEX, NEOMYCIN, STATIN. DISCHARGE PLAN: Post hospital, the patient is discharged to [facility] for more PT, OT and mclean bsequently the patient will follow up with Dr. Larson. HOSPITAL COURSE: A 76-year-old female who was admitted by Dr. Johnson on 04/11/2017. Please se e his H&P for further details. The patient was having acute abdominal pain. CT of the abdomen and p bushra showed fourth portion of duodenum ischemic necrosis and gas. The patient had duodenal perforat ion. The patient required central line placement and emergent surgery with laparotomy, adhesiolysis, duodenal ulcer repair, J tube placement and small bowel resection with primary jejunojejunostomy. T his was done by Dr. Larson. The patient also had intraoperative upper and lower endoscopy. After surgery, the patient was in CCU, intubated for respiratory insufficiency. Critical Care was ma naged by Dr. Larson. Upon stabilization, the patient was extubated and subsequently transferred to mclean rgical floor. Patient was getting J tube feeding. Patient also had postoperative ileus that was resolved. Her ronaldo ctrolytes, we corrected while in hospital. The patient had two SAMIR drain, surgical site was covered w ith vacuum. She also had J tube placed and she had central line placed. Patient was also given Lasi x for volume overload. All electrolytes were corrected periodically while in hospital. At this point, patient is surgically stable for discharge as per surgeon, and patient is medically st able for discharge. While in hospital, she was getting meropenem entire period. At this point, the patient does not need any antibiotic therapy. Patient will resume all her previous medication, which she was taking prior to arrival to the hospital. The patient has approval for inpatient rehabilitation. Patient needs aggressive PT, OT and postopera tive care at the rehabilitation facility. The patient is seen and examined at bedside today. Please see my progress note from today for furthe r details. Total time spent on discharge day more than 30 minutes.
[2017-04-21 12:55] VITALS: BP 135/74; TEMP 98.9
== END 2017-04-21 13:50 | DRG 853 ==
LOC: ERS 16:50 → IMCU/EMU 22:57 → CCU 04-12 16:36 → SURG B 04-13 19:28
PROVIDERS: ADMIT Internal Medicine; ATTEND Internal Medicine
PROC: 02HV33Z Insertion of Infusion Device into Superior Vena Cava, Percutaneous Approach (ICD-10-PCS; 2017-04-11)
PROC: 0DQ90ZZ Repair Duodenum, Open Approach (ICD-10-PCS; principal; 2017-04-12)
PROC: 0W9F00Z Drainage of Abdominal Wall with Drainage Device, Open Approach (ICD-10-PCS; 2017-04-12)
PROC: 0DU907Z Supplement Duodenum with Autologous Tissue Substitute, Open Approach (ICD-10-PCS; 2017-04-12)
PROC: 0DN80ZZ Release Small Intestine, Open Approach (ICD-10-PCS; 2017-04-12)
PROC: 0DB80ZZ Excision of Small Intestine, Open Approach (ICD-10-PCS; 2017-04-12)
PROC: 0DNL0ZZ Release Transverse Colon, Open Approach (ICD-10-PCS; 2017-04-12)
PROC: 0DNF0ZZ Release Right Large Intestine, Open Approach (ICD-10-PCS; 2017-04-12)
PROC: 0DHA3UZ Insertion of Feeding Device into Jejunum, Percutaneous Approach (ICD-10-PCS; 2017-04-12)
PROC: 0DJ08ZZ Inspection of Upper Intestinal Tract, Via Natural or Artificial Opening Endoscopic (ICD-10-PCS; 2017-04-12)
PROC: 0DJD8ZZ Inspection of Lower Intestinal Tract, Via Natural or Artificial Opening Endoscopic (ICD-10-PCS; 2017-04-12)
PROC: 5A1945Z Respiratory Ventilation, 24-96 Consecutive Hours (ICD-10-PCS; 2017-04-12)
PROC: 30233N1 Transfusion of Nonautologous Red Blood Cells into Peripheral Vein, Percutaneous Approach (ICD-10-PCS; 2017-04-14)
DX: A41.9 Sepsis, unspecified organism (principal); K26.5 Chronic or unspecified duodenal ulcer with perforation; K56.51 Intestinal adhesions [bands], with partial obstruction; N17.9 Acute kidney failure, unspecified; K55.9 Vascular disorder of intestine, unspecified; E46 Unspecified protein-calorie malnutrition; D62 Acute posthemorrhagic anemia; E87.2 Acidosis; I24.8 Other forms of acute ischemic heart disease; K91.89 Other postprocedural complications and disorders of digestive system; K56.7 Ileus, unspecified; E83.39 Other disorders of phosphorus metabolism; D69.6 Thrombocytopenia, unspecified; R65.20 Severe sepsis without septic shock; E83.42 Hypomagnesemia; E86.0 Dehydration; J44.9 Chronic obstructive pulmonary disease, unspecified; F41.8 Other specified anxiety disorders; M06.9 Rheumatoid arthritis, unspecified; E78.5 Hyperlipidemia, unspecified; K21.9 Gastro-esophageal reflux disease without esophagitis; M10.9 Gout, unspecified; I10 Essential (primary) hypertension; I35.0 Nonrheumatic aortic (valve) stenosis; I25.10 Atherosclerotic heart disease of native coronary artery without angina pectoris; R74.0 Nonspecific elevation of levels of transaminase and lactic acid dehydrogenase [LDH]; Z95.1 Presence of aortocoronary bypass graft; E03.9 Hypothyroidism, unspecified; G47.33 Obstructive sleep apnea (adult) (pediatric); Y83.8 Other surgical procedures as the cause of abnormal reaction of the patient, or of later complication, without mention of misadventure at the time of the procedure; Z68.27 Body mass index [BMI] 27.0-27.9, adult
CPT/HCPCS: 36415; 36430; 36556; 51702; 71010; 71045; 74000; 74018; 74176; 74178; 74250; 80048; 80053; 81003; 81015; 82553; 82805; 83605; 83690; 83735; 83880; 84100; 85014; 85018; 85025; 86850; 86900; 86901; 87040; 88307; 93005; 94002; 94003; 94640; 94664; 94760; 96361; 96374; 96375; A4216; A4353; C9113; G8978-GP-CL; G8979-GP-CJ; G8987-GO-CM; G8988-GO-CK; G8996-GN-CJ; G8997-GN-CI; J0131; J1170; J1644; J1650; J1720; J1815; J1940; J2001; J2185; J2250; J2270; J2405; J2550; J2704; J3010; J3475; J7050; J7070; J7620; P9016; P9045; P9047

== ENCOUNTER 2017-04-28 10:46 | Inpatient (IN) | payer MEDICARE, OTHER ==
[2017-04-28 11:32] LABS: #Lymphocytes 0.3 thou/uL (1.20-3.40); #Monocytes 0.1 thou/uL (0.11-0.59); #Neutrophils 1.2 thou/uL (1.40-6.50); %Basophils 0.5 % (0.0-1.0); %Lymphocytes 17.1 % (21.0-51.0); %Monocytes 6.2 % (0.0-10.0); %Neutrophils 76.3 % (42.0-75.0); Hemoglobin 9.3 g/dL (12.0-16.0); Mean Corpuscular HGB CONC 31.7 g/dL (32.0-36.0); Mean Corpuscular Hemoglobin 29.7 pg (27.0-31.0); Mean Corpuscular Volume 93.6 fl (81.0-99.0); Mean Platelet Volume 7.8 fL (7.4-10.4); Platelet Count 372 thou/uL (130-400); RBC Distribution Width 16.5 % (11.5-14.5); Red Blood Cell (RBC) Count 3.14 mill/uL (4.20-5.40); White Blood Cell (WBC) Count 1.5 thou/uL (4.8-10.8)
[2017-04-28 11:46] LABS: Bilirubin Small (Negative); Blood, Urine Negative (Negative); Clarity CLOUDY (Clear); Glucose, Urine (Dipstick) Negative (Negative); Leukocyte Negative (Negative); Nitrite Negative (Negative); Protein, Urine (Dipstick) Trace mg/dL (Neg-Trace); Specific Gravity, Urine 1.022 (1.002-1.036); Urobilinogen 0.2 mg/dL (0.2-1.0)
[2017-04-28 12:02] LABS: ALT (SGPT) 24 U/L (8-55); AST (SGOT) 56 U/L (5-34); Albumin 2.3 g/dL (3.4-4.8); Alkaline Phosphatase 99 U/L (40-150); Anion Gap 17 mmol/L (10-20); BUN (Urea Nitrogen) 60 mg/dL (9.8-20.1); Bilirubin, Total 0.9 mg/dL (0.2-1.2); Calc. Creatinine Clearance 0 mL/min (70-130); Calcium 8.7 mg/dL (7.8-10.44); Carbon Dioxide 20 mmol/L (23-31); Chloride 100 mmol/L (98-107); Estimated GFR-MDRD 19; Globulin 3.6 g/dL (2.4-3.5); Glucose 78 mg/dL (83-110); Lipase 108 U/L (8-78); Potassium 5.1 mmol/L (3.5-5.1); Protein, Total 5.9 g/dL (6.0-8.3); Sodium 132 mmol/L (136-145)
[2017-04-28] MEDS ORDERED: Piperacillin/Tazobactam 4.5 GM in Sodium Chloride 0.9% 100 ML IVPB ONE (12:45)
[2017-04-28] MEDS ORDERED: Vancomycin HCl 1.25 GM in Sodium Chloride 0.9% 250 ML 250 ML IVPB SCH (12:45)
[2017-04-28] MEDS ORDERED: Clindamycin/D5W 900 mg/50 ml Premix Bag ONE (13:28)
[2017-04-28] MEDS ORDERED: Clindamycin/D5W 900 MG in Premix Bag 1 BAG IVPB ONE (13:30)
--- NOTE | 2017-04-28 13:48 | RAD ---
ACUTE ABDOMINAL SERIES: Date: 04/28/17 PROVIDED CLINICAL HISTORY: Sepsis. FINDINGS: Comparison made with the CTA examination performed 04/27/17 of the abdomen and pelvis, and chest radi ograph performed 04/18/17. Cardiac and mediastinal silhouette is unchanged in appearance. Left upper extremity PICC line or cent ral line is noted with tip overlying the expected location of the SVC. There are areas of scarring or atelectasis at both lung bases, appearing similar to the prior chest radiograph. Jejunostomy tube is noted overlying the left hemiabdomen. Contrast material is seen within the colon from recent CT examination. Cutaneous shakeel overlie the midline. Free intraperitoneal air is again noted, presumably postsurgical in nature. The abdominal bowel gas pattern is nonspecific. IMPRESSION: 1. Pneumoperitoneum, presumably postsurgical. 2. No evidence for an acute cardiopulmonary process. POS: [facility]
[2017-04-28] MEDS ORDERED: Ondansetron HCl/PF 4 MG/2 ML Vial ONE (13:57)
[2017-04-28] MEDS ORDERED: Morphine 2 MG/ML SYRINGE ONE (13:57)
[2017-04-28] MEDS ORDERED: GRANIX 300 MCG/0.5 ML VIAL SC SCH (14:00)
[2017-04-28 14:11] LABS: Lactic Acid 1.6 mmol/L (0.5-2.2)
[2017-04-28] MEDS ORDERED: Sodium Chloride 0.9% 1,000 ML IV SCH ×2 (16:34→18:45)
[2017-04-28] MEDS ORDERED: Ondansetron HCl/PF 4 MG/2 ML Vial IVP PRN ×2 (16:34→16:53)
[2017-04-28] MEDS ORDERED: Acetaminophen 325 MG TAB PO PRN (16:34)
[2017-04-28] MEDS ORDERED: Ondansetron ODT 4 MG TAB SL PRN (16:34)
[2017-04-28] MEDS ORDERED: Morphine 2 MG/ML SYRINGE SLOW IVP PRN ×2 (16:34→16:57)
[2017-04-28] MEDS ORDERED: Senokot 8.6 MG TAB PO PRN (16:53)
[2017-04-28] MEDS ORDERED: Calcium Carbonate 500 MG ChewTAB PO PRN (16:53)
[2017-04-28] MEDS ORDERED: Bisacodyl 5 MG TAB PO PRN (16:53)
[2017-04-28] MEDS ORDERED: Mag-Al 1200 mg/1200 mg/30 ML UDCUP PO PRN (16:53)
[2017-04-28] MEDS: Sodium Chloride 0.9% 1,000 ML IV SCH (17:15)
[2017-04-28 17:56] VITALS: BP 85/38
[2017-04-28 18:32] LABS: Troponin I 0.344 ng/mL (< 0.028)
[2017-04-28] MEDS ORDERED: Fluconazole In NaCl,Iso-Osm 200 MG in Premix Bag 1 BAG IVPB SCH ×2 (19:00)
[2017-04-28] MEDS: Albumin 25% 25 GM/100 ML BOT IVPB SCH (20:08)
[2017-04-28] MEDS: Heparin 5,000 UNITS/ML VIAL SC SCH (20:44)
[2017-04-28 20:56] LABS: Critical Call Chem Troponin I RESULT DECREASING; Troponin I 0.323 ng/mL (< 0.028)
[2017-04-28] MEDS ORDERED: Famotidine 20 MG TAB PO SCH (21:00)
[2017-04-28] MEDS ORDERED: Piperacillin/Tazobactam 2.25 GM in Sodium Chloride 0.9% 100 ML IVPB SCH (21:30)
--- NOTE | 2017-04-28 22:25 | CON ---
DATE OF CONSULTATION: 04/28/2017 SERVICE: Pulmonary Medicine. REASON FOR CONSULTATION: IMCU patient. HISTORY OF PRESENT ILLNESS: The patient is a 76-year-old white female with past medical history sign ificant for recent cholecystectomy. She was in her usual state of health until she started having in creasing abdominal discomfort. She presented to the hospital and was found to have lactic acidosis. A central line was placed to resuscitate her. The following day, she was taken to the operating janice m where she underwent an exploratory laparotomy with extensive lysis of adhesions. A feeding jejunos shabnam was placed. A suspected bowel perforation in the fourth portion was oversewn. The hospital sta y was complicated by multiple episodes of ileus. She required an NG tube to be placed to suction on at least 3 separate occasions. Her goal was slow to clear. Ultimately, she was tolerating feedings. She was discharged to a rehabilitation center on the 04/21/2017. She started having increasing abdom inal discomfort, and findings consistent with possible sepsis. She had purulent drainage coming from her jejunostomy site. This was cultured and apparently was remarkable. Repeat CT scan was performe d yesterday demonstrating extensive soft tissue emphysematous change at the side of the jejunostomy t ube. The patient has not been able to tolerate any p.o., so my suspicion is, the contrast was delive red via the jejunostomy drain. There was no obvious leak. There was retrograde flow of the contrast into the stomach which remains distended with significant amounts of fluid. There was also contrast extravasated down to the rectum. Because of increasing weakness and poor blood pressures, she was s ubsequently brought to the emergency department. Broad spectrum antibiotics were initiated. Her [facility] te blood cell count was low and she ultimately got a dose of Neupogen in the emergency department. E ither way, she got tucked into the IMCU. She is currently septic appearing and is not able to provid e any additional elements of the history. She is visibly uncomfortable. PAST MEDICAL HISTORY: 1. Chronic kidney disease. 2. Coronary artery disease. 3. Aortic stenosis. 4. Hypertension. 5. Dyslipidemia. 6. Hypothyroidism. 7. Obstructive sleep apnea. 8. Gastroesophageal reflux disease. 9. Rheumatoid arthritis with history of steroid-induced myopathy. PAST SURGICAL HISTORY: 1. Coronary artery bypass graft. 2. Cholecystectomy. 3. Hysterectomy. 4. Bilateral knee surgeries. 5. Bilateral shoulder surgeries. 6. History of colon surgeries, multiple. 7. Exploratory laparotomy for lysis of adhesions, and oversew of a perforated fourth duodenum. SOCIAL HISTORY: Negative for alcohol, tobacco or illicit drug use. She is and previously li yi by her daughter. Recently, she had been rehabilitating at [facility]. FAMILY HISTORY: Noncontributory. ALLERGIES: NEOMYCIN, STATINS. MEDICATIONS: List of inpatient medications were reviewed. Multiple updates were made at this time. REVIEW OF SYSTEMS: Cannot be obtained as the patient is currently encephalopathic. PHYSICAL EXAMINATION: VITAL SIGNS: Afebrile, pulse is 94, blood pressure 127/74, respirations 20, saturation 97% on room a ir. GENERAL: The patient is awake, but uncomfortable. She is encephalopathic. She is in moderate distr ess secondary to discomfort. HEENT: Normocephalic, atraumatic. Sclerae are white, conjunctivae pink. Oral and nasal mucosa is m oist without lesions. LUNGS: Decent air entry. I do not appreciate crackles or prolonged expiratory phase. HEART: Normal rate, regular. ABDOMEN: Distended. Painful to palpation. There is rebound tenderness. She does not have any guar ding. Bowel sounds are hypoactive. GENITOURINARY: Hancock catheter in place. NEUROLOGIC: Grossly nonfocal. LABORATORY DATA: WBC 1.5, hemoglobin 9.3, platelets 372,000. Neutrophils 76%. INR 1.0, creatinine 2.46, BUN 60. Basic metabolic profile is otherwise unremarkable. Lactate 1.6. Liver function studi es are unremarkable. Lipase is normal. Troponin 0.29. PEG tube is growing Klebsiella pneumonia spe cies, Enterococcus species, as well as gram negative rods. The Klebsiella is sensitive to just about everything. IMAGIN. CT of the abdomen and pelvis from yesterday demonstrates recent operative changes of the abdomen with no evidence of bowel obstruction or leak. As previously noted, there is some subcutaneous gas i n the area of the jejunostomy tube. No extravasation of contrast is noted. The stomach is distended with fluid including contrast which likely got there from a retrograde fashion. 2. Abdominal x-ray demonstrates nonspecific bowel gas pattern. 3. Recent acute abdominal series demonstrates no acute cardiopulmonary abnormality. There is a left -side subclavian central venous catheter in good position. There was pneumoperitoneum identified, po ssibly post-surgical. There is a large staple line that is midline. A feeding jejunostomy tube was identified. ASSESSMENT: 1. Severe sepsis. 2. Cellulitis of the subcutaneous tissue. 3. Pneumoperitoneum, status post surgery 2 weeks ago. 4. Acute kidney injury. 5. Leukopenia secondary to severe sepsis. 6. Hyponatremia. PLAN: The patient is going to be given another liter of fluid. We will continue maintenance doses o f fluid at 75 mL per hour. We will continue her Zosyn. I am going to empirically add antifungal cov erage. The central line has been in place since the 04/10 and will need to be interrupted as soon as possible. Pulmonary Critical Care will continue to follow. Dr. Porter will assume coverage in the md rning.
[2017-04-29] MEDS: Albumin 25% 25 GM/100 ML BOT IVPB SCH (00:13)
--- NOTE | 2017-04-29 00:26 | HP ---
HISTORY OF PRESENT ILLNESS: This is a 76-year-old female with a past medical history significant for rheumatoid arthritis who recently was admitted to the hospital approximately 2 to 3 weeks ago for pe rforated duodenal ulcer, acute abdomen, ischemic bowel, status post laparotomy and repair of the duod enal ulcer, J-tube placement, as well as a postoperative ileus, who had improved from the particular long hospital stay and was discharged to [facility] for rehabilitation. The patient was apparently doing well there up until the patient has recently became more altered as well as complaining of abdo eduarda pain. Patient was also found to apparently have an elevated temperature. At the [facility], temperature is unknown at this time. Due to abdominal pain and altered mental status as well as a recent history of a significant hospital stay with significant for surgery done at that time, she wa s sent to the hospital for further evaluation and management. While here in the hospital, the karthikeyan hernandez was seen by our General Surgery team and I felt that at this point that there was no surgical inter vention is required at this time. Her complaint right now is still of diffuse abdominal pain, she de scribes it as sharp in nature and rates it about 5/10. Otherwise, she complains also some apparent c onstipation. She, at this time, is appears to not be completely with it and history was poor, so his tory was gathered. Most of this history was gathered from the ER doctor as well as records from [facility]. While being sent here, the patient had a central line that was in place. She also was foun d to have J-tube with greenish colored discharge from that tube. There was concern for cellulitis of the underlying abdominal wall as per Surgery. Patient was placed on IV antibiotics with vancomycin, clindamycin as well as Zosyn. PAST MEDICAL HISTORY: See HPI. Other past medical history includes hypothyroidism, hypertension. PAST SURGICAL HISTORY: Please see HPI for significant past surgical history, otherwise include CABG. SOCIAL HISTORY: Patient denies any tobacco or recreational drug use or alcohol abuse. REVIEW OF SYSTEMS: Cannot be obtained thoroughly due to the patient's altered mental status at this time. Home medications HOME MEDICATION: at this time. DRUG ALLERGIES. NEOMYCIN, LASIX as well as STATINS. PHYSICAL EXAMINATION: VITAL SIGNS: While in the ER, blood pressure is 101/61, pulse is 92, respiratory rate is 35. Patien t is satting 96% oxygen on room air, temperature was 98.2. GENERAL: Patient appeared to be in no apparent distress, had completely anasarca. Appeared to be le thargic, but was awake. Oriented to person, but not to place or time. HEENT: Head normocephalic, atraumatic. Eyes: Pupils are round and reactive to light. Extraocular muscles are intact. Conjunctivae was pink. Sclerae was nonicteric. Mouth: Oral mucosa is pink and moist. No erythematous was noted. NECK: Supple, no JVD, carotid bruits or lymphadenopathy. CARDIOVASCULAR: Regular rate and rhythm. S1, S2 sounds are heard. No S3, no S4. RESPIRATORY: Clear to auscultation bilaterally. No added sounds. Patient was tachypneic, but no us e of accessory muscles. ABDOMEN: Patient's abdomen was diffusely tender. No guarding or rebound. The J-tube was appreciate d with green discharge that could be appreciated from the tube. We could see the recent incision. T he anterior aspect of the abdomen where shakeel are in place. No discharge could be seen from this a mikal. EXTREMITIES: Pulses were hard to find, but could appreciate the pulses, they were hard to find due t o the edema of the extremities bilaterally as well as upper extremities as well. LABORATORY DATA: White blood cell count was 1.5, hemoglobin 9.3, hematocrit was 29.4, platelet count was 372. Sodium was 132, potassium 5.1, chloride was 100, bicarbonate was 20, BUN was 60, creatinin e was 2.46, glucose of 78. Lactic acid is 1.6, troponin was 0.290. IMAGING: Pneumoperitoneum could be appreciated presumably due to post-surgical. Otherwise, no other findings could be appreciated. A CT scan of the abdomen was done yesterday, which showed recent ope rative changes of the abdomen, otherwise no evidence of bowel obstruction or leak. ASSESSMENT AND PLAN: 1. Sepsis as evidenced by leukopenia with tachypnea as well as a concern for cellulitis of the abdom en. Currently, the patient is hemodynamically stable. Surgery has already seen the patient for any surgical intervention that may be require for which the patient does not needed at this time. Theref ore, they will continue to monitor from this point on. Patient has already received vancomycin as we ll as clindamycin and Zosyn while in the ER. We will continue Zosyn as well as vancomycin to help an d we will have pharmacy help to dose with renal function. We will monitor blood cultures and monitor the patient closely for any deterioration that may require an upgrade to ICU from IMCU status. We w ill also have pain management control as needed for the patient. 2. Acute renal failure likely secondary to this septic-type picture. Patient has already received f luids while in the ER. We will monitor closely. We will be gentle with how much fluids we give her due to the anasarca. Part of this anasarca is likely due to low albumin levels. We have consulted N ephrology as well as for their expertise to help facilitate the improvement of her kidneys. We appre ciate their help. We will monitor I's and O's. We will place a Hancock catheter as well. 3. Leukopenia, possibly due to the septic-type picture; however, the patient has been on immunosuppr essive therapy with both prednisone as well as methotrexate. We will consult Hematology for expertis e to help decide if the patient's immune system needs a boost due to the underlying infectious etiolo gy that is currently ongoing at this time. We will follow with recommendations accordingly. 4. History of rheumatoid arthritis, on prednisone as well as methotrexate. We will continue for the time being due to concern for adrenal suppression if stopped at this time. 5. Hypertension. 6. Elevated troponin. Likely due to demand ischemia with septic-type picture at this time. No conc rosana for cardiac etiology. Therefore, we will not continue to pursue at this time. We will just yi tor accordingly. 7. History of duodenal ulcer, ischemic bowel, postoperative ileus - we will monitor. 8. History of anemia due to acute blood loss. H&H is stable at this time. We will monitor. 9. Coronary artery disease. We will continue home medications. 10. Hypertension. Resume home medications. 11. Deep venous thrombosis prophylaxis. We will place the patient on heparin. Also, patient is FUL L CODE.
[2017-04-29] MEDS: Piperacillin/Tazobactam 2.25 GM in Sodium Chloride 0.9% 100 ML IVPB SCH ×4 (03:45→21:41)
[2017-04-29 05:17] LABS: ALT (SGPT) 20 U/L (8-55); AST (SGOT) 60 U/L (5-34); Albumin 2.7 g/dL (3.4-4.8); Alkaline Phosphatase 72 U/L (40-150); Anion Gap 18 mmol/L (10-20); BUN (Urea Nitrogen) 62 mg/dL (9.8-20.1); Calc. Creatinine Clearance 25 mL/min (70-130); Calcium 8.1 mg/dL (7.8-10.44); Carbon Dioxide 18 mmol/L (23-31); Chloride 104 mmol/L (98-107); Estimated GFR-MDRD 17; Globulin 2.8 g/dL (2.4-3.5); Glucose 67 mg/dL (83-110); Protein, Total 5.5 g/dL (6.0-8.3); Sodium 135 mmol/L (136-145)
[2017-04-29 06:30] LABS: Acanthocytes SLIGHT = 1-5 cells (100X) (None Seen); Anisocytosis MODERATE=16-30 cells (100X) (0-5/hpf); Band 42 % (5-11); Hemoglobin 6.6 g/dL (12.0-16.0); Lymphocytes 4 % (21-51); MDiff Complete? YES; Mean Corpuscular HGB CONC 31.9 g/dL (32.0-36.0); Mean Corpuscular Hemoglobin 29.9 pg (27.0-31.0); Mean Corpuscular Volume 93.7 fl (81.0-99.0); Metamyelocyte 2 % (0-0); Monocytes 4 % (0-10); Neutrophil 48 % (42-75); PLT Morphology Comment Appears Adequate; Platelet Count 324 thou/uL (130-400); RBC Distribution Width 16.6 % (11.5-14.5); Schistocytes SLIGHT = 2-5 cells (100X) (0-1/hpf); White Blood Cell (WBC) Count 10.7 thou/uL (4.8-10.8)
[2017-04-29] MEDS: Fluconazole In NaCl,Iso-Osm 100 MG in Premix Bag 1 BAG IVPB SCH ×2 (09:01)
[2017-04-29] MEDS: Aspirin 300 MG Suppository PR SCH (09:01)
[2017-04-29] MEDS: Heparin 5,000 UNITS/ML VIAL SC SCH ×3 (09:03→21:40)
[2017-04-29] MEDS: Pantoprazole 40 MG VIAL IVP SCH (09:04)
[2017-04-29] MEDS ORDERED: Dextrose 5% in Water 1,000 ML IV SCH (10:00)
--- NOTE | 2017-04-29 11:44 | CON ---
DATE OF CONSULTATION: 04/29/2017 SERVICE: Renal Medicine. HISTORY OF PRESENT ILLNESS: Ms. Millan is a 76-year-old white female who was admitted for possible prosper lulitis/sepsis - with redness of the skin around the J-tube area. We are now being consulted for her acute kidney injury. This patient has history of decreased p.o. intake while she was at the [facility]. REVIEW OF SYSTEMS: Decreased appetite, decreased energy level. No chest pain, no shortness of breat h, no nausea, no vomiting, no fever or chills, no diarrhea, no constipation, no gross hematuria, no d ysuria, no urinary frequency. MEDICATIONS: Currently on aspirin 300 mg tab daily, fluconazole 100 mg IV daily, heparin 5000 units subcu daily, Solu-Medrol 40 mg IV q.12 hours, Levophed drip, Zofran p.r.n., Zosyn 2.25 grams IV q.6 h ours, normal saline at 50 mL per hour, status post albumin infusion. PAST MEDICAL HISTORY: Includes the following: History of perforated duodenal ulcer/acute abdomen, ch ronic anemia status post transaminitis during the last hospitalization, status post acute kidney inju ry, history of coronary artery disease, rheumatoid arthritis, anxiety, GERD, gout, hypertension, COPD , moderate aortic stenosis. PAST SURGICAL HISTORY: Status post jejunostomy tube placement, status post exploratory laparotomy, s tatus post repair of duodenal ulcer. SOCIAL HISTORY: The patient is , 2 children with one diseased, lives alone, recently was admi tted at [facility]. Education, high school. Retired clothing sales assistant. Currently, no his tory of smoking. No alcohol intake. No IV drug abuse. Status post blood transfusion. ALLERGIES: NEOMYCIN. TRAUMA: None. IMMUNIZATIONS: Not up to date. HOSPITALIZATIONS: Please see past medical history. FAMILY HISTORY: Noncontributory. PHYSICAL EXAMINATION: VITAL SIGNS: Blood pressure is 122/49, heart rate 72, respiratory rate 16, O2 sat is 98%. GENERAL: Awake, lethargic, not in overt distress. SKIN: Adequate turgor. HEENT: Pale conjunctivae, anicteric sclerae. NECK: No neck mass, no carotid bruits, no JVD. CHEST: No deformities. LUNGS: Clear breath sounds. No wheezing, no crackles. HEART: Normal sinus rhythm. No murmur, no gallops, no rubs. ABDOMEN: Globular, soft, nontender. No masses. EXTREMITIES: No edema, no deformities. LABORATORY DATA: Of 04/29/2017, sodium 135, potassium 5, chloride 104, carbon dioxide 18, BUN 62, cr eatinine 2.66, glucose 67, AST 60, ALT 20, albumin 2.7. White count 10.7, hemoglobin 6.6. Urinalysi s, specific gravity is 1022, no casts. ASSESSMENT AND PLAN: 1. Acute kidney injury, consider hemodynamically mediated renal dysfunction. Urine sediment was rel atively benign, except for very concentrated urine - specific gravity was noted at 1022. Continue ge ntle volume repletion with this patient and optimize hemodynamics. Consider blood transfusion. Cont inue salt poor albumin 25 grams IV q.6 hours. There is no indication for any dialytic intervention. 2. Sepsis - empiric IV antibiotics. Currently on Zosyn. We will continue to follow.
[2017-04-29] MEDS ORDERED: Albumin 25% 25 GM/100 ML BOT IVPB SCH (12:00)
--- NOTE | 2017-04-29 12:38 | PDOC.PN ---
- Subjective Encounter Start Date: 04/29/17 Encounter Start Time: 09:30 placed on pressors yesterday evening as well as NG tube- put out 400 in the first hour limited answers back complains of abd pain - Objective Resuscitation Status: Resuscitation Status FULL:Full Resuscitation Vital Signs & Weight: Vital Signs (12 hours) Temp Pulse Resp Pulse Ox 04/29/17 07:17 98.2 F 84 21 H 96 04/29/17 04:00 98.2 F Weight Weight 203 lb 7.787 oz Most Recent Monitor Data Heart Rate from ECG 85 NIBP 122/49 NIBP BP-Mean 72 Respiration from ECG 16 SpO2 98 I&O: 04/28/17 04/29/17 04/30/17 06:59 06:59 06:59 Intake Total 1474 Output Total 1375 Balance 99 Result Diagrams: 04/29/17 04:40 04/29/17 04:40 Phys Exam - Physical Examination mild distress HEENT: PERRLA, moist MMs, sclera anicteric Neck: no JVD, supple Respiratory: no wheezing, clear to auscultation bilateral Cardiovascular: RRR, no significant murmur Gastrointestinal: soft very tender to touch. guarding present but no rebound. mild distenstion. fresh scar of the anterior wall. shakeel removed. wound dressing seen Musculoskeletal: pulses present Skin: cap refill <2 seconds Dx/Plan (1) Septic shock Code(s): A41.9 - SEPSIS, UNSPECIFIED ORGANISM; R65.21 - SEVERE SEPSIS WITH SEPTIC SHOCK Status: Acute (2) Abdominal wall cellulitis Code(s): L03.311 - CELLULITIS OF ABDOMINAL WALL Status: Acute (3) Arthritis, rheumatoid Code(s): M06.9 - RHEUMATOID ARTHRITIS, UNSPECIFIED Status: Chronic (4) Acute kidney failure Status: Resolved (5) Elevated troponin Code(s): R74.8 - ABNORMAL LEVELS OF OTHER SERUM ENZYMES Status: Acute - Plan cont current plan of care, plan discussed w/ family, continue antibiotics * . wound vac placement ordered no surgical intervention at this time weaning pressors will give 2 units of PRBC's clamp NG when ouptut minimal/stopped
[2017-04-29] MEDS: Sodium Chloride 0.9% 1,000 ML IV SCH (13:15)
--- NOTE | 2017-04-29 13:58 | PRG ---
DATE OF SERVICE: 04/29/2017 SUBJECTIVE: Ms. Millan is 17 days status post exploratory laparotomy, oversew of fourth portion duoden al ulcer perforation, segmental small bowel resection with primary jejunojejunostomy. The patient was readmitted yesterday with worsening malaise and abdominal pain. Clinical and radiogr aphic examination was consistent with left abdominal wall abscess. The jejunostomy tube was removed and a large amount of pus egressed from the site. The patient has been on IV antibiotic therapy in the interim. OBJECTIVE: VITAL SIGNS: Today includes blood pressure 117/58, pulse is 83, respiratory rate is 21. Maximum tem perature in the last 24 hours is 98.2 degrees Fahrenheit. Oxygen saturation is 96%. HEENT: Reveals normocephalic and atraumatic. The pupils equal, round, reactive to light and accommo dation. HEART: Reveals regular rate and rhythm, no murmurs or gallops auscultated. CHEST: Clear to auscultation bilaterally. Breathing is regular and unlabored. ABDOMEN: Soft with left-sided abdominal tenderness to palpation. There is erythema at the site of t he previous jejunostomy tube. No significant fluctuance is present. NEUROLOGIC: Patient is confused with a [place] coma scale of E4 M6 V4. I did review the CT scan of the abdomen and pelvis which was obtained on 04/27/2017 which reveals ext ensive left anterior abdominal wall subcutaneous gas collection as well as a small amount of free air in the anterior aspect of the peritoneal cavity. No free intraperitoneal fluid was noted. LABORATORY FINDINGS: Today includes CBC with 10,700 white blood cells in contrast to 1500 white bloo d cells yesterday, hemoglobin is 6.6, hematocrit is 20.6, platelet count is 324,000. Metabolic prof ile: Sodium 135, potassium is 5.0, chloride is 104, bicarbonate 18, BUN 62, creatinine is 2.66, gluc ose is 67. AST and ALT noted at 20 and 72 respectively. IMPRESSION: 1. Abdominal wall abscess. 2. Acute kidney injury secondary to septic shock which is now resolving. 3. History of polymyositis, on chronic steroids. PLAN: I discussed at length with the patient and her daughter at bedside. Naturally treatment for a bdominal wall abscess would include incision and drainage. The patient has abdominal wound which has failed to heal after 16 days despite no infectious process on the incisional wound itself. Incision and drainage of the abdominal wall abscess under general anesthesia may be to this patient's detriment, especially since the abscess is spontaneously draining through the previous jejunostomy s ite. I am therefore recommending that would continue with conservative therapy including warm compresses a round the site of the cellulitis and dressing changes while broad spectrum antibiotics are continued. As long as the patient is improving physiologically speaking this ought to be the treatment of martins ce; however, if the patient fails to improve or if her condition worsens, we will give consideration at that time for a more invasive approach which includes incision and drainage of the anterior abdom inal wall abscess plus or minus laparotomy to investigate the pneumoperitoneum. The patient's daught er specifically indicates understanding of information I have provided and has agreed with this plan.
[2017-04-29] MEDS: Vancomycin HCl 750 MG in Sodium Chloride 0.9% 250 ML 250 ML IVPB SCH (14:18)
--- NOTE | 2017-04-29 15:41 | PRG ---
DATE OF SERVICE: 04/29/2017 SERVICE: Pulmonary Medicine. INTERVAL HISTORY: The patient is doing much better from a respiratory standpoint. She still remains on Levophed, but her blood pressure has firmed up very nicely. Urine output is starting to worm picker a little bit. Otherwise, there has been no interval change to her condition. PHYSICAL EXAMINATION: VITAL SIGNS: Afebrile, pulse 81, blood pressure 130/57, respirations 21, saturation 97% on 2 liters nasal cannula. GENERAL: The patient is awake and alert, no apparent distress. LUNGS: Much improved air entry. Dependent crackles are minimal. No prolonged expiratory phase or w heezing. HEART: Normal rate, regular. ABDOMEN: Soft, nontender, nondistended. Bowel sounds are positive. MUSCULOSKELETAL: No cyanosis or clubbing. There is 2+ pitting in the bilateral lower extremities. NEUROLOGIC: Grossly nonfocal. LABORATORY DATA: WBC 10.7, hemoglobin 6.6 and dropping, platelets 324,000. Band count is 42%. Crea tinine 2.66 and roughly stable compared to yesterday, BUN 62. Basic metabolic profile, liver functio n study is otherwise unremarkable. Troponin is down trending, lactate is negative. Urinalysis is un remarkable. Blood cultures x2 are negative. ASSESSMENT: 1. Severe sepsis. 2. Cellulitis/abscess of the subcutaneous tissue at the jejunostomy tube site. 3. Pneumoperitoneum, status post surgery 3 weeks ago. 4. Acute kidney injury. 5. Leukopenia secondary to severe sepsis, resolved. 6. Hyponatremia, resolved. PLAN: We will continue supportive measures moving forward including antibiotics. We will wean the p ressors as tolerated. I will repeat hemoglobin this afternoon to make certain that she has not requi red any additional blood. I would like for her stay about 7 if possible. Pulmonary Critical Care wi ll continue to follow while she remains in the ICU. Dr. Porter will assume coverage in the morning.
[2017-04-29 20:57] LABS: Hemoglobin 8.3 g/dL (12.0-16.0)
[2017-04-30] MEDS: Piperacillin/Tazobactam 2.25 GM in Sodium Chloride 0.9% 100 ML IVPB SCH ×4 (03:43→21:05)
[2017-04-30] MEDS: Acetaminophen 325 MG TAB PO PRN ×2 (04:02→20:10)
[2017-04-30 04:59] LABS: Anion Gap 19 mmol/L (10-20); BUN (Urea Nitrogen) 65 mg/dL (9.8-20.1); Calc. Creatinine Clearance 25 mL/min (70-130); Calcium 8.3 mg/dL (7.8-10.44); Carbon Dioxide 18 mmol/L (23-31); Chloride 105 mmol/L (98-107); Estimated GFR-MDRD 17; Glucose 92 mg/dL (83-110); Magnesium 1.7 mg/dL (1.6-2.6); Phosphorus 5.9 mg/dL (2.3-4.7); Potassium 4.6 mmol/L (3.5-5.1); Sodium 137 mmol/L (136-145)
[2017-04-30 05:05] LABS: Band 39 % (5-11); Hemoglobin 8.5 g/dL (12.0-16.0); Hypochromia SLIGHT = 6-15 cells (100X) (0-5/hpf); Lymphocytes 7 % (21-51); MDiff Complete? YES; Mean Corpuscular HGB CONC 31.7 g/dL (32.0-36.0); Mean Corpuscular Volume 91.6 fl (81.0-99.0); Monocytes 11 % (0-10); Neutrophil 43 % (42-75); Nucleated RBC 1 % (0); PLT Morphology Comment Appears Adequate; Platelet Count 260 thou/uL (130-400); RBC Distribution Width 15.8 % (11.5-14.5); Red Blood Cell (RBC) Count 2.92 mill/uL (4.20-5.40); Schistocytes SLIGHT = 2-5 cells (100X) (0-1/hpf); White Blood Cell (WBC) Count 14.7 thou/uL (4.8-10.8)
[2017-04-30] MEDS: Aspirin 300 MG Suppository PR SCH (08:53)
[2017-04-30] MEDS: Pantoprazole 40 MG VIAL IVP SCH (08:53)
[2017-04-30] MEDS: Heparin 5,000 UNITS/ML VIAL SC SCH ×3 (08:53→20:10)
[2017-04-30] MEDS: Fluconazole In NaCl,Iso-Osm 100 MG in Premix Bag 1 BAG IVPB SCH ×2 (09:39)
--- NOTE | 2017-04-30 12:13 | PRG ---
DATE OF SERVICE: 04/30/2017 This morning she is awake, alert, responsive. PHYSICAL EXAMINATION: VITAL SIGNS: Blood pressure is 122/65, sats are 93 on 2 liters, temperature 99, respirations 15. CHEST: Chest revealed decreased breath sounds, no wheezing. CARDIAC: Normal S1-S2. No gallops. ABDOMEN: Soft. No masses. LABORATORY: White count 14,000, H&H 8 and 26, platelet count is 260. Electrolytes normal. Creatini ne is 2.36. IMPRESSION: 1. Status post abdominal wall abscess status post surgical intervention. 2. Baseline underlying chronic obstructive pulmonary disease. 3. Renal failure. PLAN: The patient is to be started on tube feedings today. Continue neb treatments. Steroids. I will follow.
--- NOTE | 2017-04-30 12:14 | PRG ---
DATE OF SERVICE: 04/30/2017 RENAL MEDICINE SUBJECTIVE: Ms. Millan is a 76-year-old white female who was admitted for sepsis and was seen by Renal Service for acute kidney injury. We initially felt this was hemodynamically mediated renal dysfunct ion. Her urine sediment was roughly benign except for very concentrated urine. Salt-poor albumin wa s given yesterday. In addition, renal function remains unimproved, but stable this morning. Her J-t ube has been removed by her surgeon. She is currently on empiric IV antibiotics. PHYSICAL EXAMINATION: VITAL SIGNS: Blood pressure is 120/62 with heart rate 82, respiratory rate 15, and pulse ox 96%. GENERAL: The patient is sedated, comfortable, and minimally responsive. SKIN: Adequate turgor. HEENT: She has slightly pale conjunctivae, anicteric sclerae. NECK: No neck mass, no carotid bruits, no JVD. CHEST: No deformities. LUNGS: Decreased breath sounds. No wheezing and no crackles. HEART: Normal sinus rhythm. No murmur, no gallops or rubs. ABDOMEN: Globular, soft. Positive for wound VAC. EXTREMITIES: Trace edema. MEDICATIONS: Medications of 04/30/2017 was reviewed. LABORATORY DATA: Laboratories of 04/30/2017; white count 14.7, hemoglobin 8.5. Sodium 137, potassiu m 4.6, chloride 105, carbon dioxide 18, BUN 65, creatinine 2.75, GFR 17 mL per minute, phosphorus 5.9 , magnesium 1.7. On 04/29/2017, albumin 2.7. ASSESSMENT AND PLAN: 1. Acute kidney injury - most likely related to hemodynamically mediated renal dysfunction and sugge sted by very concentrated urine. In addition, no granular cast was noted. Continue gentle volume re pletion. Continue to optimize hemodynamics. Please note patient received 2 units of packed RBC yest erday. We will probably start her back on normal saline 100 mL per hour. There is no indication for any dialytic intervention. 2. Sepsis, supportive care. Continue IV antibiotics.
--- NOTE | 2017-04-30 12:24 | PRG ---
DATE OF SERVICE: 04/30/2017 SUBJECTIVE: I am seeing Ms. Millan this morning with her adult daughter at bedside. She remains somew hat somnolent; however, responds to me when prompted. She reports still some abdominal pain, though not as severe as it was when she was first admitted. She has had no emesis overnight. She is curren tly on no vasopressor support. OBJECTIVE: VITAL SIGNS: This morning includes blood pressure 139/73, pulse 79, respiratory rate is 21, temperat ure is 99 degrees Fahrenheit, and oxygen saturation is 95% on 2 liters by nasal cannula oxygen. HEENT: Examination reveals normocephalic and atraumatic. Pupils are equal, round and reactive to li ght bilaterally. HEART: Reveals regular rate and rhythm, no murmurs or gallops auscultated. LUNGS: Clear to auscultation bilaterally. Breathing is regular and unlabored. ABDOMEN: Soft and nondistended. She has left-sided tenderness to palpation. There is still some re dness around the exit site of the previous jejunostomy tube. Some purulent drainage egresses from th e ostium. She has rebound tenderness present. NEUROLOGIC: Otherwise, reveals no focal deficits present. LABORATORY DATA: Laboratory findings today include CBC with 14,700 white blood cells, hemoglobin 8.5 , hematocrit is 26.8, and platelet count is 260,000. Differential count as follows, 43% segmented ne utrophils, 39 bands, 7 lymphocytes, and 11 monocytes. Metabolic profile: Sodium 137, potassium is 4 .6, chloride is 105, bicarbonate is 18, BUN is 65, creatinine is 2.75, glucose is 92, magnesium 1.7, and phosphorus is 5.9. IMPRESSION: 1. Left-sided abdominal wall abscess. 2. History of polymyositis. 3. Acute kidney injury secondary to septic shock, stable. PLAN: 1. Continue local wound care with warm compresses and antibiotic therapy. 2. I discussed surgical options with patient and her daughter at bedside. Surgical option obviously would include incision and drainage of the abscess which may not resolve this issue adequately given this patient's poor healing secondary to chronic steroid use. She has elected conservative manageme nt at this time. We will continue to follow.
[2017-04-30] MEDS: Sodium Chloride 0.9% 1,000 ML IV SCH (14:47)
[2017-04-30 15:02] LABS: Vancomycin, Trough 14.7 ug/mL
[2017-04-30] MEDS: Vancomycin HCl 750 MG in Sodium Chloride 0.9% 250 ML 250 ML IVPB SCH (16:13)
--- NOTE | 2017-04-30 17:09 | PDOC.PN ---
- Subjective Encounter Start Date: 04/30/17 Encounter Start Time: 17:07 c/o abd pain no f/c no n/v - Objective Resuscitation Status: Resuscitation Status FULL:Full Resuscitation MAR Reviewed: Yes Vital Signs & Weight: Vital Signs (12 hours) Temp Pulse Resp Pulse Ox 04/30/17 14:39 96 04/30/17 14:32 80 24 H 96 04/30/17 12:00 99 F 04/30/17 07:48 99.5 F 82 15 96 04/30/17 07:00 99 F 04/30/17 06:52 95 Weight Admit Weight 203 lb Weight 3.291 oz Most Recent Monitor Data Heart Rate from ECG 81 NIBP 137/75 NIBP BP-Mean 104 Respiration from ECG 21 SpO2 96 I&O: 04/29/17 04/30/17 05/01/17 06:59 06:59 06:59 Intake Total 1474 1997 500 Output Total 1375 612 270 Balance 99 1385 230 Result Diagrams: 04/30/17 03:50 04/30/17 03:50 Phys Exam - Physical Examination Constitutional: NAD HEENT: PERRLA Neck: no JVD Respiratory: no wheezing Cardiovascular: no significant murmur purulent drainage from jejunostomy site, some rebound Musculoskeletal: no edema Neurological: moves all 4 limbs Psychiatric: normal affect Dx/Plan (1) Abdominal wall cellulitis Code(s): L03.311 - CELLULITIS OF ABDOMINAL WALL Status: Acute (2) Septic shock Code(s): A41.9 - SEPSIS, UNSPECIFIED ORGANISM; R65.21 - SEVERE SEPSIS WITH SEPTIC SHOCK Status: Acute (3) Anemia due to acute blood loss Code(s): D62 - ACUTE POSTHEMORRHAGIC ANEMIA Status: Acute (4) Dyslipidemia Code(s): E78.5 - HYPERLIPIDEMIA, UNSPECIFIED Status: Chronic (5) Hypertension Code(s): I10 - ESSENTIAL (PRIMARY) HYPERTENSION Status: Chronic - Plan * cont abx, wound care, warm compresses * surg input appreciated * f/u renal plan
[2017-04-30] MEDS ORDERED: traMADol HCl 50 MG TAB PO PRN (21:40)
[2017-05-01] MEDS: Sodium Chloride 0.9% 1,000 ML IV SCH ×2 (02:25→03:28)
[2017-05-01] MEDS: Acetaminophen 325 MG TAB PO PRN (02:25)
[2017-05-01] MEDS: Piperacillin/Tazobactam 2.25 GM in Sodium Chloride 0.9% 100 ML IVPB SCH ×2 (02:25→14:32)
[2017-05-01] MEDS ORDERED: Morphine 4 MG/ML VIAL IV SCH (03:00)
[2017-05-01 05:09] LABS: Albumin 2.5 g/dL (3.4-4.8); Anion Gap 17 mmol/L (10-20); BUN (Urea Nitrogen) 70 mg/dL (9.8-20.1); BUN/Creatinine Ratio 25.55; Calc. Creatinine Clearance 0 mL/min (70-130); Calcium 8.1 mg/dL (7.8-10.44); Carbon Dioxide 18 mmol/L (23-31); Chloride 107 mmol/L (98-107); Estimated GFR-MDRD 17; Glucose 107 mg/dL (83-110); Magnesium 1.7 mg/dL (1.6-2.6); Potassium 4.4 mmol/L (3.5-5.1); Sodium 138 mmol/L (136-145)
[2017-05-01 05:33] LABS: Band 8 % (5-11); Lymphocytes 5 % (21-51); MDiff Complete? YES; Mean Corpuscular HGB CONC 32.9 g/dL (32.0-36.0); Mean Corpuscular Hemoglobin 29.6 pg (27.0-31.0); Mean Platelet Volume 8.7 fL (7.4-10.4); Metamyelocyte 2 % (0-0); Neutrophil 85 % (42-75); PLT Morphology Comment Appears Adequate; Platelet Count 230 thou/uL (130-400); Red Blood Cell (RBC) Count 3.36 mill/uL (4.20-5.40); White Blood Cell (WBC) Count 16.6 thou/uL (4.8-10.8)
[2017-05-01] MEDS: Morphine 4 MG/ML VIAL SLOW IVP PRN ×5 (07:31→20:26)
[2017-05-01] MEDS: Fluconazole In NaCl,Iso-Osm 100 MG in Premix Bag 1 BAG IVPB SCH ×2 (08:50)
[2017-05-01] MEDS: Pantoprazole 40 MG VIAL IVP SCH (08:50)
[2017-05-01] MEDS: Heparin 5,000 UNITS/ML VIAL SC SCH ×2 (08:51→14:15)
[2017-05-01] MEDS: Aspirin 300 MG Suppository PR SCH (08:51)
[2017-05-01] MEDS ORDERED: Albumin 25% 25 GM/100 ML BOT IVPB SCH (11:00)
[2017-05-01] MEDS ORDERED: Piperacillin/Tazobactam 2.25 GM in Sodium Chloride 0.9% 100 ML IVPB SCH (12:00)
[2017-05-01 12:30] VITALS: BMI 32.0
--- NOTE | 2017-05-01 12:35 | PDOC.PN ---
- Subjective Encounter Start Date: 05/01/17 Encounter Start Time: 12:34 Patient seen and examined. No new complaints. No overnight events - Objective Resuscitation Status: Resuscitation Status FULL:Full Resuscitation MAR Reviewed: Yes Vital Signs & Weight: Vital Signs (12 hours) Temp Pulse Resp Pulse Ox 05/01/17 08:00 98.1 F 102 H 17 93 L 05/01/17 07:00 98.1 F 05/01/17 05:00 98.3 F 05/01/17 01:44 96 Weight Admit Weight 203 lb Weight 207 lb 10.807 oz Most Recent Monitor Data Heart Rate from ECG 104 NIBP 135/90 NIBP BP-Mean 103 Respiration from ECG 22 SpO2 94 I&O: 04/30/17 05/01/17 05/02/17 06:59 06:59 06:59 Intake Total 1996 Output Total 612 621 745 Balance 1385 1433 645 Result Diagrams: 05/01/17 04:20 05/01/17 04:20 Phys Exam - Physical Examination awake HEENT: moist MMs Neck: no JVD Respiratory: no rales Cardiovascular: RRR tender,purulent d/c from jejunostomy site Musculoskeletal: pulses present Neurological: moves all 4 limbs Deviation from normal: awake Dx/Plan (1) Abdominal wall cellulitis Code(s): L03.311 - CELLULITIS OF ABDOMINAL WALL Status: Acute (2) Septic shock Code(s): A41.9 - SEPSIS, UNSPECIFIED ORGANISM; R65.21 - SEVERE SEPSIS WITH SEPTIC SHOCK Status: Acute (3) Anemia due to acute blood loss Code(s): D62 - ACUTE POSTHEMORRHAGIC ANEMIA Status: Acute (4) Dyslipidemia Code(s): E78.5 - HYPERLIPIDEMIA, UNSPECIFIED Status: Chronic (5) Hypertension Code(s): I10 - ESSENTIAL (PRIMARY) HYPERTENSION Status: Chronic (6) Sepsis Code(s): A41.9 - SEPSIS, UNSPECIFIED ORGANISM Status: Acute - Plan * cont abx, wound care, warm compresses * surg input appreciated * f/u renal plan
--- NOTE | 2017-05-01 12:40 | PRG ---
DATE OF SERVICE: 05/01/2017 SUBJECTIVE: Ms. Millan is awake and alert today. She reports severe abdominal pain. This is not resolving despite multiple courses of intravenous analgesics. She remains hemodynamically stable, nevertheless, no vasopressor support at this time. OBJECTIVE: VITAL SIGNS: Today includes blood pressure 135/90, pulse is 104, respiratory rate is 28. Maximum te mperature in the last 24 hours is 98.8 degrees Fahrenheit. Oxygen saturation is currently 94% on 2 l iters by nasal cannula oxygen. HEENT: Reveals normocephalic and atraumatic. She has no sclerae icterus present. The previously no nasima sclerae edema is resolved. No jugular venous distention is noted. HEART: Reveals regular rate with mild sinus tachycardia. No murmurs or gallops auscultated. LUNGS: Clear to auscultation bilaterally. Breathing is regular and unlabored. ABDOMEN: Soft and diffusely tender to palpation. There remains some scant purulent drainage from th e previous jejunostomy ostium. The redness in the left anterior abdominal wall persists, but nonexpa nding. NEUROLOGIC: Reveals no focal deficits present. PERTINENT LABORATORY FINDINGS: Today includes CBC with 16,600 white blood cells, hemoglobin is 10.0, hematocrit is 30.2 and platelet count is 230,000. Differentials as follows, 85% segmented neutrophi ls, 8 bands, 5 lymphocytes and 2 metamyelocytes. Metabolic profile: Sodium 138, potassium is 4.4, c hloride is 107, bicarbonate 18, BUN 70, creatinine is 2.74, glucose is 107, magnesium is 1.7 and phos phorus is 6.0. IMAGING DATA: I have repeated the CT scan of the abdomen and pelvis today with a scant amount of ora l contrast as the patient was intolerance to oral contrast. The CT scan reveals extensive amount of intraperitoneal free fluid. There is also increasing left an d anterior abdominal wall subcutaneous emphysema. IMPRESSION: 1. Acute abdominal wall abscess. 2. Free intraperitoneal fluid with peritonitis, highly suspicious for some leak either from the prev ious enterotomy or from the enteroenterostomy anastomosis. PLAN: We will have an extensive discussion with this patient and her adult daughter and power of megan montes. This patient has been on chronic steroids, which has not impaired the healing of the incision al wound. I suspect that she may very well have also leaked from a nonhealing anastomosis or also repair. If this is the case, I highly doubt that any reoperation is going to lead to a different outcome. We will continue with the current medical management at this time and depending on the outcome of fam radha conference, surgical intervention may or may not be undertaken.
--- NOTE | 2017-05-01 12:42 | CT ---
ABDOMEN AND PELVIC CT SCAN WITHOUT IV CONTRAST: Date: 05/01/17 COMPARISON: 04/27/17. FINDINGS: There are small bilateral pleural effusions and bilateral lower lobe parenchymal changes, evidence fo r minimal lower lobe pneumonia or subsegmental atelectasis. There is some residual oral contrast within the stomach with some reflux into the distal esophagus. T here is also some residual oral contrast within the large and small bowel. There are some scattered a reas of free intraperitoneal air, although less marked than on the prior study. There are also some scattered areas of extraluminal gas within the mesentery. The previously noted je junostomy tube has been removed. There is some persistent subcutaneous air density around where the j ejunostomy tube had been present and what may actually be more subcutaneous air overlying the left an terior and lateral abdominal wall than seen on the prior study. This raises the possibility of either some continued air leak at the site of the jejunostomy tube or possibly some air-producing infection to account for this increased air. There is also minimal subcutaneous splotchy gas noted to the righ t of midline at the level of the umbilicus with persistent skin defect at the level of the umbilicus. There is some free intraabdominal fluid noted primarily in the upper abdomen around the liver and al so around the spleen and anteriorly to the stomach with some free intraperitoneal fluid also collecti ng in the pelvis. The amount of free intraperitoneal fluid has definitely worsened or progressed when compared to the 04/27/17 study. There appear to be some postoperative surgical sutures within a mild ly dilated loop of jejunum. There are some minimally dilated loops of jejunum which still contain micheal e residual oral contrast within them with some potential wall thickening, including the loop that had had the jejunostomy tube. IMPRESSION: 1. Worsening amount of free intraperitoneal fluid within the abdomen and pelvis, particularly around the liver and spleen, and anterior upper abdomen. This raises concern for the possibility of some ty pe of intestinal perforation and leak, particularly given the scattered free intraperitoneal air and mesenteric scattered gas, as well as abnormal thick-walled appearing jejunal loops. Coexistent perito nitis is also a strong concern. 2. Worsening amount of subcutaneous gas noted involving the anterior abdominal wall, much more promi nent left-sided than right-sided, with some considerable inflammatory changes in the left anterior ab dominal wall at the site of the prior jejunostomy tube. This is certainly very worrisome for gas-prod ucing subcutaneous soft tissue infection. 3. There is also some right anterior abdominal wall worsening gas along the site of a wound tract, w hich would also be consistent with worsening subcutaneous infection. 4. There is also a prominent area of incomplete healing of the anterior abdominal wall midline surge ry and some scattered gas along the surgical site. This largest defect is at the level of the umbilic us. 5. Bilateral pleural effusions and pleural based parenchymal changes, somewhat greater in the right base, evidence for pneumonia and/or subsegmental atelectasis. 6. Bilateral subcutaneous fat stranding, probably related to anasarca. 7. Contrast media in the stomach extends into the esophagus, evidence for some reflux. 8. Cardiomegaly. Findings were discussed with Dr. Larson at 1050 hours on 05/01/17, who indicated that the site of the left jejunostomy tube exuded pus when he pulled the tube out previously and he felt that the changes in the anterior abdominal wall were certainly consistent with worsening soft tissue infection from ga s-producing organisms and the worsening free intraperitoneal fluid was consistent with bowel leak/bow el perforation, probably of the jejunum. CODE CR. POS: FLORES
--- NOTE | 2017-05-01 14:02 | PRG ---
DATE OF SERVICE: 05/01/2017 SUBJECTIVE: Ms. Millan is a 76-year-old white female who was seen by the Renal Service for her acute k idney injury that was hemodynamically mediated. She has received empiric volume repletion and curren tly on broad spectrum antibiotics. This morning she has been having acute abdominal discomfort. A C T scan was done. Currently draining her oral contrast by the NG tube. No acute events noted last night. In addition, the patient was recently started on IV fluid yesterda y. OBJECTIVE: VITAL SIGNS: Blood pressure is 148/87, heart rate 96, respiratory rate 30, O2 sat 94%. GENERAL: Stable, but not in distress. SKIN: Adequate turgor. HEENT: Pinkish conjunctivae. Anicteric sclerae. NECK: No neck mass, no carotid bruits, no JVD. CHEST: No deformities. LUNGS: Decreased breath sounds. HEART: Normal sinus rhythm. No murmur, no gallops, no rubs. ABDOMEN: Globular, soft, decreased bowel sounds. EXTREMITIES: Trace edema. MEDICATIONS: Of 05/01/2017 was reviewed. LABORATORY DATA: Of 05/01/2017: White count 16.6, hemoglobin is 10. Sodium 138, potassium 4.4, chl oride 107, carbon dioxide 18, BUN 70, creatinine 2.74, GFR 17 mL per minute. Glucose 107, phosphorus 6.0, magnesium 1.7, albumin 2.5. ASSESSMENT AND PLAN: 1. Acute kidney injury - presumptive basis of hemodynamically mediated renal dysfunction. My advice is to continue normal saline at 100 mL per hour. We will add albumin infusion at 25 grams IV q.6 ho urs with this patient. There is no indication for any dialytic intervention. 2. Sepsis - empiric IV antibiotics. 3. Abdominal discomfort - CT scan of the abdomen and pelvis was ordered. Currently, the results are pending. Continue supportive care. Overall, prognosis remains guarded.
[2017-05-01] MEDS: Vancomycin HCl 750 MG in Sodium Chloride 0.9% 250 ML 250 ML IVPB SCH (14:31)
--- NOTE | 2017-05-01 14:31 | PRG ---
DATE OF SERVICE: 05/01/2017 SUBJECTIVE: This morning having significant abdominal pain. Denies any shortness of breath. OBJECTIVE: VITAL SIGNS: Blood pressure 140/80, sats 90%, respiratory rate 20, temperature 98. I's and O's have been 2054 in and 621 out. CHEST: Decreased breath sounds without any wheezing. CARDIAC: Normal S1, S2, no gallops. ABDOMEN: Soft, no masses. LABORATORY DATA: White count 16,000, H and H 10 and 30, platelet count is elevated. Creatinine is 2 .7, BUN is 70. IMPRESSION: 1. Abdominal sepsis. 2. Renal failure. 3. Encephalopathy. PLAN: She is to go for a repeat CT of the abdomen. She is having ongoing issues. She is following on TPA. Continue antibiotics. PEG tube has grown Klebsiella and Enterococcus faecalis, which is sensitive to the present antibiotics, vancomycin and Zosyn. We will follow.
--- NOTE | 2017-05-01 17:30 | CON ---
DATE OF CONSULTATION: 05/01/2017 REASON FOR CONSULTATION: Complications following jejunostomy for management of perforated duodenal u lcer and ischemic bowel. HISTORY OF PRESENT ILLNESS: A 76-year-old with history of rheumatoid arthritis who sustained a perfo rated duodenal ulcer at the end of March. The patient had laparotomy repair of the ulcer. She al so had a segmental intestinal resection. Jejunostomy tube was placed, eventually discharged to [facility] for rehabilitation. Over the past few days has developed progressive altered mental status an d worsening abdominal pain and fever. On initial exam, BP 101/61, pulse 92, respiratory rate 35, and O2 sat 96% with temperature 98.2, did not appear in distress, but she was lethargic, oriented to molly f, but not place or time. Neck was supple. Lungs with clear breath sounds. Heart rate, regular. N ormal heart sounds. Abdomen was distended and diffusely tender. J tube had a greenish discharge in the orifice. Initial white cell count 1.5 with 76% neutrophils, 42% bands. Sodium 132, creatinine 2 .46, which is higher than her baseline. CT of abdomen and pelvis showed postop changes, but no evide nce of leakage with bowel obstruction. Initial impression was sepsis, possible cellulitis of the abd ominal area. Patient had an NG tube placed for decompression. She was started on broad spectrum ant imicrobial therapy, thus far blood cultures are negative. Cultures from the gastrostomy exit site wi th Klebsiella pneumo very susceptible phenotype, Enterococcus faecium susceptible phenotype and Enter obacter cloacae with very susceptible phenotype as well. Repeat abdomen and pelvis CT showed worseni ng amount of free intraperitoneal fluid, particularly along the liver and spleen, raising the concern for some leakage, worsening amount of subcutaneous gas noted in the anterior abdominal wall. In vie w of the high risk of interloop re-intervention, conversations had been undertaken with the family re garding palliative care. Currently, Ms. Millan is delirious, unable to answer questions. PAST MEDICAL HISTORY: Rheumatoid arthritis, hypothyroidism, perforated duodenal ulcers, ischemic bow el, recent laparotomy with repair of the above and segmental bowel resection, jejunostomy tube placem ent, coronary artery disease, and prior coronary bypass graft surgery. SOCIAL HISTORY: Never a smoker. CURRENT MEDICATIONS: Albumin, DuoNeb, aspirin, fluconazole, methylprednisolone, morphine, norepineph rine, ondansetron, Zosyn, and vancomycin. PHYSICAL EXAMINATION: VITAL SIGNS: Temperature max 99.5, blood pressure 130/90, pulse 104, respirations 20-28, O2 sat 94%. SKIN: Shows the area of bruising around the gluteal region bilaterally, very symmetric distribution. The jejunostomy exit site with greenish hemorrhagic drainage, the laparotomy wound with mostly fres h adipose tissue with some areas of superficial hemorrhage. The patient has NG drainage from the NG tube, Hancock catheter placement. HEENT: Ocular movements are conjugate. Pupils are miotic. NECK: Supple. LUNGS: Symmetric air entry with faint basilar crackles. S1, S2, regular rate. ABDOMEN: Diffusely distended, appears to be tender to palpation. Bowel sounds are not present. EXTREMITIES: Faintly moves extremities on stimulation, but does not interact with examiner at this p oint. LABORATORY DATA: Sodium 132, creatinine 2.46, albumin 2.3, AST 56, ALT 24, alkaline phosphatase 99. White cell count 16.6, hemoglobin 10, platelets 230 with 85% neutrophils, 8% bands. Urinalysis was not remarkable. Microbiology with 2 sets of negative blood cultures thus far. Imaging studies as re ported above. ASSESSMENT: 1. Rheumatoid arthritis. 2. Coronary artery disease. 3. Aortic stenosis. 4. Perforated duodenal ulcer, status post repair. 5. Ischemic bowel requiring segmental small bowel resection and jejunojejunostomy with feeding jejun ostomy tube placement. 6. Sepsis. 7. Evidence of leakage probably at the anastomosis with peritonitis. 8. Drainage from the jejunostomy tube exit site. DISCUSSION: The patient has sepsis associated with peritonitis secondary to the above complication, likely leakage from the anastomosis. The patient also has leakage around the jejunostomy tube and th e tube has been removed. The patient is on proper broad-spectrum coverage, probably does not require vancomycin. The overall prognosis is poor in view of the high risk of re-intervention and inability to offer source control. Discussions with family undergoing regarding palliative care.
[2017-05-01 17:48] VITALS: TEMP 97.8
--- NOTE | 2017-05-02 06:30 | DIS ---
DATE OF ADMISSION: 04/28/2017 DATE OF TRANSFER TO HOSPICE: 05/01/2017 DISPOSITION: Hospice. DIAGNOSES ON DISCHARGE: Septic shock secondary to abdominal infection, acute care renal failure seco ndary to sepsis, history of rheumatoid arthritis, elevated troponin, history of duodenal ulcer, histo ry of anemia secondary to blood loss, coronary artery disease, hypertension, aortic stenosis, d uodenal ulcer status post repair, ischemic bowel requiring segmental small bowel resection and jejuno stomy with a feeding jejunostomy tube, which was removed later, evidence of the leakage probably at t he anastomosis with peritonitis. CONSULTANTS: Patient's consultants on the case were Dr. Borges, Dr. Larson, Dr. Tejeda, Dr. Padron, and Dr. Porter. BRIEF HOSPITAL COURSE: This is a 76-year-old female patient, who was admitted to our hospital with a ltered mental state and abdominal pain. Please refer to the admitting physician's H and P for furthe r details. The patient was diagnosed with sepsis secondary to abdominal wall infection. CT scan was done. Dr. Larson evaluated the patient and spoke to the family. He was planning incision and draina ge to drain the abscess, but the family refused and chose hospice. Arrangements for hospice have bee n done. During this hospital course, Dr. Borges evaluated the patient and optimized the antibiotic tr eatment. The patient was also seen by Pulmonary Critical Care as the patient was in ICU. Patient ri devent now is medically stable to be transferred to the hospice care with family arrangements, and all q uestions of the family have been answered. Further arrangements have been made. The patient is righ t now medically stable to be transferred to hospice.
== END 2017-05-01 20:50 | disposition hospice, inpatient (51) | DRG 393 ==
LOC: ERS 10:46 → IMCU/EMU 15:55 → CCU 18:13
PROVIDERS: ADMIT Internal Medicine; ATTEND Internal Medicine
PROC: 30233N1 Transfusion of Nonautologous Red Blood Cells into Peripheral Vein, Percutaneous Approach (ICD-10-PCS; principal; 2017-04-29)
DX: K94.12 Enterostomy infection (principal); A41.9 Sepsis, unspecified organism; R65.21 Severe sepsis with septic shock; G93.40 Encephalopathy, unspecified; N17.9 Acute kidney failure, unspecified; E87.1 Hypo-osmolality and hyponatremia; E87.2 Acidosis; D62 Acute posthemorrhagic anemia; L03.311 Cellulitis of abdominal wall; L02.211 Cutaneous abscess of abdominal wall; K66.8 Other specified disorders of peritoneum; E03.9 Hypothyroidism, unspecified; I10 Essential (primary) hypertension; M06.9 Rheumatoid arthritis, unspecified; I25.10 Atherosclerotic heart disease of native coronary artery without angina pectoris; F41.9 Anxiety disorder, unspecified; K21.9 Gastro-esophageal reflux disease without esophagitis; I35.0 Nonrheumatic aortic (valve) stenosis; B96.1 Klebsiella pneumoniae [K. pneumoniae] as the cause of diseases classified elsewhere; B95.2 Enterococcus as the cause of diseases classified elsewhere; R74.8 Abnormal levels of other serum enzymes; B96.89 Other specified bacterial agents as the cause of diseases classified elsewhere; Z95.1 Presence of aortocoronary bypass graft; Z88.1 Allergy status to other antibiotic agents; Z88.8 Allergy status to other drugs, medicaments and biological substances; Y83.8 Other surgical procedures as the cause of abnormal reaction of the patient, or of later complication, without mention of misadventure at the time of the procedure
CPT/HCPCS: 36415; 36416; 36430; 51701; 74022; 74176; 80048; 80053; 80069; 80202; 81003; 83605; 83690; 83735; 84100; 84484; 85025; 86850; 86900; 86901; 87040; 94640; 94760; 96365; 96367; 96372; 96375; A4353; C9113; J1442; J1450; J1644; J2270; J2405; J2543; J2920; J3370; J3490; J7050; J7070; J7620; P9016; P9047